=== PATIENT | female | born 1970 | race Caucasian/White ===

== ENCOUNTER → 2018-01-04 09:23 | Outpatient (CLI) | payer MEDICAID, SELFPAY ==
--- NOTE | 2018-01-04 09:38 | MM_ITS ---
MM Dig screening mamm BI w/CAD CAD Screening COMPARISON: Digital mammograms with CAD 01/02/2017 and 02/06/2014 INDICATION: There is no personal or family history of breast cancer. TECHNIQUE: Standard CC and MLO images were obtained. R2 CAD reviewed. FINDINGS: The breasts are closed primarily of fat with very minimal scattered fibroglandular densities in each breast. There are few benign-appearing calcifications in each breast. There is no suspicious lesion and there are no suspicious microcalcifications. IMPRESSION: Fatty type breast parenchyma with no suspicious lesion seen BI-RADS Category: 2 Benign Finding(s) RECOMMENDED FOLLOW-UP: 1YR - 1 YEAR FOLLOW-UP (A letter has been sent to the patient regarding results of the study.)
--- NOTE | 2018-01-04 09:38 | US_ITS ---
US transvaginal HISTORY: ITS.REASON: pelvic pain ORDERING PHYSICIAN: Nelson Gabriel MD PATIENT AGE: 47 years Comparison: None FINDINGS: Uterus is 8 x 4 x 5 cm with a combined endometrial thickness of 9 mm. There are small nabothian cyst present. No obvious uterine mass. The right ovary is 3 x 1.8 cm. The left ovary is 2 x 1.7 cm. No adnexal mass is evident. No cul-de-sac fluid IMPRESSION: Endometrial thickness upper limits of normal otherwise negative pelvic ultrasound
== END ==
PROVIDERS: Family Provider Family Medicine; PCP Family Medicine; Visit Provider Obstetrics & Gynecology
DX: Z12.31 Encounter for screening mammogram for malignant neoplasm of breast (principal); R10.2 Pelvic and perineal pain
CPT/HCPCS: 76830; 77067

== ENCOUNTER 2020-05-03 20:34 | Observation (INO) | payer MEDICAID, SELFPAY ==
[2020-05-03 20:50] VITALS: BP 153/80; RESP 18; TEMP 36.7; O2SAT 99; BMI 68.5
[2020-05-03 21:35] VITALS: BP 129/51; PULSE 88; RESP 18; O2SAT 95
[2020-05-03 21:58] VITALS: BP 127/73; PULSE 88; RESP 18; O2SAT 99
[2020-05-03 21:59] LABS: Basophils # 0.1 K/mm3 (0-0.2); Basophils % 0.5 % (0.1-2.0); Eosinophils # 0.2 K/mm3 (0.0-0.4); Eosinophils % 1.1 % (0.1-12.0); Hematocrit 35.9 % (37.0-47.0); Hemoglobin 11.2 g/dL (12.2-16.2); Lymphocytes # 3.7 K/mm3 (0.7-4.5); Lymphocytes % 26.4 % (10-50); Mean Corpuscular HGB Conc 31.2 g/dL (31.8-35.4); Mean Corpuscular Hemoglobin 26.8 pg (27.0-31.2); Monocytes # 0.4 K/mm3 (0.1-1.0); Neutrophils # 9.7 K/mm3 (1.8-7.8); Platelet Count 440 K/mm3 (142-424); Red Blood Count 4.18 M/mm3 (4.20-5.40); Red Cell Distribution Width 14.7 % (11.5-17.5); White Blood Count 14.1 K/mm3 (4.8-10.8)
[2020-05-03 22:03] LABS: Chloride 100 mmol/L (98-107); Potassium 3.7 mmoL/L (3.5-5.1); Sodium 138 mmol/L (136-145)
[2020-05-03 22:05] LABS: Blood Urea Nitrogen 12 mg/dl (7-17); Creatinine Clearance Estimated 65 mL/min (50-200); Estimated Glomerular Filt Rate 75 ml/min (>60); GFR (African American) 91 ML/MIN (>60)
[2020-05-03 22:06] LABS: Alanine Aminotransferase 16 U/L (12-78); Albumin Level 3.8 g/dl (3.5-5.0); Albumin/Globulin Ratio 1.2 (1.1-1.8); Alkaline Phosphatase 84 U/L (38-126); Anion Gap 10.7 mEq/L (5-15); Aspartate Amino Transferase 25 U/L (14-36); Bilirubin,Total 0.2 mg/dl (0.2-1.3); Calcium 9.3 mg/dl (8.4-10.2); Carbon Dioxide 31 mmol/L (22.0-30.0); Globulin 3.2 g/dL (1.3-3.2); Glucose 170 mg/dl (74-100)
[2020-05-03 22:12] LABS: C-Reactive Protein 42.1 mg/L (0-4)
[2020-05-03 22:14] VITALS: BP 125/73; PULSE 77; RESP 18; O2SAT 97
[2020-05-03 22:24] LABS: Erythrocyte Sedimentation Rate 60 mm/hr (0-30)
--- NOTE | 2020-05-03 22:24 | ECG_ITS ---
APPROVED REPORT Exam: Resting ECG HR:83 bpm ECG Measurements Heart Rate 83 AXES UT 178 P 57 QRSd 74 QRS -7 QT 368 T 4 QTc 432 Conclusion Normal sinus rhythm Late R-wave progression Abnormal ECG Electronically signed by : Desean Ordoñez, 05/04/2020 10:57:27
--- NOTE | 2020-05-03 22:24 | XR_ITS ---
PROCEDURE: XR CHEST 2V CLINICAL HISTORY: chest pain COMPARISON: No exams were available for comparison FINDINGS: The cardiomediastinal silhouette and pulmonary vascularity are within normal limits. No lobar consolidation or collapse evident. There is a small area of increased density overlying the left apex at the 1st rib region and clavicle and may be due to summation artifact. Follow-up may confirm. Cannot exclude a sclerotic bony lesion or developing nodule. No acute bony abnormalities. IMPRESSION: No definite acute finding. Summation artifact versus sclerotic lesion in the left 1st rib or clavicle versus developing nodule. Consider follow-up to confirm stability. Dictated by: Dieudonne Andrews MD 05/04/2020 05:57 Dieudonne Andrews MD in [place] 05/04/2020 05:57
--- NOTE | 2020-05-03 22:40 | HMH.EDCP ---
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 The time I documented below is in addition to time spent performing reported procedures but includes the following listed in this critical care notation. Medical Decision Making - Medical Records Medical records reviewed: Yes: I reviewed the patient's medical records. - Adrián Inquiry Pt receiving controlled substance: No Vital Signs: 05/03/20 20:50 05/03/20 21:35 05/03/20 21:58 Temperature 98.0 F Temperature Source Oral Pulse Rate [Left] 88 88 Respiratory Rate 18 18 18 Blood Pressure [Right Arm] 153/80 H 129/51 L 127/73 Blood Pressure Mean [Right Arm] 104 77 91 Blood Pressure Source [Right Arm] Automatic Cuff Blood Pressure Position [Right Arm] Sitting 02 Sat by Pulse Oximetry 99 95 99 Oxygen Delivery Method Room Air Room Air Room Air 05/03/20 22:14 05/03/20 22:45 05/03/20 23:35 Temperature Temperature Source Pulse Rate [Left] 77 80 87 Respiratory Rate 18 18 18 Blood Pressure [Right Arm] 125/73 121/62 137/71 Blood Pressure Mean [Right Arm] 90 81 93 Blood Pressure Source [Right Arm] Blood Pressure Position [Right Arm] 02 Sat by Pulse Oximetry 97 95 95 Oxygen Delivery Method Room Air Room Air Room Air - Lab Data Lab results reviewed: Yes: I reviewed the patient's lab results. Lab Results 05/03/20 21:50: WBC 14.1 H, RBC 4.18 L, Hgb 11.2 L, Hct 35.9 L, MCV 86.0, MCH 26.8 L, MCHC 31.2 L, RDW 14.7, Plt Count 440 H, MPV 8.0, Neut % (Auto) 69.0, Lymph % (Auto) 26.4, Alger % (Auto) 3.0, Eos % (Auto) 1.1, Baso % (Auto) 0.5, Neut # (Auto) 9.7 H, Lymph # (Auto) 3.7, Alger # (Auto) 0.4, Eos # (Auto) 0.2, Baso # (Auto) 0.1, ESR 60 H 05/03/20 21:50: Sodium 138, Potassium 3.7, Chloride 100, Carbon Dioxide 31 H, Anion Gap 10.7, BUN 12, Creatinine 0.80, Estimated Creat Clear 65, Estimated GFR 75, Est GFR ( Amer) 91, Glucose 170 H, Calcium 9.3, Total Bilirubin 0.2, AST 25, ALT 16, Alkaline Phosphatase 84, C-Reactive Protein 42.1 H, Total Protein 7.0, Albumin 3.8, Globulin 3.2, Albumin/Globulin Ratio 1.2 05/03/20 21:50: Troponin I < 0.01, NT-Pro-B Natriuret Pep 86.6 05/03/20 21:50: TSH 2.12, Thyroxine (T4) 8.8 05/03/20 21:50: SARS-CoV-2 IgG Ab (Rapid) Negative, SARS-CoV-2 IgM Ab (Rapid) Negative Result diagrams: 05/03/20 21:50 05/03/20 21:50 Orders (Tests/Meds): ED MEDICATIONS Generic Name Dose Route Start Last Admin Trade Name Freq PRN Reason Stop Dose Admin Sodium Chloride 1,000 mls @ 999 mls/hr 05/03/20 22:30 05/03/20 22:28 Sod Chlor 0.9% 1000ml Bag IV 05/03/20 23:30 999 mls/hr .Q1H1M JELANI Administration Discontinued Medications Generic Name Dose Route Start Last Admin Trade Name Freq PRN Reason Stop Dose Admin Aspirin 324 mg 05/03/20 22:24 05/03/20 22:27 Aspirin 81mg Chewable Tablet PO 05/03/20 22:25 324 mg ONCE O
[2020-05-03 22:45] VITALS: BP 121/62; PULSE 80; RESP 18; O2SAT 95
[2020-05-03 22:48] LABS: NT Pro Brain Natriuretic Pep. 86.6 pg/mL (0-125)
[2020-05-03 22:55] LABS: Troponin I < 0.01 ng/ml (0.00-0.034)
[2020-05-03 23:13] LABS: Coronavirus 19 IgG Antibody Negative (Negative); Coronavirus 19 IgM Antibody Negative (Negative)
[2020-05-03 23:15] LABS: T4 (Thyroxine) 8.8 ug/dl (5.53-11.0)
[2020-05-03 23:28] LABS: Thyroid Stimulating Hormone 2.12 uIU/mL (0.465-4.68)
[2020-05-03 23:35] VITALS: BP 137/71; PULSE 87; RESP 18; O2SAT 95
[2020-05-04] VITALS (17 sets, daily range): BP systolic 108–137; BP diastolic 42–77; PULSE 70–100; RESP 16–22; TEMP 36.6–36.9; O2SAT 90–96; BMI 61.2; BMI 61.7
--- NOTE | 2020-05-04 | IR_ITS ---
APPROVED REPORT Patient Location: [facility] Hand: YAMILEX Churchill RT (R) PROCEDURES Left heart catheterization Left ventriculogram Selective coronary angiogram INDICATION Unstable angina Informed consent was obtained prior to the procedure. COMPLICATIONS None Estimated Blood Loss: less than 10ml TECHNIQUE One percent lidocaine used to anesthetize the right anterior aspect of the wrist. The right radial artery was accessed via the Seldinger technique. A 6 Chinese sheath was placed in the right radial artery. 2.5 mg of verapamil, 800 mcg of nitroglycerin, 1mg Lidocaine and 5000 U Heparin were given through the arterial sheath. The trap catheter was also used to perform left heart catheterization, left ventriculogram and selective coronary angiogram. At the end of the procedure the sheath was removed good hemostasis was achieved using Traclet band, patient was transferred to the postop holding area in stable condition. ANGIOGRAPHIC RESULTS The left main artery Normal The left anterior descending artery Normal The circumflex artery Normal The right coronary artery Dominant normal The LUU ventriculogram reveals Normal 65% The left ventricular end-diastolic pressure Normal 10 mmHg IMPRESSION Normal coronary arteries Normal ejection fraction Normal left ventricular end-diastolic pressure PLAN 1. Evaluation of noncardiac symptoms Electronically signed by : Lakhwinder Monaco, 05/04/2020 13:09:01
--- NOTE | 2020-05-04 00:34 | PC.NURSE ---
patient up to floor via wheelchair.
--- NOTE | 2020-05-04 01:41 | PC.NURSE ---
She is A&Ox4. She denies SOA. Denies pain. Nitro paste removed from her left side of chest per her request. IV fluids refused. She is NPO and she verbalizes understanding. Oral care swabs available at bedside. She brought home meds but states her is taking them back home because they are in one of those medication containers. She reports feeling tired. 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 She refuses a bath. NSR on telemetry. Potty hat in bathroom and she was educated to use so that output could be measured. She verbalizes understanding. She reports that she has problems swallowing due to the hx of CVA. She also reports that she uses briefs at HS but states that she brought her own.
[2020-05-04 01:49] LABS: Troponin I < 0.01 ng/ml (0.00-0.034)
[2020-05-04 04:32] LABS: Basophils # 0.1 K/mm3 (0-0.2); Basophils % 0.6 % (0.1-2.0); Eosinophils # 0.2 K/mm3 (0.0-0.4); Eosinophils % 1.5 % (0.1-12.0); Hematocrit 33.6 % (37.0-47.0); Hemoglobin 10.4 g/dL (12.2-16.2); Lymphocytes # 3.8 K/mm3 (0.7-4.5); Lymphocytes % 33.5 % (10-50); Mean Corpuscular HGB Conc 31.1 g/dL (31.8-35.4); Mean Corpuscular Hemoglobin 26.9 pg (27.0-31.2); Mean Corpuscular Volume 86.3 fl (81-99); Mean Platelet Volume 8.4 fl (7.4-10.4); Monocytes # 0.4 K/mm3 (0.1-1.0); Monocytes % 3.3 % (1.7-9.3); Neutrophils % 61.1 % (37.0-80.0); Platelet Count 409 K/mm3 (142-424); Red Blood Count 3.89 M/mm3 (4.20-5.40); Red Cell Distribution Width 14.9 % (11.5-17.5); White Blood Count 11.5 K/mm3 (4.8-10.8)
[2020-05-04 04:38] LABS: Chloride 103 mmol/L (98-107); Potassium 3.9 mmoL/L (3.5-5.1); Sodium 139 mmol/L (136-145)
[2020-05-04 04:41] LABS: Anion Gap 9.9 mEq/L (5-15); Blood Urea Nitrogen 13 mg/dl (7-17); Carbon Dioxide 30 mmol/L (22.0-30.0); Chol/HDL Ratio 3.7 (1-3.5); Cholesterol 132 mg/dl (140-200); Creatinine Clearance Estimated 65 mL/min (50-200); Estimated Glomerular Filt Rate 75 ml/min (>60); GFR (African American) 91 ML/MIN (>60); Glucose 139 mg/dl (74-100); HDL Cholesterol 36 mg/dl (40-60); Triglycerides 127 mg/dl (30-150); VLDL Cholesterol 25 mg/dL (0-40)
[2020-05-04 05:13] LABS: POC Glucose,Bedside 134 (70-110)
[2020-05-04 05:17] LABS: Troponin I < 0.01 ng/ml (0.00-0.034)
--- NOTE | 2020-05-04 08:00 | CA_ITS ---
APPROVED REPORT EXAM: Comprehensive 2D, Doppler, and color-flow Echocardiogram Sexual Health Physician: Leti Lee RDCS Ht: 5 ft 2 in Wt: 375lbs BSA: 2.50 BP: 129/51 mmHg Indications: CP,DM,MORBID OBESITY 2D Dimensions LVDd 1.93 cm F: 3.9 - 5.3 M-Mode Dimensions RVDd 2.24 cm (0.9-2.6) LA Diam 2.78 cm (1.9-4.0) LVDd 5.45 cm (3.5-5.7) Ao Diam 2.47 cm (2.0-3.7) LVDs 3.67 cm (3.5-5.7) IVSd 0.72 cm (0.6-1.1) PWd 0.80 cm (0.6-1.1) EF (Teich) 60.50% FS 32.70% EDV (Teich) 144.40 mL ESV (Teich) 57.00 mL LV Diastology E Decel Time 170.00 (160-240 msec) E/A Ratio 1.2 MED E' 5.70 (< 7 cm/sec) E'/MED E' Ratio 20.30 (>14) LAT E' 10.80 (<10 cm/sec) E/LAT E' Ratio 10.71 (>14) Aortic Valve LVOT Max 125.00 (70-110 cm/s) LVOT VTI 30.66 cm AoV Peak Jeremias. 205.00 (50-130 cm/s) AO Peak GR. 16.80 mmHg AO Mean GR. 11.10 (<5 mmHg) AO VTI 49.43 (18-25 cm) Mitral Valve MV E Max Jeremias. 116.00 (40-130 cm/s) MV A Velocity 96.00 (40-130 cm/s) E/A Ratio 1.21 MV Decel. Time 170.00 (160-240 ms) MV PHT 50.00 ms Left Ventricle Left atrium is normal size, left ventricle is normal size, visually estimated ejection fraction 55% with no regional wall motion abnormality, there is no concentric left ventricular hypertrophy, diastolic parameters are within normal range. Right Ventricle Right atrium and right ventricle are normal size and contractility. Aortic Valve Aortic valve is minimally thickened and fibrosed, there is no aortic stenosis or aortic insufficiency. Mitral Valve Mitral valve is grossly normal. There is mild mitral regurgitation. Tricuspid Valve Tricuspid valve is grossly normal, there is mild tricuspid regurgitation, tricuspid regurgitation jet velocity is inadequate for calculation of the right ventricular systolic pressure. Pulmonic Valve Pulmonic valve is poorly visualized. Great Vessels Aortic root is normal size. Pericardium No significant pericardial effusion noted. Conclusion 1. Normal left ventricular size, preserved left ventricular systolic function visually estimated ejection fraction 55% with no regional wall motion abnormality, diastolic parameters are within normal range. 2. Mild mitral and tricuspid regurgitation. 3. No significant pericardial effusion noted. Electronically signed by : Saúl Madrigal, 05/04/2020 10:32:58
--- NOTE | 2020-05-04 08:00 | P.CONPHA_ITS ---
[facility] Pharmacy VTE Monitoring - Patient Demographics Admission date: 05/04/20 Report Date: 05/04/20 Time: 08:00 Allergies/Adverse Reactions: Patient Allergies amoxicillin [AMOXICILLIN] Allergy (Mild, Verified 05/04/20 00:43) cephalexin [From KEFLEX] Allergy (Mild, Verified 05/04/20 00:43) gabapentin [GABAPENTIN] Allergy (Mild, Verified 05/04/20 00:43) Penicillins [PENICILLINS] Allergy (Mild, Verified 05/04/20 00:43) apple Allergy (Verified 05/04/20 00:44) Height: 1.57 m Weight: 151.755 kg Patient Problems: Current Active Problems Chest pain (Acute) Obesity (Acute) Diabetes (Acute) Subdural hygroma (Acute) - VTE Risk Labs: VTE Related Lab Results Hgb 10.4 g/dL (12.2-16.2) L 05/04/20 04:20 Hct 33.6 % (37.0-47.0) L 05/04/20 04:20 Plt Count 409 K/mm3 (142-424) 05/04/20 04:20 BUN 13 mg/dl (7-17) 05/04/20 04:20 Creatinine 0.80 mg/dl (0.52-1.04) 05/04/20 04:20 Estimated Creat Clear 65 mL/min (50-200) 05/04/20 04:20 Was VTE Risk Assessment Performed: Yes VTE Score: 5 VTE Risk Level: Low Risk Clinical Trial Participant: No - Prophylaxis VTE Prophylaxis Ordered?: Yes Types of VTE Prophylaxis: TEDS Knee High Location of Applied Device: Bilateral Lower Extremeties
--- NOTE | 2020-05-04 09:26 | HMH.HP ---
*Admission Date: 05/03/20 <Brittaney Soto 05/04/20 09:34> *Chief complaint: Chest pain, Right-sided weakness <05/04/20 09:34> *History of present illness: Ms. Nova is a 50yo white female with history of DM, HTN, HLP, CVA, obesity, and subdural hygroma who sees Dr. Odonnell in [facility] for her primary care. She presented to the [facility] ED for further evaluation yesterday evening due to concern for episodes of chest pain and lower extremity edema which she has been experiencing for about one week. She was seen at the [facility] ED earlier this week for some right-sided weakness which was felt to be related to subdural hygroma, however, she declined transfer to [place] for neurology consult and left AMA. She was also having the chest pain and swelling at that time, and when they did not improve, she decided to come to [facility] ED for a second opinion. Upon arrival, EKG showed SR with poor R wave progression anteriorly. Initial troponin was normal. Her WBC was elevated as was Sed rate and CRP. Her CXR showed no acute changes. She was admitted for further evaluation and cardiology was consulted. This morning, she is resting quietly in bed. She reports continued intermittent chest discomfort without radiation, SOB, diaphoresis, lightheadedness, or nausea. She notes chronic back and leg pain which is tolerable. She has been up to the bathroom to void with standby assist. <Brittaney Soto 05/04/20 10:00> [facility] History Medical History: Reports:: Asthma, Depression, Diabetes Mellitus Type 2, Hyperlipidemia, Hypertension Denies:: Cancer, Diabetes Mellitus Type 1, MRSA <Darin Soto05/04/20 09:34> *Have you ever received a pneumonia vaccine?: Yes <Darin Soto05/04/20 09:34> *Have you received a flu vaccine this season?: No <Charles05/04/20 09:34> Other Medical History: Reports: Arthritis, Other <CharlesDarin05/04/20 09:34> Other Surgeries: Yes: Colonoscopy, Tubal Ligation, Other (Cyst removed.) <Darin Soto05/04/20 09:34> Amputation: No <Charles05/04/20 09:34> Fractures: No <05/04/20 09:34> - *Social History Last grade of school completed: High school graduate <Charles05/04/20 09:34> Smoking Status: Former smoker <Charles05/04/20 09:34> Tobacco Type: cigarettes <Charles05/04/20 09:34> Alcohol Intake: never <Charles,05/04/20 09:34> Substance Use Type: denies use <Charles05/04/20 09:34> *Occupational Status:: disabled <Charles05/04/20 09:34> Housing: other <05/04/20 09:34> Household Members: other <05/04/20 09:34> *Travel in the last 8 weeks: None <Charles,05/04/20 09:34> - Psychiatric History Pschychiatric History:: Reports:: Depression <Charles05/04/20 09:34> Family Hx:: Cancer, Hyperlipidemia, Hypertension, Thyroid Disorder <05/04/20 09:34> Review of Systems - Constitutional Reports headache(s), Reports weakness, Reports weight gain, Denies fever(s) <Charles05/04/20 09:34> - Eyes Denies blurry vision, Denies change in vision <Charles,05/04/20 09:34> - ENT Denies dizziness, Denies nasal congestion, Denies nasal discharge, Denies post nasal drip, Denies sinus pressure, Denies sore throat <Charles05/04/20 09:34> - *Cardiovascular Reports chest pain, Reports chest pain at rest, Reports shortness of breath, Reports shortness of breath with activity, Reports generalized swelling, Reports leg swelling, Reports lightheadedness <Darin Soto05/04/20 09:34> - *Respiratory Reports cough, Reports shortness of breath, Denies chest congestion <Charles05/04/20 09:34> - *Gastrointestinal Denies abdominal pain, Denies change in bowel habits, Denies change in stools, Denies loose stools, Denies nausea, Denies vomiting <Brittaney Soto - 05/04/20 09:34> - *Genitourinary Denies difficulty urinating, Denies blood in urine <Brittaney Soto 05/04/20 09:34> - *Musculoskeletal Reports back pa
--- NOTE | 2020-05-04 09:36 | HMH.CNCARD ---
History of Present Illness Consult date: 05/04/20 Requesting physician: Evangelist Bhakta Consult reason: chest pain Chief complaint: Chest pain Additional Medical History:: 1. 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 Chronic anticoagulation therapy 2. Diabetes mellitus, treated since 2016 3. Hyperlipidemia, treated since 2016 4. Reported history of atrial fibrillation per patient, on chronic anticoagulation 5. History of tobacco use of greater then [id number] history (4 packs/day for 25 years) discontinued, 2015 6. Subdural hygromas 7. Morbid obesity History of present illness: 50-year-old white female with history as noted above presented to the [facility] emergency department for a second opinion regarding chest pain and lower extremity edema. Patient relates recurrent episodes of substernal discomfort described as both a sharp stabbing pain and a fullness or pressure sensation without radiation to arms or back since Thursday. Symptoms would last only minutes in duration with no associated significant shortness of breath or nausea. She denies any recent fever, chills, cough, vomiting or diarrhea. She has noted some swelling in her upper and lower extremities over the last few days as well but does admit to some dietary indiscretion regarding salt. EKG in the ER showed sinus rhythm with poor R wave progression anteriorly. Patient was kept overnight for observation with troponins returning normal x3. Patient does relate a history of stroke in 2015 and has had some difficulty with remembering tests since then. She does feel like she had a cardiac work-up around that time for atrial fibrillation but is not 100% sure. She does know that she is on anticoagulation because of her stroke and an irregular heartbeat. Cardiology consulted for evaluation and recommendations. Preliminary echocardiogram today shows preserved ejection fraction with no significant valvular heart disease. [facility] History Medical History: Reports:: Asthma, Depression, Diabetes Mellitus Type 2, Hyperlipidemia, Hypertension Denies:: Cancer, Diabetes Mellitus Type 1, MRSA *Have you ever received a pneumonia vaccine?: Yes *Have you received a flu vaccine this season?: No Other Medical History: Reports: Arthritis, Other Other Surgeries: Yes: Colonoscopy, Tubal Ligation, Other (Cyst removed.) Amputation: No Fractures: No - *Social History Last grade of school completed: High school graduate Smoking Status: Former smoker Tobacco Type: cigarettes Alcohol Intake: never Substance Use Type: denies use *Occupational Status:: disabled Housing: other Household Members: other *Travel in the last 8 weeks: None - Psychiatric History Pschychiatric History:: Reports:: Depression Family Hx:: Cancer, Hyperlipidemia, Hypertension, Thyroid Disorder Meds Home Medications Medication Instructions Recorded Confirmed Type albuterol sulfate 90 mcg/actuation 1 puff INHALATION Q4-6H PRN 12/29/17 05/04/20 History aerosol inhaler allopurinol 100 mg tablet 100 mg PO DAILY tab 12/29/17 05/04/20 History apixaban 5 mg tablet 5 mg PO BID 12/29/17 05/04/20 History aspirin 81 mg tablet,delayed 81 mg PO DAILY tab 12/29/17 05/04/20 History release duloxetine 60 mg capsule,delayed 60 mg PO BID cap 12/29/17 05/04/20 History release lisinopril 10 mg tablet 10 mg PO DAILY tab 12/29/17 05/04/20 History loratadine 10 mg capsule 10 mg PO DAILY cap 12/29/17 05/04/20 History metoprolol succinate 50 mg 50 mg PO DAILY tab 12/29/17 05/04/20 History tablet,extended release 24 hr olopatadine 0.1 % eye drops 1 drp OPHTHALMIC BID 12/29/17 05/04/20 History pravastatin 40 mg tablet 20 mg PO HS tab 12/29/17 05/04/20 History selenium sulfide 2.5 % shampoo 1 dose TOPICAL WEEKLY 12/29/17 05/04/20 History torsemide 20 mg tablet 20 mg PO DAILYP PRN 12/29/17 05/04/20 History sitagliptin 100 mg tablet 100 mg PO DAILY 04/26/19 05/04/20 History Famotidine 40 mg PO BID 10
[2020-05-04 11:11] LABS: Basophils % 0.4 % (0.1-2.0); Eosinophils # 0.2 K/mm3 (0.0-0.4); Eosinophils % 1.5 % (0.1-12.0); Hematocrit 34.7 % (37.0-47.0); Hemoglobin 10.8 g/dL (12.2-16.2); Lymphocytes # 3.2 K/mm3 (0.7-4.5); Lymphocytes % 31.6 % (10-50); Mean Corpuscular Hemoglobin 27.4 pg (27.0-31.2); Mean Corpuscular Volume 88.5 fl (81-99); Mean Platelet Volume 8.2 fl (7.4-10.4); Monocytes # 0.5 K/mm3 (0.1-1.0); Monocytes % 4.5 % (1.7-9.3); Neutrophils # 6.3 K/mm3 (1.8-7.8); Platelet Count 368 K/mm3 (142-424); Red Blood Count 3.93 M/mm3 (4.20-5.40); Red Cell Distribution Width 14.9 % (11.5-17.5); White Blood Count 10.1 K/mm3 (4.8-10.8)
[2020-05-04 11:22] LABS: POC Glucose,Bedside 126 (70-110)
--- NOTE | 2020-05-04 13:40 | PC.NURSE ---
verified with catheterization laboratory technician it was okay to order a diabetic and cardiac diet on patient
--- NOTE | 2020-05-04 15:16 | PC.NURSE ---
patient has been drowsy since return from [facility]. has been awake and drinking and eating. no complaints. tracelet being turned down per protocol. rings out as needed. systems within normal limits. no signs of bleeding. vitals stable remains on room air. will continue to monitor.
--- NOTE | 2020-05-04 17:27 | PC.NURSE ---
telfa and tegaderm applied to cath site with no signs of bleeding or hematoma. education given on post cath care
--- NOTE | 2020-05-05 22:14 | HMH.DCSUM ---
General - General Admission date:: 05/04/20 <Evangelist Bhakta - 05/16/20 11:07> 05/04/20 <Kelsey Simmons - 05/05/20 22:40> Discharge date: 05/04/20 <IrisAlejandraKelsey - 05/05/20 22:40> HPI HPI: Ms. Nova is a 50yo white female with history of DM, HTN, HLP, CVA, obesity, and subdural hygroma who sees Dr. Odonnell in [facility] for her primary care. She presented to the [facility] ED for further evaluation due to concern for episodes of chest pain and lower extremity edema which she had been experiencing for about one week. She was seen at the [facility] ED earlier this week for some right-sided weakness which was felt to be related to subdural hygroma. However, she declined to transfer to [place] for neurology consult and left AMA. She was also having the chest pain and swelling at that time. When they did not improve, she decided to come to [facility] ED for a second opinion. Upon arrival, EKG showed SR with poor R wave progression anteriorly. Initial troponin was normal. Her WBC was elevated as was Sed rate and CRP. Her CXR showed no acute changes. She was admitted for further evaluation and cardiology was consulted. The following morning, she was resting quietly in bed. She reported continued intermittent chest discomfort without radiation, SOB, diaphoresis, lightheadedness, or nausea. She noted chronic back and leg pain which was tolerable. She had been up to the bathroom to void with standby assist. <IrisAlejandraKelsey - 05/05/20 22:40> Hospital Course Hospital Course: Patient was admitted with atypical chest pain but with resolution after transdermal nitroglycerin application. EKG was abnormal with poor R wave progression anteriorly. Patient had normal troponins x3. She had multiple cardiac risk factors to include diabetes hypertension, hyperlipidemia and morbid obesity. Therefore she did undergo a cardiac catheterization: [facility] results: ANGIOGRAPHIC RESULTS The left main artery Normal The left anterior descending artery Normal The circumflex artery Normal The right coronary artery Dominant normal The LUU ventriculogram reveals Normal 65% The left ventricular end-diastolic pressure Normal 10 mmHg IMPRESSION Normal coronary arteries Normal ejection fraction Normal left ventricular end-diastolic pressure PLAN 1. Evaluation of noncardiac symptoms After completion of cardiac cath and recovery patient had no further chest pain and was stable for discharge. Discharged to home in stable and satisfactory condition. See Data for other test results. Meds as per reconciliation sheet. To followup with cardiology in 1 week and with PCP, Dr. Odonnell, in 2 weeks. <Kelsey Simmons - 05/05/20 22:40> Objective Vital signs: Temp Pulse Resp BP Pulse Ox 98.3 F 87 18 121/50 L 95 05/04/20 17:22 05/04/20 17:25 05/04/20 17:25 05/04/20 17:25 05/04/20 17:25 <YonyEvangelist Dawson - 05/16/20 11:07> Temp Pulse Resp BP Pulse Ox 98.3 F 87 18 121/50 L 95 05/04/20 17:22 05/04/20 17:25 05/04/20 17:25 05/04/20 17:25 05/04/20 17:25 <Kelsey Simmons - 05/05/20 22:40> Narrative: Exam Vital signs and Labs for Last 24 Hours: Temp Pulse Resp BP Pulse Ox 98.3 F 87 18 121/50 L 95 05/04/20 17:22 05/04/20 17:25 05/04/20 17:25 05/04/20 17:25 05/04/20 17:25 Laboratory Results - last 24 hr <BC 14.1 H, RBC 4.18 L, Hgb 11.2 L, Hct 35.9 L, MCV 86.0, MCH 26.8 L, MCHC 31.2 L, RDW 14.7, Plt Count 440 H, MPV 8.0, Neut % (Auto) 69.0, Lymph % (Auto) 26.4, Beltrami % (Auto) 3.0, Eos % (Auto) 1.1, Baso % (Auto) 0.5, Neut # (Auto) 9.7 H, Lymph # (Auto) 3.7, Beltrami # (Auto) 0.4, Eos # (Auto) 0.2, Baso # (Auto) 0.1, ESR 60 H 05/03/20 21:50: Sodium 138, Potassium 3.7, Chloride 100, Carbon Dioxide 31 H, Anion Gap 10.7, BUN 12, Creatinine 0.80, Estimated Creat Clear 65, Estimated GFR 75, Est GFR ( Amer) 91, Glucose 170 H, Calcium 9.3, Total Bilirubin 0.2, AST 25, ALT 16, Alkaline Phosphatase 84, C-Reactive
[2020-05-06 00:14] LABS: POC Glucose,Bedside 185 (70-110)
== END 2020-05-04 18:37 | disposition home or self-care (01) ==
LOC: ER 20:42 → 2ND 05-04 00:15
PROVIDERS: Internal Medicine; Admitting Provider Family Medicine; Emergency Provider Emergency Medicine; PCP Family Medicine; Visit Provider Family Medicine
DX: I25.118 Atherosclerotic heart disease of native coronary artery with other forms of angina pectoris (principal); I10 Essential (primary) hypertension; E11.9 Type 2 diabetes mellitus without 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s; Z87.891 Personal history of nicotine dependence; E66.01 Morbid (severe) obesity due to excess calories; Z68.44 Body mass index [BMI] 60.0-69.9, adult; I48.20 Chronic atrial fibrillation, unspecified; Z79.4 Long term (current) use of insulin; Z79.82 Long term (current) use of aspirin; Z79.01 Long term (current) use of anticoagulants; Z88.0 Allergy status to penicillin; Z88.1 Allergy status to other antibiotic agents; I69.311 Memory deficit following cerebral infarction; Z79.899 Other long term (current) drug therapy
CPT/HCPCS: 36415; 71046; 80048; 80053; 80061; 82962; 83735; 83880; 84436; 84443; 84484; 85025; 85651; 86140; 86328; 93005; 93306; 93458; 96365; 99152; 99284; C1725; C1769; G0378; J1644; Q9967

== ENCOUNTER → 2020-07-02 17:26 | Outpatient (CLI) | payer MEDICAID, SELFPAY ==
[2020-07-02 19:09] LABS: Coronavirus 19 IgG Antibody Negative (Negative); Coronavirus 19 IgM Antibody Negative (Negative)
== END ==
PROVIDERS: PCP Family Medicine; Visit Provider Specialist
DX: G47.30 Sleep apnea, unspecified (principal); I10 Essential (primary) hypertension; E66.9 Obesity, unspecified; Z86.79 Personal history of other diseases of the circulatory system; Z68.44 Body mass index [BMI] 60.0-69.9, adult
CPT/HCPCS: 36415; 86328; 95811

== ENCOUNTER → 2020-07-03 11:14 | Outpatient (CLI) | payer MEDICAID, SELFPAY ==
--- NOTE | 2020-07-03 11:14 | MR_ITS ---
PROCEDURE: MR HEAD/BRAIN WO/W CON CLINICAL INDICATION: abnormal CT Head Dizziness, weakness, altered gait COMPARISON: No exams were available for comparison TECHNIQUE: Routine multiplanar multi echo sequences are performed without and with gadolinium enhancement. FINDINGS: No midline shift, mass effect, intracranial hemorrhage, or hydrocephalus is evident. The cerebellopontine angles, cerebellum, and brainstem have an unremarkable appearance. No enhancing lesions are apparent. Encephalomalacia changes are present in the left parieto-occipital region. This area does not demonstrate contrast enhancement. Small T2 white matter hyperintensity is present in the left frontal parietal junction nonspecific. There is prominence of the subdural space in the frontal and parietal regions bilaterally left greater than right suggesting bilateral subdural hygromas. No dural enhancement or no acute subdural hemorrhage is evident. The pituitary, optic chiasm, corpus callosum, and craniocervical junction have an unremarkable appearance. The hippocampal gyri are symmetric as are the temporal horns of the lateral ventricles. No mastoid effusion or sinus air-fluid level. IMPRESSION: Encephalomalacia changes in the left parietal occipital region with a nonspecific T2 hyperintensity in the left frontal parietal junction and right frontal lobe. Bilateral frontal parietal subdural hygromas left larger than right. Dictated by: Dieudonne Andrews MD 07/11/2020 09:01 Dieudonne Andrews MD in [place] 07/11/2020 09:01
[2020-07-03 11:45] LABS: Blood Urea Nitrogen 13 mg/dl (7-17); Estimated Glomerular Filt Rate 66 ml/min (>60); GFR (African American) 80 ML/MIN (>60)
== END ==
PROVIDERS: PCP Family Medicine; Visit Provider Specialist
DX: R42 Dizziness and giddiness (principal); G96.08 Other cranial cerebrospinal fluid leak; R93.0 Abnormal findings on diagnostic imaging of skull and head, not elsewhere classified
CPT/HCPCS: 36415; 70553; 82565; 84520; A9576

== ENCOUNTER → 2020-11-12 12:13 | Outpatient (CLI) | payer MEDICAID, SELFPAY ==
--- NOTE | 2020-11-12 12:22 | XR_ITS ---
PROCEDURE: XR FOOT WT BEARING LT 3V CLINICAL INDICATION: foot pain COMPARISON: No exams were available for comparison FINDINGS: No fracture or dislocation. No lytic or blastic change. There is normal mineralization. The joint spaces are well-preserved. No significant degenerative/arthritic changes. No erosive changes evident. Other findings:Calcaneal spur is noted IMPRESSION: No acute findings. Dictated by: Kyleigh Conteh 11/12/2020 14:34 Kyleigh Conteh in [place] 11/12/2020 14:34
--- NOTE | 2020-11-12 12:22 | XR_ITS ---
PROCEDURE: XR FOOT WT BEARING RT 3V CLINICAL INDICATION: foot pain COMPARISON: No exams were available for comparison FINDINGS: No fracture or dislocation. The tarsals, metatarsals and phalanges are unremarkable. Calcaneal spur is noted. No significant soft tissue abnormality. IMPRESSION: No acute findings. Dictated by: Kyleigh Conteh 11/12/2020 14:16 Kyleigh Conteh in [place] 11/12/2020 14:16
== END ==
PROVIDERS: PCP Family Medicine; Visit Provider Nurse Practitioner
DX: M79.672 Pain in left foot (principal); M79.671 Pain in right foot
CPT/HCPCS: 73630

== ENCOUNTER → 2021-06-27 16:32 | Outpatient (CLI) | payer MEDICAID, SELFPAY ==
--- NOTE | 2021-06-27 16:33 | MM_ITS ---
PROCEDURE INFORMATION: Exam: MG Bilateral Screening 3D Mammography Exam date and time: 06/27/2021 4:33 PM Age: 51 years old Clinical indication: Encounter for screening mammogram for malignant neoplasm of breast TECHNIQUE: Imaging protocol: Bilateral screening tomosynthesis and 2D mammography including computer-aided detection (CAD) when performed. COMPARISON: 1. MG SCBI MM Dig screening mamm BI w/CAD 01/04/2018 9:49 AM 2. MG DMSB DIG MAMM-SCREEN LILY W/CAD 01/02/2017 9:12 AM FINDINGS: MAMMOGRAPHY: Breast composition: The breasts are almost entirely fatty. Mass: None. Architectural distortion: None. Calcifications: No suspicious calcifications. Asymmetric density: None. Skin thickening: None. Axillary adenopathy: None. IMPRESSION: No mammographic evidence of malignancy. Annual screening is recommended unless otherwise clinically indicated. ASSESSMENT: BI-RADS Category 1: Negative
== END ==
PROVIDERS: PCP Family Medicine; Visit Provider Nurse Practitioner Obstetrics & Gynecology
DX: Z12.31 Encounter for screening mammogram for malignant neoplasm of breast (principal)
CPT/HCPCS: 77063; 77067

== ENCOUNTER → 2021-07-08 13:12 | Outpatient (CLI) | payer MEDICAID, SELFPAY ==
--- NOTE | 2021-07-08 13:12 | US_ITS ---
FINAL REPORT CLINICAL HISTORY: postmenopausal bleeding FINDINGS: Transvaginal sonographic images of the pelvis were obtained. The uterus measures 9.4 x 4.4 cm and is at the upper limits of normal in size. The endometrium measures 1.1 cm. No uterine mass is identified. The right ovary measures 3 cm in length and left ovary is not seen. Normal blood flow seen to the ovaries. There is no evidence of free fluid. IMPRESSION: The endometrium measures 1.1 cm. If postmenopausal this finding is abnormal and gynecological exam is recommended. Reviewed, Interpreted and Dictated by Maurilio Lynn MD Transcribed by Miladys Lopez Authenticated by Maurilio Lynn MD on 07/08/2021 04:57:58 PM [facility]
== END ==
PROVIDERS: PCP Family Medicine; Visit Provider Nurse Practitioner Obstetrics & Gynecology
DX: N95.0 Postmenopausal bleeding (principal)
CPT/HCPCS: 76830

== ENCOUNTER → 2023-06-08 12:59 | Outpatient (CLI) | payer MEDICAID, SELFPAY ==
--- NOTE | 2023-06-08 13:00 | CA_ITS ---
APPROVED REPORT EXAM: Comprehensive 2D, Doppler, and color-flow Echocardiogram Lead Generator: Lissett Greene CRT Ht: 5 ft 2 in Wt: 282lbs BSA: 2.21 BP: 147/48 mmHg Indications: Shortness of Breath, Diabetes, Obesity, Hyperlipidemia, Hypertension/HDD, Pre-Op 2D Dimensions Left Atrium 3.83 cm LVEF (Cameron's) 50.60 % LVOT 2.08 cm (M/F) 1.5-2.5 LV Volume 104.00 mL LA Volume 25.30 mL LA Volume Index 11.40 mL/m2 (M/F) 16-34 EF AP4 44.80 % EF AP2 54.1 % EF BP 50.6 % GL Strain -16.3 % M-Mode Dimensions RVDd 2.51 cm (0.9-2.6) LVDd 3.96 cm (3.5-5.7) Ao Diam 3.92 cm (2.0-3.7) LVDs 2.64 cm (3.5-5.7) IVSd 1.66 cm (0.6-1.1) PWd 0.85 cm (0.6-1.1) EF (Teich) 62.50% FS 33.30% EDV (Teich) 68.30 mL TAPSE 3.00 (<1.7) ESV (Teich) 25.60 mL LV Diastology E Decel Time 181 (160-240 msec) E/A Ratio 1.39 LAT E' 9.9 (>= 10 cm/sec) LAT A' 8.90 cm/s E/LAT E' Ratio 8.85 (<= 14) Aortic Valve LVOT Max 109.0 (70-110 cm/s) ELGIN Index 1.02 cm2/m2 LVOT VTI 27.27 cm AoV Peak Jeremias. 182.0 (50-130 cm/s) AO Peak GR. 12.60 mmHg AO Mean GR. 7.10 (<5 mmHg) AO VTI 41.0 (18-25 cm) ELGIN (VTI) 2.26 (2.5-4.5 cm2) Mitral Valve MV E Max Jeremias. 88.0 (40-130 cm/s) MV A Velocity 63.0 (40-130 cm/s) E/A Ratio 1.39 MV Decel. Time 181 (160-240 ms) Tricuspid Valve TR P. Velocity 165.00 cm/s RAP Estimate 10.00 mmHg RVSP 20.90 mmHg Left Ventricle The left ventricle is normal size. The left ventricular systolic function is normal. The left ventricular ejection fraction is within the normal range. There is normal left ventricular wall thickness. There is normal LV segmental wall motion. The left ventricular diastolic function is normal. LVEF is 60%. Right Ventricle The right ventricle is normal size. The right ventricular systolic function is normal. Atria The left atrium size is normal. The right atrium size is normal. There is no Doppler evidence of interatrial shunt. Aortic Valve The aortic valve opens well. There is no aortic valvular stenosis. No aortic regurgitation is present. Mitral Valve The mitral valve is normal in structure. There is no mitral valve regurgitation noted. Tricuspid Valve The tricuspid valve leaflets are thin and pliable. Trace tricuspid regurgitation. There is insufficient TR jet to estimate RVSP. Pulmonic Valve The pulmonary valve is normal in structure. Trace pulmonic regurgitation. Great Vessels The aortic root is normal in size. The ascending aorta is normal in size. IVC is normal in size and collapses >50% with inspiration. Pericardium There is no pericardial effusion. Other Information Study Quality: Fair Conclusion Normal biventricular systolic function. No significant valvular stenosis or regurgitation. Electronically signed by : Sintia Waite MD 06/10/2023 11:52:16
--- NOTE | 2023-06-08 13:09 | US_ITS ---
FINAL REPORT CLINICAL HISTORY: decreased pedal pulses, obesity, DM, HLD, TIA COMPARISON: None FINDINGS: ANKLE-BRACHIAL PRESSURE INDICES Pressure indices are as follows: RIGHT LOWER EXTREMITY: Ankle-brachial pressure index: 1.2 Comments: Normal LEFT LOWER EXTREMITY: Ankle-brachial pressure index: 1.1 Comments: Normal IMPRESSION: No evidence of significant obstructive peripheral vascular disease of the lower extremities Reviewed, Interpreted and Dictated by Pako Yang III, MD Transcribed by Gladis Rolon Authenticated and [facility]
== END ==
LOC: RT 13:00
PROVIDERS: PCP Family Medicine; Visit Provider Nurse Practitioner Family
DX: R06.00 Dyspnea, unspecified (principal); R09.89 Other specified symptoms and signs involving the circulatory and respiratory systems; I25.10 Atherosclerotic heart disease of native coronary artery without angina pectoris; I48.91 Unspecified atrial fibrillation
CPT/HCPCS: 93306; 93923

== ENCOUNTER → 2023-06-25 10:05 | Outpatient (CLI) | payer MEDICAID, SELFPAY ==
[2023-06-25 10:40] LABS: Basophils # 0.1 K/mm3 (0-0.2); Basophils % 0.7 % (0.1-2.0); Eosinophils # 0.2 K/mm3 (0.0-0.4); Eosinophils % 1.6 % (0.1-12.0); Hematocrit 35.8 % (37.0-47.0); Hemoglobin 11.5 g/dL (12.2-16.2); Lymphocytes # 4.1 K/mm3 (0.7-4.5); Lymphocytes % 39.9 % (10-50); Mean Corpuscular HGB Conc 32.2 g/dL (31.8-35.4); Mean Corpuscular Hemoglobin 27.7 pg (27.0-31.2); Mean Platelet Volume 8.2 fl (7.4-10.4); Monocytes # 0.4 K/mm3 (0.1-1.0); Monocytes % 3.5 % (1.7-9.3); Neutrophils # 5.6 K/mm3 (1.8-7.8); Neutrophils % 54.3 % (37.0-80.0); Platelet Count 329 K/mm3 (142-424); Red Blood Count 4.16 M/mm3 (4.20-5.40); Red Cell Distribution Width 15.7 % (11.5-17.5); White Blood Count 10.3 K/mm3 (4.8-10.8)
[2023-06-25 11:00] LABS: Chloride 101 mmol/L (98-107); Sodium 135 mmol/L (136-145)
[2023-06-25 11:01] LABS: Potassium 4.7 mmoL/L (3.5-5.1)
[2023-06-25 11:03] LABS: Alanine Aminotransferase 24 U/L (12-78); Albumin/Globulin Ratio 1.3 (1.1-1.8); Alkaline Phosphatase 102 U/L (38-126); Anion Gap 12.7 mEq/L (5-15); Aspartate Amino Transferase 27 U/L (14-36); Bilirubin,Total 0.3 mg/dl (0.2-1.3); Blood Urea Nitrogen 13 mg/dl (7-17); Carbon Dioxide 26 mmol/L (22.0-30.0); Estimated Glomerular Filt Rate 65 ml/min (>60); GFR (African American) 79 ML/MIN (>60)
[2023-06-25 11:04] LABS: Calcium 8.8 mg/dl (8.4-10.2); Glucose 210 mg/dl (74-100)
[2023-06-25 13:07] LABS: Thyroid Stimulating Hormone 3.02 uIU/mL (0.465-4.68)
== END ==
PROVIDERS: PCP Family Medicine; Visit Provider Specialist
DX: R20.2 Paresthesia of skin (principal); G62.9 Polyneuropathy, unspecified; E66.9 Obesity, unspecified; E11.9 Type 2 diabetes mellitus without 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s; Z79.84 Long term (current) use of oral hypoglycemic drugs
CPT/HCPCS: 36415; 80053; 82746; 83036; 84443; 85025

== ENCOUNTER 2023-09-03 14:17 | Outpatient (CLI) | payer MEDICAID, SELFPAY ==
[2023-09-03 14:45] LABS: Basophils # 0.1 K/mm3 (0-0.2); Basophils % 0.9 % (0.1-2.0); Eosinophils # 0.2 K/mm3 (0.0-0.4); Hematocrit 40.5 % (37.0-47.0); Hemoglobin 12.4 g/dL (12.2-16.2); Lymphocytes # 3.9 K/mm3 (0.7-4.5); Lymphocytes % 35.5 % (10-50); Mean Corpuscular HGB Conc 30.6 g/dL (31.8-35.4); Mean Corpuscular Volume 91.4 fl (81-99); Mean Platelet Volume 8.3 fl (7.4-10.4); Monocytes # 0.4 K/mm3 (0.1-1.0); Neutrophils # 6.3 K/mm3 (1.8-7.8); Neutrophils % 57.6 % (37.0-80.0); Platelet Count 341 K/mm3 (142-424); Red Blood Count 4.43 M/mm3 (4.20-5.40); Red Cell Distribution Width 15.5 % (11.5-17.5)
[2023-09-03 15:13] LABS: Alanine Aminotransferase 22 U/L (12-78); Albumin Level 3.8 g/dl (3.5-5.0); Albumin/Globulin Ratio 1.3 (1.1-1.8); Alkaline Phosphatase 86 U/L (38-126); Anion Gap 10.1 mEq/L (5-15); Aspartate Amino Transferase 30 U/L (14-36); Bilirubin,Total 0.3 mg/dl (0.2-1.3); Blood Urea Nitrogen 13 mg/dl (7-17); Calcium 8.9 mg/dl (8.4-10.2); Carbon Dioxide 30 mmol/L (22.0-30.0); Chloride 102 mmol/L (98-107); Estimated Glomerular Filt Rate 74 ml/min (>60); GFR (African American) 90 ML/MIN (>60); Glucose 150 mg/dl (74-100); Potassium 5.1 mmoL/L (3.5-5.1); Sodium 137 mmol/L (136-145); Total Protein,Serum 6.8 g/dl (6.3-8.2)
[2023-09-03 15:37] LABS: HCG,Quantitative < 2 mIU/ml (0-5.42)
== END 2023-09-03 23:59 ==
PROVIDERS: PCP Family Medicine; Visit Provider Nurse Practitioner Obstetrics & Gynecology
DX: N95.0 Postmenopausal bleeding (principal)
CPT/HCPCS: 36415; 80053; 84702; 85025

== ENCOUNTER 2023-09-07 08:42 | Day surgery (SDC) | payer MEDICAID, SELFPAY ==
[2023-09-04 11:57] VITALS: BMI 50.3
[2023-09-07] VITALS (8 sets, daily range): BP systolic 126–154; BP diastolic 56–88; PULSE 71–83; RESP 16–18; TEMP 35.9–36.2; O2SAT 93–97
[2023-09-07 09:05] LABS: POC Glucose,Bedside 273 (70-110)
[2023-09-07] MEDS: LACTATED RINGERS 1000ML 1,000 ML 25 ML IV (09:15)
--- NOTE | 2023-09-07 09:22 | EXP.ANES.CKL ---
[facility] Disclaimer: The information contained in this section may have been updated after the patient was seen, as this information can be updated by other users. Medical History Afib Diabetes History of atrial fibrillation History of CVA (cerebrovascular accident) Hyperlipidemia Hypertension Normal coronary arteries ADAMS on CPAP Postmenopausal bleeding Sleep apnea Surgical History History of D&C History of left salpingo-oophorectomy History of oral surgery Family History Other Alcoholism Anemia Asthma Cancer Diabetes Hyperlipidemia Hypertension Stroke Thyroid disorder Social History Smoking Status: Former smoker tobacco type: cigarettes alcohol intake: never substance use type: denies use current occupational status: disabled Travel in the last 8 weeks: None household members: other housing: other caffeine: Yes [facility] Anesthesia Checklist Patient Identification Patient Identification: Arm Band and Verbal (Name & ) Structural Data Admitted From: Home Planned Operative Procedure/s: Hyst/D & C Consent for Planned Operative Procedure(s) Verified: Yes NPO Status Verified Time NPO: 00:00 Chart Verification Results Verified: CBC and BMP Additional verifications Anesthesia Reactions: No Hx Blood Transfusions: Yes Blood Transfusion Reaction: No Airway Assessment Mallampati Score:: Class I C-Spine Mobility Assessed: Yes TMJ Mobility Assessed: Yes Dentition: Edentulous Neurological Assessment Level of Consciousness: Awake Hx Seizures: No Numbness or tingling in extremities: No Anesthesia Plan Anesthesia Risk discussed: Yes Anesthesia Plan: Verified ASA Class: III Anesthesia Type: General
[2023-09-07] MEDS: SODIUM CHLORIDE IRRIG SOLUTION 3,000 ML 200 ML IR (10:24)
[2023-09-07] MEDS: CLINDAMYCIN PHOSPHATE/D5W 900 MG/50 ML PIGGYBACK 106 MG IV (10:26)
[2023-09-07] MEDS: ROPIVACAINE 0.5% 30ML VIAL 150 MG (10:45)
--- NOTE | 2023-09-07 11:01 | P.OP_ITS ---
Date of procedure: 09/07/23 Pre-op Diagnosis:: Postmenopausal bleeding Post-op Diagnosis:: Postmenopausal bleeding, endometrial polyps Procedure performed:: Hysteroscopy with MyoSure resection. Surgeon:: George Cruz MD ASSOCIATE FINANCIAL ANALYST:: Other (Sara Vidales) Anesthesia: LMA Estimated blood loss (mL): 10 Clinical Note:: She is a 53-year-old lady who complains of bleeding postmenopausally. Ultrasound showed that the endometrium was thickened at 11 mm. As result of that she was offered hysteroscopy with MyoSure resection. Operative findings:: She had at least 3 polyps within the endometrial cavity. There was a long thin polyp as well as a larger anterior polyp approximately 5 mm in size. There was a third small polyp at the uterine cornua on the right side. The endometrium appeared somewhat lush as well. Operative note:: She was taken the operating room where LMA anesthesia was found to be adequate. She was prepped draped normal sterile fashion lithotomy position. A weighted speculum is placed in the vagina although it did not hold very well and as result of that we used right angle retractors. The anterior lip of the cervix was grasped and dilators used to dilate the cervix to approximately 7 mm. I then inserted the hysteroscope into the uterine cavity. The MyoSure device was then attached and the polyps were resected along with the endometrium. The samples were sent to pathology. We then injected approximately 20 cc of 0.25% ropivacaine at the 5:00 and 7:00 positions of the cervix. She tolerated the procedure well and was taken recovery room in excellent condition. All sponge, instrument counts were correct. The estimated blood loss was approximately 10 cc. Condition: stable Disposition: PACU Specimens:: Polyps, endometrial curettings Complications:: None
--- NOTE | 2023-09-07 11:07 | EXP.ANES.I ---
[facility] Anesthesia Record Part I Anesthesia Record I Intake, IV Amount: 600 Hydration: Adequate Estimated blood loss (mL): 10 Urine output (mL): 50 Blood Products used (#): none Blood Pressure: 141/85 SaO2: 93 Pulse Rate: 80 Airway Patency: Patent Respiratory Rate: 16 Temperature: 96.7 F Patient is:: Awake and Stable Stable to PACU at:: 11:03
[2023-09-07 11:13] LABS: POC Glucose,Bedside 238 (70-110)
--- NOTE | 2023-09-14 16:56 | P.PNANES_ITS ---
[facility] Anesthesia Record Part II Anesthesia Record Part II Discharge Time: 11:28 Destination: Surgical Day Care (OP Surgery) PACU nurse assessment reviewed?: Yes Patient Condition:: Good Anesthesia Complications:: None Swallowing reflex intact?: Yes Airway Patency: Patent Cyanosis?: No Blood Pressure: 134/82 SaO2: 96 Respiratory Rate: 16 Pulse Rate: 73 Temperature: 97.2 F Mental Status: Alert & Oriented Pain level:: 0 Nausea and/or vomitting:: None Intake, IV Amount: 0 Hydration: Adequate
[2023-09-14 16:57] VITALS: BP 134/82; PULSE 73; RESP 16; TEMP 36.2; O2SAT 96
== END 2023-09-07 11:58 | disposition home or self-care (01) ==
PROVIDERS: Visit Provider Nurse Practitioner Obstetrics & Gynecology
PROC: (CPT 58558; principal; 2023-09-07 10:00)
DX: N95.0 Postmenopausal bleeding (principal); N85.00 Endometrial hyperplasia, unspecified; E11.9 Type 2 diabetes mellitus without 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s
CPT/HCPCS: 58558; 82962; 96374

== ENCOUNTER 2025-01-20 14:01 | Outpatient (CLI) | payer MEDICAID, SELFPAY ==
--- OUTSIDE RECORDS SUMMARY | 2024-11-22 14:45 | XMS_ITS | Encounter Summary ---
Author Organization [place] [address] Care Team Providers Care Technical Service Rep Name Role Phone Domo Odonnell MD Primary Care Provider [phone] Lali Hyde APRN Unavailable [phone] Reason for Visit * Reason Comments Medication Management DM CCA initial * Consultation (Routine) - Pending Review Specialty Diagnoses / Procedures Referred By Contact Referred To Contact Pharmacist - Pharmacotherapy Diagnoses Type 2 diabetes mellitus with stage 2 chronic kidney disease, without long-term current use of insulin (HCC) Domo Odonnell MD [address] [place] [address] Phone: tel: fax: Referral ID Status Reason Start Date Expiration Date V isits Requested Visits Authorized [id number] Pending Review 10/27/2024 10/27/2025 99 [phone] Encounter Details Date Type Department Care Team (Latest Contact Info) Description 11/22/2024 2:45 PM EDT Telemedicine [facility] [address] [place] [address] Valentina Arellano [facility] Type 2 diabetes mellitus with stage 2 chronic kidney disease, without long-term current use of insulin (HCC) (Primary Dx) Social History Tobacco Use Types Packs/Day Years Used Date Smoking Tobacco: Former Cigarettes 4 33.2 0 07/06/1982 - 09/09/2015 Smokeless Tobacco: Never Alcohol Use Standard Drinks/Week Comments No 0 (1 standard drink = 0.6 oz pur e alcohol) [facility] Utilities Answer Date Recorded In the past 12 months has th e electric, gas, oil, or water company threatened to shut off services in your home? Yes 11/26/2023 Overall Financial Resource Strain (CARDIA) Answe r Date Recorded How hard is it for you to pa y for the very basics like food, housing, medical care, and heating? Not hard at all 11/26/2023 PHQ-2 Answer Date Recorded PHQ-2 Total Score 5 03/30/2024 [facility] [place] of Occupat ional Health - Occupational Stress Questionnaire Answer Date Recorded Do you feel stress - tense, restless, nervous, or anxious, or unable to sleep at night because your mind is troubled all the time - these days? Very much 11/26/2023 Exercise Vital Sign Answer Date Recorde d On average, how many days pe r week do you engage in moderate to strenuous exercise (like a brisk walk)? 0 days 11/26/2023 On average, how many minutes do you engage in exercise at this level? 0 min 11/26/2023 Hunger Vital Sign Answer Date Recorded Within the past 12 months, y ou worried that your food would run out before you got the money to buy more. Never true 11/26/19 24 Within the past 12 months, t he food you bought just didn't last and you didn't have money to get more. Never true 11/26/2023 PRAPARE - Transportation Answer Date Re corded In the past 12 months, has l ack of transportation kept you from medical appointments or from getting medications? Yes 11/04 In the past 12 months, has l ack of transportation kept you from meetings, work, or from getting things needed for daily living? Yes 11/26/2023 Housing Stability Vital Sign Answer Samuel e Recorded In the last 12 months, was t here a time when you were not able to pay the mortgage or rent on time? No 11/26/2023 In the past 12 months, how m any times have you moved where you were living? 1 11/26/2023 At any time in the past [address] [facility], were you homeless or living in a senior care (including now)? No 11/26/2023 Sexually Active Control Partners Comments Not Currently Comments No Sex and Gender Information Value Date Recorded Sex Assigned at Not on file Legal Sex Female 11:07 PM EDT Gender Identity Not on file Sexual Orientation Not on file documented as of this encounter Functional Status * Is the person deaf or does he/she have serious difficulty hearing? Answer Date of Assessment Author No 01/16/2022 2:30 PM EDT Ron Singh MA * Is the person blind or does he/she have serious difficulty seeing even when wearing glasses? Answer Date of Assessment Author No 01/16/2022 2:30 PM EDT Ron Singh MA * Does this person have serious difficulty walking or climbing stairs? Answer Date of Assessment Author No 01/16/2022 2:30 PM EDT Ron Singh MA * Does this person have difficulty dressing or bathing? Answer Date of Assessment Author No 01/16/2022 2:30 PM EDT Ron Singh MA * Because of a physical, mental or emotional condition, does this person have difficulty doing errands alone such as visiting a doctor's office or shopping? Answer Date of Assessment Author No 01/16/2022 2:30 PM EDT Ron Singh MA documented as of this encounter Mental Status * Because of a physical, mental or emotional condition, does this person have serious difficulty concentrating, remembering or making decisions? Answer Entry Date Author No 01/16/2022 2:30 PM EDT Ron Singh MA documented in this encounter Progress Notes * Valentina Arellano RPH - 11/22/2024 2:45 PM EDT Pharmacy Consult 11/22/2024 with Valentina Arellano RPH: Judi Nova was referred for pharmacist management of type 2 diabetes per collaborative care agreement. Patient started taking Trulicity with first dose 11/13/24 and has not taken second dose yet. Plan was to resume Mounjaro but insurance did not cover without failure or contraindication to Trulicity. Patient reports had some dizziness and stomach pain in the last week since taking first dose of Trulicity but patient reports had some of these symptoms prior to starting Trulicity as well. Patient reports had follow up with neurology this week and reported concerns about dizziness due toother comorbidities. Current diabetes regimen Dapagliflozin (Farxiga) 10 mg once daily Metformin 1000 mg twice daily Trulicity 0.75 mg once weekly - first dose 11/13, no dose sent Prior medications tried/failed Ozempic - side effects, dizzy, make sick Mounjaro 2.5 mg weekly - planned to restart 10/27/24 but not covered at [facility] d/t needing to try Trulicity first, previously tolerated well Insulin glargine - changed to non-insulin therapy Januvia - changed to GLP1 for higher efficacy (Bydureon ordered 2018 but never filled due to [place] denial) Medication Adherence Patient reports using pill box that she sets up weekly herself and missing doses less often than once monthly. Patient reports sometimes taking AM doses late due to sleeping in. Diet Briefly discussed and will plan to discuss further at future visits. Patient reports small amounts/grazing throughout the day, including lots of snacking. She reports she tries to eat a diverse diet with fruits, vegetables, grains. Patient does not choose or eat much meat per patient report today. Activity Patient reports trying to Get around more to help with her blood sugars, but not sure that it is helping. Will discuss more at future visits. Labs: Lab Results Component Value Date HGBA1C 10.0 (A) 10/27/2024 HGBA1C 8.1 (H) 03/30/2024 HGBA1C 8.0 (A) 03/30/2024 Lab Results Component Value Date MICROALBUR 10 04/22/2024 URINEMICROAL 46.9 10/27/2024 CREATININEUR 50 04/22/2024 LABMICR 30 - 300 (A) 04/22/2024 Lab Results Component Value Date CREATININE 0.97 10/27/2024 BUN 8 10/27/2024 NA 136 10/27/2024 K 4.6 10/27/2024 CL 101 10/27/2024 CO2 20 (L) 10/27/2024 GFRCKDEPI 68 10/27/2024 Lab Results Component Value Date WBC 14.7 (H) 10/27/2024 HGB 13.4 10/27/2024 HCT 43.4 10/27/2024 MCV 92.7 10/27/2024 PLT 385 (H) 10/27/2024 Health Maintenance Summary Upcoming Diabetic Eye Exam (Every 2 Years) Next due on 04/22/2026 04/22/2024 Registry Metric: DM Last Gradable [facility] Eye Exam Result Only the first 1 history entries have been loaded, but more history exists. Reported self-monitoring of blood glucose (SMBG) Patient has glucometer and Dexcom at home but is not checking her sugars at this time due to fear of needles and wanting to avoid due to this. Assessment/Plan: Medication Management - Patient willing to give 2nd dose of Trulicity since unsure if side effects or other ongoing symptoms unrelated to medication. - Patient will either put on Dexcom OR start checking fasting blood sugar 2-3 x/week. Offered to help with Dexcom in office if patient willing to come in - patient will think about it. - Patient will give second dose of Trulicity today. Counseling Provided - Goal A1c and blood sugars - Use of Dexcom and importance of monitoring blood sugars - Risk of uncontrolled diabetes - Medication mechanism and role of different medications working together Follow Up: 1 week with pharmacist to follow up on second dose of Trulicity and blood sugars. Thank you for consult. Pharmacist will continue to follow as needed Valentina Arellano RPH [facility] Delicatessen Manager Pharmacist documented in this encounter Plan of Treatment Upcoming Encounters Date Type Department Care Team (Late st Contact Info) Description 04/12/2025 12:40 PM EDT Office Visit [facility] [place] [address] [place] [address] Betsy Garcia, JANET [address] [address] Scheduled Referrals Name Type Priority Associated Diagnoses Order Schedule AMB REFERRAL TO PHARMACY/MEDICATION MANAGEMENT Outpatient Referral Routine Type 2 diabetes mellitus with stage 2 chronic kidney disease, without long-term current use of insulin (HCC) Ordered: 10/27/2024 documented as of this encounter Goals Goal Patient Goal Type Associated Problems Recent Progress Patient-Stated? Author Blood Pressure < 140/90 Blood Pressure 124/68(2024 1:56 PM EDT) No Belinda Yeboah MA BMI (Calculated) < 30 General 48.4(10/28/19 1:56 PM EDT) No Belinda Yeboah MA Maintain a healthy diet, exercise regularly and maintain an ideal body weight General No Lea Martinez RMA Stay Tobacco Free Lifestyle No Lea Martinez RMA HEMOGLOBIN A1C < 7.0 Result Component 10(10/27/2024 2:03 PM EDT) No Belinda Yeboah MA documented as of this encounter Visit Diagnoses Diagnosis Type 2 diabetes mellitus with stage 2 chronic kidney disease, without long-term current use of insulin (HCC)- Primary documented in this encounter Additional Health Concerns Assessment Noted Time PHQ-9 Depression Total Score: 17 024 1:00 PM EDT PHQ-2 Depression Total Score: 5 03/30/20 24 1:00 PM EDT documented as of this encounter Care Teams Technical Service Rep Relationship Specialty Start Date End Date Domo Odonnell MD [address] [place] [address] PCP - General Family Medicine 12/06/12 Lali Hyde APRN [address] [place] [address] Nurse Practitioner 05/16/16 documented as of this encounter
--- NOTE | 2025-01-20 14:00 | MM_ITS ---
PROCEDURE INFORMATION: Exam: MG Bilateral Screening 3D Mammography Exam date and time: 01/20/2025 2:08 PM Age: 54 years old Clinical indication: Screening examination TECHNIQUE: Imaging protocol: Bilateral Screening tomosynthesis and 2D mammography including computer-aided detection (CAD) when performed. COMPARISON: 1. MG MM DIG SCREENING MAMM BI W/CAD 06/27/2021 4:33 PM 2. MG SCBI MM Dig screening mamm BI w/CAD 01/04/2018 9:49 AM FINDINGS: MAMMOGRAPHY: Breast composition: The breasts are almost entirely fatty. Mass: No suspicious masses. Architectural distortion: None. Calcifications: No suspicious calcifications. Asymmetric density: None. Skin thickening: None. Axillary adenopathy: None. IMPRESSION: No mammographic evidence of malignancy. Annual screening is recommended unless otherwise clinically indicated. ASSESSMENT: BI-RADS Category 1: Negative.
--- OUTSIDE RECORDS SUMMARY | 2025-01-20 14:05 | XMS_ITS | Encounter Summary ---
Author Organization [place] [address] Care Team Providers Care Keno Writer/Runner Name Role Phone Domo Odonnell MD Primary Care Provider [phone] Lali Hyde LOG WASHER Unavailable [phone] Reason for Visit * Reason Onset Date Comments Results 10/28/2024 Labs 10/27/24 Encounter Details Date Type Department Care Team (Latest Contact Info) Description 10/28/2024 Results Follow-Up [facility] [address] [facility] [place] [address] Domo Odonnell MD [address] [place] [address] MICROALBUMIN/CREATINI NE RATIO URINE, CBC WITH DIFF, COMPREHENSIVE METABOLIC PANEL, Additional followed-up results: 3 Social History Tobacco Use Types Packs/Day Years Used Date Smoking Tobacco: Former Cigarettes 4 33.2 0 07/06/1982 - 09/09/2015 Smokeless Tobacco: Never Alcohol Use Standard Drinks/Week Comments No 0 (1 standard drink = 0.6 oz pur e alcohol) [facility] Utilities Answer Date Recorded In the past 12 months has e electric, gas, oil, or water company threatened to shut off services in your home? Yes 11/26/2023 Overall Financial Resource Strain (CARDIA) Francise r Date Recorded How hard is it for you to pa y for the very basics like food, housing, medical care, and heating? Not hard at all 11/26/2023 PHQ-2 Answer Date Recorded PHQ-2 Total Score 5 03/30/2024 [facility] - Occupational Stress Questionnaire Answer Date Recorded [...] any time in the past 12 m [facility], were you homeless or living in a nursing home (including now)? No 11/26/2023 Sexually Active Control [...] Ron Singh MA documented in this encounter Miscellaneous Notes * Telephone Encounter - Rosalind White RMA - 10/28/2024 9:16 AM EDT Images from the original note were not included. Select the most appropriate reason for this telephone message: Patient Calling for Results Patient called for results on Which Provider ordered the test? Dr Odonnell Date of test: 10/27/24 Advised patient of: abnormal result. Patient Instructions/ Questions: na Medications Ordered/Pended (if yes, list medication): N/A Medications/Orders Needed: N/A Pharmacy Location Verified: No Other: Please put in the patient results note that Pt is aware of the following results Domo Odonnell MD 10/28/2024 6:31 AM EDT +microalbumin Working on sugar control, already on [place] inhibitor and farxiga Remainder of labs are ok documented in this encounter Plan of Treatment Upcoming Encounters Date Type Department Care Team (Late st Contact Info) Description 04/12/2025 12:40 PM EDT Office Visit [facility] [place] [address] [place] [address] Betsy Garcia APRN [address] [facility] [address] [place] [address] documented as of this encounter Goals Goal [...] documented as of this encounter Visit Diagnoses Not on filedocumented in this encounter Additional Health Concerns Assessment Noted Time PHQ-9 Depression Total Score: 17 024 1:00 PM EDT PHQ-2 Depression Total Score: 5 03/30/20 24 1:00 PM EDT documented as of this encounter Care Teams Keno Writer/Runner Relationship Specialty Start Date End Date Domo Odonnell MD [address] [place] [address] PCP - General Family Medicine 12/06/12 Lali Hyde APRN [address] [place] [address] Nurse Practitioner 05/16/16 documented as of this encounter
--- OUTSIDE RECORDS SUMMARY | 2025-01-20 14:05 | XMS_ITS | Encounter Summary ---
Author Organization [place] [address] Care Team Providers Care Manufacturing Laborer Name Role Phone Domo Odonnell MD Primary Care Provider [phone] Lali Hyde DISPLAY DECORATOR Unavailable [phone] Reason for Visit * Reason Comments Medication Refill Encounter Details Date Type Department Care Team (Late st Contact Info) Description 11/21/2024 Refill [facility] [address] [facility] [place] [address] Domo Odonnell MD [address] [place] [address] Medication Refill Social History Tobacco Use Types Packs/Day Years Used Date Smoking Tobacco: Former Cigarettes 4 33.2 0 07/06/1982 - 09/09/2015 Smokeless Tobacco: Never Alcohol Use Standard Drinks/Week Comments No 0 (1 standard drink = 0.6 oz pur e alcohol) [facility] Utilities Answer Date Recorded In the past 12 months has [employer] electric, gas, oil, or water company threatened to shut off services in your home? Yes 11/26/2023 Overall Financial Resource Strain (CARDIA) Francise r Date Recorded How hard is it for you to pa y for the very basics like food, housing, medical care, and heating? Not hard at all 11/26/2023 PHQ-2 Answer Date Recorded PHQ-2 Total Score 5 03/30/2024 [facility] [place] of Occupat ional Health - Occupational Stress [...] any time in the past 12 m [facility], were you homeless or living in a detention (including now)? No 11/26/2023 Sexually Active Control [...] Ron Singh MA documented in this encounter Ordered Prescriptions Prescription Sig Dispense Quantity Refills Last Filled Start Date End Date metFORMIN (GLUCOPHAGE) 1,000 mg Oral TabletIndications:T ype 2 diabetes mellitus with stage 2 chronic kidney disease, with long-term current use of insulin (HCC) TAKE 1 TABLET BY MOUTH 2 TIMES DAILY (WITH MEALS). 200 Tablet 1 11/22/2024 documented in this encounter Miscellaneous Notes * Telephone Encounter - Kathya Nunez CPhT - 11/22/2024 11:46 AM EDT metFORMIN (GLUCOPHAGE) 1,000 mg Oral Tablet Future Visit: n/a Last Assessed Visit: 10/27/24 Follow-Up Date: 04/28/25 All protocols passed. Refills approved and sent to requesting pharmacy. Routed to [facility] if applicable. documented in this encounter Plan of Treatment Upcoming Encounters Date Type Department Care Team (Late st Contact Info) Description 04/12/2025 12:40 PM EDT Office Visit [facility] [address] [address] Betsy Garcia APRN [address] [facility] [address] [place] [address] documented as of this encounter [...] mellitus with stage 2 chronic kidney disease, with long-term current use of insulin (HCC) documented in this encounter Discontinued Medications Medication Sig Discontinue Reason Start Date End Da te metFORMIN (GLUCOPHAGE) 1,000 mg Oral TabletIndications:Type 2 diabetes mellitus with stage 2 chronic kidney disease, with long-term current use of insulin (HCC) TAKE 1 TABLET BY MOUTH 2 TIMES DAILY (WITH MEALS). 10/13/2024 11/22/2024 documented as of this encounter Additional Health Concerns Assessment Noted Time PHQ-9 Depression Total Score: 17 024 1:00 PM EDT PHQ-2 Depression Total Score: 5 03/30/20 24 1:00 PM EDT documented as of this encounter Care Teams Manufacturing Laborer Relationship Specialty Start Date End Date Domo Odonnell MD [address] [place] [address] PCP - General Family Medicine 12/06/12 Lali Hyde APRN [address] [place] [address] Nurse Practitioner 05/16/16 documented as of this encounter
--- OUTSIDE RECORDS SUMMARY | 2025-01-20 14:05 | XMS_ITS | Encounter Summary ---
Author Organization Healthcare Address [address] [place] [address] Care Team Providers Care Bung Remover Name Role Phone Domo Odonnell MD Primary Care Provider Festus Alan MD Unavailable [phone] Festus Alan MD Unavailable Encounter Details Date Type Department Care Team (Late st Contact Info) Description 11/27/2020 Abstract [facility] [address] [place] [address] Festus Alan MD [address] [place] [address] Social History Tobacco Use Types Packs/Day Years Used Date Smoking Tobacco: Former Comments Unknown Sex and Gender Information Value Date Recorded Sex Assigned at Not on file Legal Sex Female 6:14 PM EDT Gender Identity Not on file Sexual Orientation Not on file documented as of this encounter Last Filed Vital Signs Vital Sign Reading Time Taken Comments Blood Pressure 130/68 11/27/2020 4:48 PM EDT Pulse 87 11/27/2020 4:48 PM EDT Temperature - - Respiratory Rate - - Oxygen Saturation 95% 11/27/2020 4:48 PM EDT Inhaled Oxygen Concentration - - Weight 156 kg (343 lb 11.2 oz) 11/27/2020 4:48 P M EDT Height 157.5 cm (5' 2 ) 11/27/2020 4:48 PM EDT Body Mass Index 62.86 11/27/2020 4:48 PM EDT documented in this encounter Plan of Treatment Not on file documented as of this encounter Visit Diagnoses Not on filedocumented in this encounter Care Teams Bung Remover Relationship Specialty Start Date End Date Domo Odonnell MD [address] [place] [address] PCP - General 11/16/20 Festus Alan MD [address] [place] [address] Surgeon Neurosurgery 01/25/21 Festus Alan MD [address] [place] [address] Surgeon Neurosurgery 03/15/21 documented as of this encounter
--- OUTSIDE RECORDS SUMMARY | 2025-01-20 14:05 | XMS_ITS | Clinical Summary ---
Author Organization [facility] Address [address] [place] [address] Care Team Providers Care Data Center Manager Name Role Phone Domo Odonnell MD Primary Care Provider [phone] Festus Alan MD Unavailable [phone] Festus Alan MD Unavailable [phone] Allergies Active Allergy Reactions Criticality Noted Date Comments Ampicillin Other - please docum ent in the comment field Low 01/25/2021 Apple Juice Other - please docum ent in the comment field Low 09/06/2019 Patient reports she can not eat them she is allergic, did not specify states never been able to eat since a kid Azithromycin Itching Medium 06/24/2014 itching Cephalexin Unknown - Patient st ates they do not know rxn details Low 08/03/2020 Gabapentin Unknown - Patient st ates they do not know rxn details,Other - please document in the comment field Low 11/17/2012 Floating feeling; off balance; dizzy Naproxen Other - please docum ent in the comment field Low 01/25/2021 To sleepy Pantoprazole Other - please docum ent in the comment field Low 04/10/2016 Constant Vomiting Penicillins Unknown - Patient st ates they do not know rxn details Low 08/03/2020 Pregabalin Other - please docum ent in the comment field Low 07/26/2020 Weight gain, fluid retention Warfarin Nausea And Vomiting Low 10/08/2015 Medications famotidine (Pepcid) 40 MG tablet TAKE 1 TABLET TWICE DAILY. 08/03/19 21 Active lisinopril 10 MG tablet TAKE 1 TABLET DAILY FOR BLOOD PRESSURE. 08/03/19 21 Active metFORMIN (Glucophage) 1000 MG tablet TAKE 1 TABLET EVERY 12 HOURS DAILY. 08/03/19 21 Active olopatadine (Patanol) 0.1 % ophthalmic solution INSTILL 1 DROP INTO AFFECTED EYE(S) TWICE DAILY DIRECTED. 08/03/19 21 Active acetaminophen (Tylenol) 500 MG tablet Take 1,000 mg by mouth 4 (four) times a day if needed. 07/26/19 21 Active Blood Glucose Monitoring Suppl (Rx NetworksStyle glucose monitoring) kit Use as directed to check blood sugar 07/24/19 18 Active fluorouracil (Efudex) 5 % cream Apply topically twice a day. 03/11/20 19 Active glucose blood (Gamer Guidesuch Ultra) test strip USE TO TEST BLOOD SUGAR ONCE DAILY 11/09/19 21 Active Lantus SoloStar 100 UNIT/ML injection Inject 74 Units under the skin every night. 01/09/20 21 Active Insulin Pen Needle (BD Pen Needle Esha U/F) 32G X 4 MM misc Use to inject insulin daily 11/09/19 21 Active ketoconazole (NIZOral) 2 % shampoo APPLY TO SCALP, LATHER AND LEAVE ON FOR 5 MINUTES THEN RINSE. USE 3 TIMES A WEEK 02/17/20 20 Active selenium sulfide (Selsun) 2.5 % shampoo APPLY TOPICALLY DAILY FOR 2 WEEKS THEN APPLY THURSDAY AND THURSDAY FOR MAINTENANCE 01/09/20 21 Active albuterol 108 (90 Base) MCG/ACT inhaler INHALE 1 TO 2 PUFFS EVERY 4 TO 6 HOURS NEEDED. 08/03/19 21 Active allopurinol (Zyloprim) 100 MG tablet Take 100 mg by mouth twice a day. 11/09/19 21 Active pravastatin (Pravachol) 40 MG tablet Take 40 mg by mouth every night. 11/08/19 21 Active torsemide (Demadex) 20 MG tablet Take 20 mg by mouth 1 (one) time each day. 11/09/19 21 Active metoprolol succinate XL (Toprol-XL) 50 MG 24 hr tablet Take 50 mg by mouth 1 (one) time each day. Do not crush or chew. Active amitriptyline (Elavil) 25 MG tablet Take by mouth every night. Active SITagliptin (Januvia) 100 MG tablet Take 100 mg by mouth 1 (one) time each day. Active loratadine (Claritin) 10 MG tablet Take 10 mg by mouth 1 (one) time each day. Active lansoprazole (Prevacid) [address] capsule Take 30 mg by mouth 1 (one) time each day before breakfast. Do not crush or chew. Active apixaban (Eliquis) 5 MG tablet Take 1 tablet (5 mg total) by mouth 2 (two) times a day. 60 tablet 03/04/20 Active aspirin 81 MG EC tablet Take 1 tablet (81 mg total) by mouth 1 (one) time each day. 1 tablet 03/04/20 Active Lancets (OneTouch Delica Plus [id number]) misc SUBCUTANEOUS (INJECT UNDER THE SKIN) 1 EACH DAILY. 02/14/20 Active Asmanex, 30 Metered Doses, 220 MCG/INH inhaler 04/11/20 Active tiZANidine (Zanaflex) 4 MG tablet Take 4 mg by mouth. 03/14/20 Active diphenhydrAMIN E (BENADryl) 25 MG capsule Take by mouth at night if needed for itching. Active DULoxetine (Cymbalta) [address] capsule Take 60 mg by mouth twice a day. 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 01/25/2021 Overview (02/28/2021): Sliding Scale Insulin for glycemic control while in ICU Hold home regimen while in ICU FS per ICU policy Idiopathic chronic gout of multiple sites jason middleton 04/09/2018 Overview (02/28/2021): Continue home meds as appropriate Primary osteoarthritis involving multiple joints 04/09/2018 Chronic allergic rhinitis 12/17/2017 Hyperlipidemia associated with type 2 diabetes m matthew 12/13/2015 Overview (02/28/2021): Continue home meds as appropriate Morbid obesity due to excess calories 09/11/2015 Overview (02/27/2021): BMI: 60.7 Complicates all aspects of care Tobacco use 09/11/2015 Overview (02/27/2021): Complicates all aspects of care. Smoking cessation education Nicotine patch as indicated Asthma 09/15/2014 Overview (02/27/2021): Resume home medications as appropriate IS as needed CXR and neb treatment as indicated Assessment & Plan (02/27/2021 5:28 PM EDT): Fibromyalgia 07/13/2013 Overview (02/28/2021): Continue home meds as apppropriate DDD (degenerative disc disease), cervical 2010 Hyperlipidemia 09/04/2010 Overview (02/27/2021): Will resume home regimen once taking PO Resolved Problems Problem Noted Date Diagnosed Date Resolved Date Irritant hand dermatitis 08/26/2019 Seborrheic dermatitis 08/26/20192020 Carpal tunnel syndrome of right wrist 04/09/2018 02/28/2021 Dysphagia as late effect of cerebrovascular accident (CVA) 09/16/2017 02/28/2021 Family history of colon cancer 08/26/2017 02/28/2021 Glaucoma 12/18/2016 02/28/2021 Dysarthria as late effect of cerebrovascular accident (CVA) 09/14/2015 02/28/2021 Overview (01/25/2021): Last Assessment & Plan: Doing muc better. Atrial flutter 09/12/2015 02/28/2021 Overview (01/25/2021): Last Assessment & Plan: Doing well Seeing card No bleeding or problems on Eliquis. LVH (left ventricular hypertrophy) 08/08/2011 02/28/2021 GERD (gastroesophageal reflux disease) 03/24/2011 02/28/2021 Overview (01/25/2021): Last Assessment & Plan: Doing well. But needing PPI and H2 susy Family History Medical History Relation Name Comments Hyperlipidemia Other 1 Hypertension Other 2 Other cancer Other 3 Thyroid disease Other 4 Relation Name Status Comments Other 1 Other 2 Other 3 Other 4 Social History Tobacco Use Types Packs/Day Years Used Date Smoking Tobacco: Former Cigarettes Q uit: 2016 Smokeless Tobacco: Never Comments:quit 5 years ago Alcohol Use Standard Drinks/Week Comments Not Currently 0 (1 standard drink = 0.6 oz pur e alcohol) Comments Unknown Sex and Gender Information Value Date Recorded Sex Assigned at Not on file Legal Sex Female 6:14 PM EDT Gender Identity Not on file Sexual Orientation Not on file Last Filed Vital Signs Vital Sign Reading Time Taken Comments Blood Pressure 120/60 05/17/2021 1:50 PM EST Pulse 106 05/17/2021 1:50 PM EST Temperature 36.8 C (98.2 F) 02/28/2021 8:00 AM EDT Respiratory Rate 16 05/17/2021 1:50 PM EST Oxygen Saturation 98% 05/17/2021 1:50 PM EST Inhaled Oxygen Concentration - - Weight 155 kg (341 lb 7.9 oz) 05/17/2021 1:50 PM EST Height 157.5 cm (5' 2 ) 05/17/2021 1:50 PM EST Body Mass Index 62.46 05/17/2021 1:50 PM EST Plan of Treatment Health Maintenance Due Date Last Done Comments [facility]-Depression Screening 1968 [facility]-/Child/Adol SDOH Screenings 1968 [facility]- SDOH Screenings 1986 [facility]-Adult SDOH Screenings 1986 [facility]-DTaP,Tdap,and Td Vaccine s (1 - Tdap) 1987 [facility]-Pap Smear 1989 [facility]-Cervical Cancer Screening 1998 [facility]-HPV/Cotest 1998 CT Colonography 2013 Colonoscopy 2013 FIT-DNA 2013 FIT 2013 FOBT 2013 Sigmoidoscopy 2013 [facility]-Colorectal Cancer Screening 2013 [facility]-Zoster Vaccines (1 of 2) 2018 [facility]-Pneumococcal Vaccine: 50 + Years (2 of 2 - PCV) 12/19/2018 12/19/2017 [id number] Vaccine (1 - season) 2024 [facility]-Influenza Vaccine (#1) 2025 05/15/2021 [facility]-Hepatitis B Vaccines Completed 021, 08/26/2019 HPV Vaccines Aged Out No longer eligi ble based on patient's age to complete this topic [facility]-HIB Vaccines Aged Out No longer e ligible based on patient's age to complete this topic [facility]-Hepatitis A Vaccines Aged Out No longer eligible based on patient's age to complete this topic [facility]-IPV Vaccines Aged Out No longer e ligible based on patient's age to complete this topic [facility]-Rotavirus Vaccines Aged Out No lo nger eligible based on patient's age to complete this topic Medical Devices Implanted Type [employer] Device Identifier Shelf Expiration Date Model / Serial / Lot Closure Device Vip Angioseal 8 Fr - [id number] Implanted:Qty: 1 on 02/27/2021 by Festus Alan MD at [facility] [id number] 09/02/2021 [id number] / / [id number] Insurance [facility] [place] [address] Care Teams Data Center Manager Relationship Specialty Start Date End Date Domo Odonnell MD [address] [place] [address] PCP - General 11/16/20 Festus Alan MD [address] [place] [address] Surgeon Neurosurgery 01/25/21 Festus Alan MD [address] [place] [address] Surgeon Neurosurgery 03/15/21
--- OUTSIDE RECORDS SUMMARY | 2025-01-20 14:05 | XMS_ITS | Encounter Summary ---
Author Organization [place] [address] Care Team Providers Care Police Service Technician Name Role Phone Domo Odonnell MD Primary Care Provider [phone] Lali Hyde PYROTECHNICS PRESS TENDER Unavailable [phone] Reason for Visit * Reason Onset Date Comments Central Order Completion Outreach 12/12/2024 Mammogram/LDCT Encounter Details Date Type Department Care Team (Late st Contact Info) Description 12/12/2024 [facility] [address] [place] [address] Domo Odonnell MD [address] [place] [address] Central Order Completion Outreach (Mammogram/LDCT) Social History Tobacco Use Types Packs/Day Years Used Date Smoking Tobacco: Former Cigarettes 4 33.2 0 07/06/1982 - 09/09/2015 Smokeless Tobacco: Never Alcohol Use Standard Drinks/Week Comments No 0 (1 standard drink = 0.6 oz pur e alcohol) [facility] Utilities Answer Date Recorded In the past [...] Date Recorded PHQ-2 Total Score 5 03/30/2024 [facility] Questionnaire Answer Date [...] any time in the past 12 m [facility], were you homeless or living in a mcfp (including now)? No 11/26/2023 Sexually Active Control [...] documented in this encounter Progress Notes * Annetta Andrade RN - 12/12/2024 2:54 PM EDT SEP Order Completion Outcome Tracking Contact Attempt:: Final Mammogram Outcome:: Patient Declined LDCT Outcome:: Patient Declined Patient declined reason:: Patient Availability (Pt's is in the hospital following a SC. Pt will call back.) documented in this encounter Plan of Treatment Upcoming Encounters Date Type Department Care Team (Late st Contact Info) Description 04/12/2025 12:40 PM EDT Office Visit [facility] [address] [place] [address] Betsy Garcia APRN [address] [address] documented as of this encounter Goals [...] documented as of this encounter Care Teams Police Service Technician Relationship Specialty Start Date End Date Domo Odonnell MD [address] [place] [address] PCP - General Family Medicine 12/06/12 Lali Hyde APRN [address] [place] [address] Nurse Practitioner 05/16/16 documented as of this encounter
--- OUTSIDE RECORDS SUMMARY | 2025-01-20 14:05 | XMS_ITS | Encounter Summary ---
Author Organization [place] [address] Care Team Providers Care Customer Support Advisor Name Role Phone Domo Odonnell MD Primary Care Provider [phone] Lali Hyde MACHINE CLOTH TRIMMER Unavailable [phone] Reason for Visit * Reason Comments Medication Refill Encounter Details Date Type Department Care Team (Late st Contact Info) Description 12/15/2024 Refill [facility] [address] [facility] [place] [address] Domo Odonnell MD [address] [place] [address] Medication Refill Social History Tobacco Use Types Packs/Day Years Used Date Smoking Tobacco: Former Cigarettes 4 33.2 0 07/06/1982 - 09/09/2015 Smokeless Tobacco: Never Alcohol Use Standard Drinks/Week Comments No 0 (1 standard drink = 0.6 oz pur e alcohol) [facility] Utilities Answer Date Recorded In the past 12 months has [employer] electric, gas, oil, or water company threatened to shut off services in your home? Yes 11/26/2023 Overall Financial Resource Strain (CARDIA) Francise r Date Recorded How hard is it for you to pa y for the very basics like food, housing, medical care, and heating? Not hard at all 11/26/2023 PHQ-2 Answer Date Recorded PHQ-2 Total Score 5 03/30/2024 [facility]at ional [facility] - Occupational Stress [...] any time in the past 12 m [facility], were you homeless or living in a fdc (including now)? No 11/26/2023 Sexually Active Control [...] Refills Last Filled Start Date End Date ergocalciferol (DRISDOL) 1,250 mcg (50,000 unit) Oral CapsuleIndications :Vitamin D deficiency TAKE 1 CAPSULE BY MOUTH ONCE A WEEK. 4 Capsule 12/16/2024 VENTOLIN HFA 90 mcg/actuation Inhl HFA Aerosol InhalerIndications :Mild intermittent asthma without 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 INHALE 1 PUFF INTO THE LUNGS EVERY 6 HOURS NEEDED FOR WHEEZING 18 g 2 12/16/2024 DEXCOM G7 SENSOR [facility] DeviceIndications: Type 2 diabetes mellitus with stage 2 chronic kidney disease, with long-term current use of insulin (HCC) 1 EACH BY [facility].(NON-DRUG ; COMBO ROUTE) ROUTE EVERY 10 DAYS. 3 Each 12/16/2024 5 documented in this encounter Miscellaneous Notes * Telephone Encounter - Leticia Harrell, [facility] - 12/16/2024 9:08 AM EDT Dexcom Sensor There is no CRS protocol for this medication. Ergocalciferol 1250 There is no CRS protocol for this medication. Ventolin Future Visit: None Last Assessed Visit: 10/27/24 Follow-Up Date: 04/28/25 All protocols passed. Refills approved and sent to requesting pharmacy. Routed to [facility] if applicable. documented in this encounter Plan of Treatment Upcoming Encounters Date Type Department Care Team (Late st Contact Info) Description 04/12/2025 12:40 PM EDT Office Visit [facility] [place] [address] [place] [address] Betsy Garcia, JANET [address] [address] documented as of this encounter Goals Goal Patient Goal Type Associated Problems Recent Progress Patient-Stated? Author Blood Pressure < 140/90 Blood Pressure 124/68(2024 1:56 PM EDT) No Belinda Yeboah MA BMI (Calculated) < 30 General 48.4(10/28/19 1:56 PM EDT) No Belinda Yeboah MA Maintain a healthy diet, exercise regularly and maintain an ideal body weight General No Lae Martinez RMA Stay Tobacco Free Lifestyle No Lea Martinez RMA HEMOGLOBIN A1C < 7.0 Result Component 10(10/27/2024 2:03 PM EDT) No Belinda Yeboah MA documented as of this encounter Visit Diagnoses Diagnosis Mild intermittent asthma without 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 Unspecified asthma Type 2 diabetes mellitus with stage 2 chronic kidney disease, with long-term current use of insulin (HCC) Vitamin D deficiency Unspecified vitamin D deficiency documented in this encounter Discontinued Medications Medication Sig Discontinue Reason Start Date End Da te VENTOLIN HFA 90 mcg/actuation Inhl HFA Aerosol InhalerIndications:Mild intermittent asthma without 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 Inhale 1 Puff into the lungs every 6 hours as needed. for wheezing 10/27/2024 12/16/2024 DEXCOM G7 SENSOR [facility] DeviceIndications:Type 2 diabetes mellitus with stage 2 chronic kidney disease, with long-term current use of insulin (HCC) 1 EACH BY [facility].(NON-DRUG; COMBO ROUTE) ROUTE EVERY 10 DAYS. 10/13/2024 12/16/2024 ergocalciferol (DRISDOL) 1,250 mcg (50,000 unit) Oral CapsuleIndications:Vitam in D deficiency Take 1 Capsule by mouth once a week. 10/27/2024 12/16/2024 documented as of this encounter Additional Health Concerns Assessment Noted Time PHQ-9 Depression Total Score: 17 024 1:00 PM EDT PHQ-2 Depression Total Score: 5 03/30/20 24 1:00 PM EDT documented as of this encounter Care Teams Customer Support Advisor Relationship Specialty Start Date End Date Domo Odonnell MD [address] [place] [address] PCP - General Family Medicine 12/06/12 Lali Hyde APRN [address] [place] [address] Nurse Practitioner 05/16/16 documented as of this encounter
--- OUTSIDE RECORDS SUMMARY | 2025-01-20 14:05 | XMS_ITS | Clinical Summary ---
Author Organization [facility] Address [address] [place] [address] Phone Care Team Providers Care Accounts Receivable Coordinator Name Role Phone Domo Odonnell MD Primary Care Provider [phone] Lali Hyde APRN Unavailable [phone] Allergies Active Allergy Reactions Criticality Noted Date Comments Naproxen Sodium Other (See Comments) To sleepy Ampicillin Apple Other (See Comments) 09/06/2019 Patient reports she can not eat them she is allergic, did not specify states never been able to eat since a kid Warfarin Nausea And Vomiting Low 10/08/2015 Gabapentin Other (See Comments) 11/17/2012 Floating feeling; off balance; dizzy Cephalexin 08/31/2011 Pregabalin Other (See Comments) 07/26/2020 Weight gain, fluid retention Semaglutide Other (See Comments) 10/27/2024 [place] poorly on this. Did much better on mounjaro Pantoprazole 04/10/2016 Constant Vomiting Penicillins 08/31/2011 Azithromycin Itching Medium 06/24/2014 itching Medications aspirin 81 mg Oral Tablet, Chewable Take 1 Tab by mouth daily. 016 Active Miscellaneous Medical Supply Misc Misc Transfer bench for shower 1 Each 018 Active acetaminophen (TYLENOL) 500 mg Oral TabletIndications :Fibromyalgia,Sadie darcy osteoarthritis involving multiple joints Take 2 Tabs by mouth 4 times daily as needed. Max dose is 8 tabs daily (4000 mg). 200 Tab 12 021 Active fluticasone propionate (FLOVENT HFA) 110 mcg/actuation Inhl HFA Aerosol InhalerIndication s:Mild intermittent asthma without 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 Inhale 2 Puffs into the lungs 2 times daily. 12 g 2 021 Active FEROSUL 325 mg (65 mg iron) Oral TabletIndications :Iron deficiency anemia, unspecified iron deficiency anemia type TAKE 1 TABLET BY MOUTH DAILY (WITH BREAKFAST). 30 Tablet 1 024 Active lisinopriL (PRINIVIL;ZESTRIL ) 10 mg Oral TabletIndications :Cerebrovascular accident, old,LVH (left ventricular hypertrophy) TAKE 1 TABLET BY MOUTH DAILY. 100 Tablet 2 025 Active lancets (ONETOUCH DELICA PLUS LANCET) 30 gauge [facility] MiscIndications:T ype 2 diabetes mellitus with stage 2 chronic kidney disease, unspecified whether prison insulin use (HCC) 1 [place] [facility] [place] COMBO ROUTE) ROUTE DAILY. 100 Each 025 Active ONETOUCH ULTRA TEST [facility] StripIndications: Type 2 diabetes mellitus with stage 2 chronic kidney disease, unspecified whether prison insulin use (HCC) USE TO TEST BLOOD SUGAR ONCE DAILY 100 Strip 025 Active Blood-Glucose Meter (ONETOUCH ULTRA2 METER) [facility] USE DIRECTED TO CHECK BLOOD SUGAR 100 Each 025 Active famotidine (PEPCID) 40 mg Oral TabletIndications :Gastroesophageal reflux disease with esophagitis without hemorrhage TAKE 1 TABLET BY MOUTH 2 TIMES DAILY. 200 Tablet 1 025 Active allopurinoL (ZYLOPRIM) 300 mg Oral TabletIndications :Idiopathic chronic gout of multiple sites without tophus TAKE 1 TABLET BY MOUTH DAILY. 100 Tablet 1 025 Active metoprolol succinate (TOPROL-XL) 50 mg Oral Tablet Sustained Release 24 hrIndications:Cer ebrovascular accident, old,LVH (left ventricular hypertrophy),Typi warner atrial flutter (HCC) TAKE 1 TABLET BY MOUTH DAILY. 100 Tablet 1 025 Active torsemide (DEMADEX) 20 mg Oral TabletIndications :LVH (left ventricular hypertrophy) Take 1 Tablet by mouth daily. 90 Tablet 1 025 Active pravastatin (PRAVACHOL) 40 mg Oral TabletIndications :Hyperlipidemia associated with type 2 diabetes mellitus (HCC),Cerebrovasc ular accident, old TAKE 1 TABLET BY MOUTH ONCE DAILY 90 Tablet 1 025 Active loratadine (CLARITIN) 10 mg Oral TabletIndications :Mild intermittent asthma without 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 Take 1 Tablet by mouth daily as needed. 90 Tablet 1 025 Active lansoprazole (PREVACID) 30 mg Oral Capsule, Delayed Release(E.C.)Arpita cations:Gastroeso phageal reflux disease with esophagitis without hemorrhage Take 1 Capsule by mouth daily. 90 Capsule 1 025 Active DULoxetine (CYMBALTA) 60 mg Oral Capsule, Delayed Release(E.C.)Arpita cations:Major depressive disorder, recurrent episode, mild,Fibromyalgia TAKE 1 CAPSULE BY MOUTH 2 TIMES DAILY 180 Capsule 1 025 Active dapagliflozin propanediol (FARXIGA) 10 mg Oral TabletIndications :Type 2 diabetes mellitus with stage 2 chronic kidney disease, without long-term current use of insulin ([facility]) Take 1 Tablet by mouth daily. 90 Tablet 1 025 Active apixaban (ELIQUIS) 5 mg Oral TabletIndications :Typical atrial flutter (HCC),Cerebrovasc ular accident, old Take 1 Tablet by mouth 2 times daily. 180 Tablet 1 025 Active tirzepatide (MOUNJARO) 5 mg/0.5 mL SubQ Pen InjectorIndicatio ns:Type 2 diabetes mellitus with stage 2 chronic kidney disease, without long-term current use of insulin ([facility]) Subcutaneous (Inject under the skin) 5 mg once a week. 2 mL 5 025 Active dulaglutide (TRULICITY) 0.75 mg/0.5 mL SubQ Pen Injector Subcutaneous (Inject under the skin) 0.5 mL once a week. 2 mL 2 025 Active metFORMIN (GLUCOPHAGE) 1,000 mg Oral TabletIndications :Type 2 diabetes mellitus with stage 2 chronic kidney disease, with long-term current use of insulin ([facility]) TAKE 1 TABLET BY MOUTH 2 TIMES DAILY (WITH MEALS). 200 Tablet 1 025 Active VENTOLIN HFA 90 mcg/actuation Inhl HFA Aerosol InhalerIndication s:Mild intermittent asthma without 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 INHALE 1 PUFF INTO THE LUNGS EVERY 6 HOURS NEEDED FOR WHEEZING 18 g 2 025 Active ergocalciferol (DRISDOL) 1,250 mcg (50,000 unit) Oral CapsuleIndication s:Vitamin D deficiency TAKE 1 CAPSULE BY MOUTH ONCE A WEEK. 4 Capsule 025 Active DEXCOM G7 SENSOR Misc DeviceIndications :Type 2 diabetes mellitus with stage 2 chronic kidney disease, with long-term current use of insulin (HCC) 1 [place] [facility] [place] COMBO ROUTE) ROUTE EVERY 10 DAYS. 3 Each 025 Active amitriptyline (ELAVIL) 50 mg Oral TabletIndications :Fibromyalgia TAKE 1 TABLET BY MOUTH NIGHTLY. 30 Tablet 2 025 Active amitriptyline (ELAVIL) 50 mg Oral TabletIndications :Fibromyalgia TAKE 1 TABLET BY MOUTH NIGHTLY. 30 Tablet 2 025 2024 Discontinued DEXCOM G7 SENSOR Misc DeviceIndications :Type 2 diabetes mellitus with stage 2 chronic kidney disease, with long-term current use of insulin ([facility]) 1 EACH BY [facility] [place]; COMBO ROUTE) ROUTE EVERY 10 DAYS. 3 Each 025 2024 Discontinued Active Problems Patient Care Coordination No te Formatting of this note migh t be different from the original. [facility] audit completed by Purnima Caballero RN on 03/19/2023. Problem Noted Date Diagnosed Date Ventral hernia without obstruction or gangrene 1 Assessment & Plan (04/22/2024 2:16 PM EDT): D/w pt No need to treat Unlikely to cause an acute problem If becoming more symptomatic can consider repair Should not impact her upcoming [facility] Vitamin D deficiency 04/13/2023 Assessment & Plan (10/27/2024 2:34 PM EDT): On replacement stable Orders: ergocalciferol (DRISDOL) 1,250 mcg (50,000 unit) Oral Capsule; Take 1 Capsule by mouth once a week. CKD (chronic kidney disease) stage 2, GFR 60-89 ml/min 09/12/2022 Assessment & Plan (10/27/2024 2:34 PM EDT): On ISRAEL + farxiga stable Assessment & Plan (09/12/2022 6:59 AM EST): On farxiga, ISRA[place] Has been stable Recheck labs Avoiding NSAIDs Iron deficiency anemia 09/12/2022 Assessment & Plan (09/12/2022 11:26 AM EST): If her H/H is normal today can stop iron, takes irregularly Subdural hygroma 05/15/2021 Overview (05/15/2021): Sp repair by Neurosurgery at 02/27/21 -- Dr Festus Alan Psoriasis 05/15/2021 Assessment & Plan (09/12/2022 7:02 AM EST): On topicals stable Seborrhea 08/26/2019 Assessment & Plan (01/16/2022 3:15 PM EDT): Has some erythema at hair-line Irritant hand dermatitis 08/26/2019 Assessment & Plan (01/16/2022 3:14 PM EDT): Stable and doing well. Primary osteoarthritis involving multiple joints 04/09/2018 Assessment & Plan (09/12/2022 7:01 AM EST): Tylenol, no nsaids due to CKD and chronic AC Anxiety 04/09/2018 Assessment & Plan (09/12/2022 7:02 AM EST): Stable currently Carpal tunnel syndrome of right wrist 04/09/2018 Idiopathic chronic gout of multiple sites withou t tophus 04/09/2018 Assessment & Plan (09/12/2022 7:02 AM EST): No flares On allopurinol Check uric acid Assessment & Plan (07/26/2020 4:44 PM EST): Ok to cont allopurinol BID Chronic allergic rhinitis 12/17/2017 Assessment & Plan (10/27/2024 2:34 PM EDT): Stable No flares Assessment & Plan (09/12/2022 7:01 AM EST): stable 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 Assessment & Plan (12/28/2019 11:29 AM EDT): Doing well. Cerebrovascular accident, old 01/26/2017 Overview (01/26/2017): Dx by MRI 2016, multiple small embolic type insults Assessment & Plan (10/27/2024 2:34 PM EDT): On eliquis, statin, ISRAEL stable Orders: pravastatin (PRAVACHOL) 40 mg Oral Tablet; TAKE 1 TABLET BY MOUTH ONCE DAILY apixaban (ELIQUIS) 5 mg Oral Tablet; Take 1 Tablet by mouth 2 times daily. Assessment & Plan (09/12/2022 7:01 AM EST): On eliquis, statin, ISRAEL Assessment & Plan (01/16/2022 3:11 PM EDT): Stable, doing well On Eliquis Assessment & Plan (11/08/2020 2:19 PM EDT): No new problems. Assessment & Plan (12/28/2019 11:30 AM EDT): No new problems Glaucoma 12/18/2016 Hyperlipidemia associated with type 2 diabetes amber castro 12/13/2015 Assessment & Plan (10/27/2024 2:34 PM EDT): Tolerating statin well Tells me intolerant in past to higher intensity regimens Orders: pravastatin (PRAVACHOL) 40 mg Oral Tablet; TAKE 1 TABLET BY MOUTH ONCE DAILY Assessment & Plan (09/12/2022 7:00 AM EST): Tolerating statin well Assessment & Plan (11/08/2020 2:18 PM EDT): [place] been doing well on meds. Assessment & Plan (12/28/2019 11:29 AM EDT): Controlled on recent BW Doing well on med. Assessment & Plan (03/17/2019 1:21 PM EDT): Now on basaglar 16 units and will be titrating up to 19 today A1C: 10.3 today On diet by hx. FSBS still 200s-300s Continue to titrate insulin and follow diet Recheck in about 2weeks. Glucose Path. Bydureon BCise 2 mg weekly. Patient instructed by pharmacist in administration, effects, cautions. Dysarthria as late effect of cerebrovascular acc ident (CVA) 09/14/2015 Assessment & Plan (03/03/2019 2:01 PM EDT): Doing muc better. Atrial flutter (HCC) - dx 09/12/2015; paroxysmal 0 09/12/2015 Assessment & Plan (10/27/2024 2:34 PM EDT): Stable on BB, eliquis Orders: apixaban (ELIQUIS) 5 mg Oral Tablet; Take 1 Tablet by mouth 2 times daily. Assessment & Plan (09/12/2022 7:00 AM EST): Stable on BB, eliquis Assessment & Plan (01/16/2022 3:10 PM EDT): Doing well Seeing cardiology Remains on Eliquis with no bleeding or problems Assessment & Plan (11/08/2020 2:18 PM EDT): Doing well Seeing card No bleeding or problems on Eliquis. Assessment & Plan (12/28/2019 11:29 AM EDT): Doing well No problems or bleeding on Eliquis. Assessment & Plan (03/03/2019 2:01 PM EDT): Doing well by hx Morbid obesity due to excess calories 09/11/2015 Assessment & Plan (10/27/2024 2:34 PM EDT): Will be resuming mounjaro Cont good low carb diet, stay active as able Assessment & Plan (09/12/2022 7:00 AM EST): Adding mounjaro for DM Work on low calorie, low carb More exercise! Cigarette nicotine dependence without complicati on 09/11/2015 Assessment & Plan (03/30/2024 12:29 PM EDT): Advised to quit Rec low dose lung CT Asthma 09/15/2014 Assessment & Plan (10/27/2024 2:34 PM EDT): Stable No flares Orders: VENTOLIN HFA 90 mcg/actuation Inhl HFA Aerosol Inhaler; Inhale 1 Puff into the lungs every 6 hours as needed. for wheezing loratadine (CLARITIN) 10 mg Oral Tablet; Take 1 Tablet by mouth daily as needed. Assessment & Plan (09/12/2022 6:57 AM EST): Stable on flovent + alb prn Assessment & Plan (11/08/2020 2:21 PM EDT): Doing well on Flovent, but forgotten at times Has albuterol and uses prn only rarely Assessment & Plan (12/28/2019 11:31 AM EDT): Doing well by hx. Using albuterol rarely Fibromyalgia 07/13/2013 Overview (01/16/2022): Intolerant to Gabapentin and Lyrica Assessment & Plan (10/27/2024 2:34 PM EDT): Stable Orders: DULoxetine (CYMBALTA) 60 mg Oral Capsule, Delayed Release(E.C.); TAKE 1 CAPSULE BY MOUTH 2 TIMES DAILY Assessment & Plan (04/22/2024 2:16 PM EDT): Flared Ok for depomedrol 120 x 1 Cannot take nsaids due to concurrent AC Assessment & Plan (09/12/2022 6:57 AM EST): Stable on cymbalta + elavil Assessment & Plan (01/16/2022 3:12 PM EDT): On Cymbalta 60 BID Increased amitriptyline to 50 hs. Assessment & Plan (11/08/2020 2:24 PM EDT): On tyenol and Cymbalta Intolerant to Gabapentin and Lyrica. Will try low dose elavil Assessment & Plan (07/26/2020 4:44 PM EST): I suspect she is having wt gain from lyrica, certainly having fluid retention Will stop Ok to use tylenol 1000 mg up to QID as max dose for pain relief Already on cymbalta 60 BID Assessment & Plan (12/28/2019 11:30 AM EDT): Stable on Lyrica Still having some pain. LVH (left ventricular hypertrophy) 08/08/2011 Assessment & Plan (10/27/2024 2:34 PM EDT): Orders: torsemide (DEMADEX) 20 mg Oral Tablet; Take 1 Tablet by mouth daily. Assessment & Plan (01/16/2022 3:15 PM EDT): BP well controlled Seeing card as well. GERD (gastroesophageal reflux disease) 1 Assessment & Plan (10/27/2024 2:34 PM EDT): Stable currently Symptoms controlled Orders: lansoprazole (PREVACID) 30 mg Oral Capsule, Delayed Release(E.C.); Take 1 Capsule by mouth daily. Assessment & Plan (09/12/2022 6:57 AM EST): Stable currently Symptoms controlled Assessment & Plan (01/16/2022 3:13 PM EDT): Doing well, but needs PPI and H2 Assessment & Plan (11/08/2020 2:19 PM EDT): Doing well. But needing PPI and H2 susy Assessment & Plan (12/28/2019 11:29 AM EDT): Doing well. DDD (degenerative disc disease), cervical 2010 Type 2 diabetes mellitus wit h stage 2 chronic kidney disease, without long-term current use of insulin Assessment & Plan (10/27/2024 2:34 PM EDT): A1C 10.0 Intolerant to ozmepic Back on mounjaro, did better on this, 2.5 mg samples, 5 mg rx sent to pharmacy for month #2 Cont low carb diet, handout given Will have [facility] and pharmacist sign on for assist Discussed good foot care Eye exam UTD Orders: dapagliflozin propanediol (FARXIGA) 10 mg Oral Tablet; Take 1 Tablet by mouth daily. MICROALBUMIN/CREATININE RATIO URINE; Future POCT GLYCATED HEMOGLOBIN, TOTAL tirzepatide (MOUNJARO) 5 mg/0.5 mL SubQ Pen Injector; Subcutaneous (Inject under the skin) 5 mg once a week. Assessment & Plan (04/22/2024 2:16 PM EDT): Check micro IRIS today Orders: POCT URINE MICROALBUMIN Assessment & Plan (07/10/2023 3:31 PM EST): A1C up to 8.0 Will try for dexcom or Freestyle samson (CGM) Assessment & Plan (04/10/2023 1:29 PM EDT): A1C 8.0, up from 7.3 Has been working on diet Wt down 55 # overall, 31 # from last visit On 5 mg mounjaro, will try 7.5 mg Stopped her insulin completely, this may have been a miscommunication but ok to remain off for now Assessment & Plan (09/12/2022 11:23 AM EST): Given concurrent obesity and marginal control Stop januvia Start moujaro 2.5 mg weekly x 4 wks then 5 mg weekly as target dose Has also been off insulin, ok to hold for now Should take farxiga, hasnt started yet Eye exam utd Discussed good foot care Assessment & Plan (01/16/2022 3:23 PM EDT): Goal A1C: < 7.0 - Last A1c - 7.3 - 01/16/2022 - not at goal Compliance: - compliant with diet and medications Retinopathy Screening: Retinopathy Not Present - Last Eye Exam - 04/15/2019 - IRIS completed today Nephropathy Assessment: - currently on ISRAEL or ARB Foot Assessment: Last Foot Exam Date - 01/16/2022 - no ulcers or pre-ulcers Diet Advice: - discussed improving diet by reducing carbohydrates at today's visit ASA Therapy: - aspirin is contraindicated due to intolerance, patients risk of GI bleeding, 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 Assessment & Plan (12/28/2019 11:28 AM EDT): Well controlled A1C: 6.4 Resolved Problems Problem Noted Date Diagnosed Date Resolved Date Gastroesophageal reflux dise ase with esophagitis 11/08/2020 11/08/2020 Insulin use (long-term) in type 2 diabetes 08/26/2019 08/26/2019 Long-term insulin use 08/26/20192024 Assessment & Plan (12/28/2019 11:29 AM EDT): DM controlled. Trochanteric bursitis of both hips 04/09/2018 08/09/2019 Esophageal dysphagia 08/26/2017 020 Idiopathic chronic gout of f oot without tophus 01/23/2017 09/10/2022 Assessment & Plan (01/16/2022 3:14 PM EDT): Still having some joint pain Increased allopurinol to 300 daily Gastroesophageal reflux disease 05/16/2016 12/17/2017 Dysarthria 09/09/2015 09/12/2015 CVA (cerebral vascular accid ent) ([facility]); 09/2015; MRI + of multiple small infarcts 09/09/2015 01/26/2017 DM (diabetes mellitus), type 2, uncontrolled, periph vascular complic 07/19/2013 12/13/2015 Overview (09/10/2015): hgba1c = 6.8 04/2015 LVH (left ventricular hypertrophy) 08/08/2011 08/29/2011 Hyperlipidemia 09/04/2010 09/10/2022 Depression, major 09/04/2010 12/17/2017 Osteoarthritis, knee 09/04/2010 019 Leg swelling 09/04/2010 12/16/2012 Acid reflux 10/24/2009 03/24/2011 Cardiac arrhythmia 6 Facial droop 02/07/2016 Glucose intolerance (impaire d glucose tolerance) 05/13/2017 Encounters Date Type Department Care Team Description 01/12/2025 Refill [facility] [address] [place] [address] Domo Odonnell MD Medication Refill 12/15/2024 Refill [facility] [address] [place] [address] Domo Odonnell MD Medication Refill 12/12/2024 Patient Outreach [place] [address] [place] [address] Domo Odonnell MD Central Order Completion Outreach (Mammogram/LDCT) 11/22/2024 2:45 PM EDT Telemedicine [facility] [place] [address] [address] Valentina Arellano [facility] Type 2 diabetes mellitus with stage 2 chronic kidney disease, without long-term current use of insulin (HCC) (Primary Dx) 11/21/2024 Refill [place] [address] [place] [address] Domo Odonnell MD Medication Refill 11/15/2024 Telephone [place] [address] [place] [address] Domo Odonnell MD Other (med question) 11/02/2024 Patient Outreach [address] [place] [address] Rachael Swann, [facility] Medication Management (Clinical Manager Loss Prevention: 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 [phone]/) 10/28/2024 Results Follow-Up [place] [address] [place] [address] Domo Odonnell MD MICROALBUMIN/CREATIN INE RATIO URINE, CBC WITH DIFF, COMPREHENSIVE METABOLIC PANEL, Additional followed-up results: 3 10/27/2024 2:00 PM EDT Office Visit [facility] [address] [place] [address] Domo Odonnell MD Type 2 diabetes mellitus with stage 2 chronic kidney disease, without long-term current use of insulin (HCC) (Primary Dx); CKD (chronic kidney disease) stage 2, GFR 60-89 ml/min; Hyperlipidemia associated with type 2 diabetes mellitus (HCC); Morbid obesity due to excess calories (HCC); LVH (left ventricular hypertrophy); Typical atrial flutter (HCC); Cerebrovascular accident, old; Mild intermittent asthma without 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; Gastroesophageal reflux disease with esophagitis without hemorrhage; Vitamin D deficiency; Major depressive disorder, recurrent episode, mild; Fibromyalgia; Chronic allergic rhinitis 10/27/2024 Telephone [facility] [address] [place] [address] Domo Odonnell MD Prior Authorization (PA for Mounjaro 5mg pen Denied) from Last 3 Months Immunizations Immunization Administration Dates Next Due Hepatitis B (Recombinant), Adjuvanted 05/15/2021 ,08/26/2019 Influenza Vaccine Quadrivalent PF 04/10/2023 Influenza Virus Vaccine Quadrivalant, Flublok ,04/15/2019 Pneumococcal Polysaccharide 23 Valent 12/19/2017 Tdap 04/10/2023 Surgical History Surgery Date Site/Laterality Comments SALPINGO-OOPHORECTOMY UPPER GASTROINTESTINAL ENDOSCOPY 08/26/2017 N/A ESOPHAGOGASTRODUODENOSCOPY with araujo dilation COLONOSCOPY ; Surgeon: Ronny Bryan MD; Location: [facility]; Service: Endoscopy COLONOSCOPY 08/26/2017 N/A Surgeon: Ronny Bryan MD; Location: [facility]; Service: Endoscopy BRAIN SURGERY Medical History Medical History Date Comments Asthma 09/15/2014 Fibromyalgia Carpal tunnel syndrome Sleep apnea History of coronary angiogram CVA (cerebral infarction) Glaucoma 12/18/2016 Idiopathic chronic gout of foot without tophus Stroke (HCC) 2016 CKD (chronic kidney disease) stage 2, GFR 60-89 ml/min 09/12/2022 Family History Medical History Relation Name Comments Cancer Father Diabetes Father High Blood Pressure Father High Cholesterol Father Diabetes Mother High Blood Pressure Mother Relation Name Status Comments Father Mother Social History Tobacco Use Types Packs/Day Years Used Date Smoking Tobacco: Former Cigarettes 4 33.2 0 07/06/1982 - 09/09/2015 Smokeless Tobacco: Never Tobacco Cessation:Counseling Given: Not Answered Alcohol Use Standard Drinks/Week Comments No 0 (1 standard drink = 0.6 oz pur e alcohol) [facility] Utilities Answer Date Recorded In the [...] Date Recorded PHQ-2 Total Score 5 03/30/2024 [facility] - Occupational Stress [...] any time in the past 12 m [facility], were you homeless or living in a retirement (including now)? No 11/26/2023 Sexually Active Control Partners Comments Not Currently Comments No Sex and Gender Information Value Date Recorded Sex Assigned at Not on file Legal Sex Female 11:07 PM EDT Gender Identity Not on file Sexual Orientation Not on file Obstetrics History Last Filed Vital Signs Vital Sign Reading Time Taken Comments Blood Pressure 124/68 10/27/2024 1:56 PM EDT Pulse 74 10/27/2024 1:56 PM EDT Temperature 36.2 C (97.2 F) 10/27/2024 1:56 PM EDT Respiratory Rate 20 05/02/2020 5:45 PM EDT Oxygen Saturation 98% 10/27/2024 1:56 PM EDT Inhaled Oxygen Concentration - - Weight 119.7 kg (264 lb) 10/27/2024 1:56 PM EDT Height 157.5 cm (5' 2 ) 10/27/2024 1:56 PM EDT Body Mass Index 48.29 10/27/2024 1:56 PM EDT Plan of Treatment Upcoming Encounters Date Type Department Care Team (Late st Contact Info) Description 04/12/2025 12:40 PM EDT Office Visit [facility] [address] [place] [address] Betsy Garcia APRN [address] [address] Health Maintenance Due Date Last Done Comments HPV/Pap Cotest 1998 Cologuard 2013 FIT 2013 Sigmoidoscopy 2013 Virtual Colonography 2013 Low Dose Lung Cancer Screening 2018 Zoster (1 of 2) 2018 Pneumococcal Vaccine 50+ (2 of 2 - PCV) 12/19/2018 12/19/2017 Breast Cancer Screening 01/04/2019 01/05/20 18, 01/04/2018, 01/02/2017, Additional history exists COVID-19 Vaccine ( - season) 2024 Influenza Vaccine (#1) 2025 3, 05/15/2021, 04/15/2019, Additional history exists Annual Wellness Exam 03/30/2025 03/30/2024, 08/26/19 Hemoglobin A1c 04/28/2025 10/27/2024, 03/07, 03/30/2024, Additional history exists Kidney Health: eGFR 10/27/2025 10/27/2024, 03/30/2024, 04/10/2023, Additional history exists Kidney Health: uACR 10/27/2025 10/27/2024, Lipids 10/27/2025 10/27/2024, 10/05, 04/10/2023, Additional history exists Cervical Cancer Screening 04/08/2026 Pap Smear 04/08/2026 04/08/2023 Diabetic Eye Exam 04/22/2026 04/22/2024 Colon Cancer Screening 08/26/2027 Colonoscopy 08/26/2027 08/26/2017 DTaP/TDaP/Td (2 - Td or Tdap) 04/10/2033 04/10/2023 Hepatitis B Vaccine Completed 05/15/2021, 0 Meningococcal B Vaccine Aged Out No l onger eligible based on patient's age to complete this topic Goals Goal Patient Goal Type Associated Problems [...] 2:03 PM EDT) No Belinda Yeboah MA Procedures Procedure Name Priority Date/Time Associated Diagnosis Comments VITAMIN D 25 HYDROXY Routine 10/27/2024 2:35 PM EDT Vitamin D deficiency TSH REFLEX TO FT4 Routine 10/27/2024 2:3 5 PM EDT Hyperlipidemia associated with type 2 diabetes mellitus (HCC) LIPID PANEL REFLEX Routine 10/27/2024 2: 35 PM EDT Hyperlipidemia associated with type 2 diabetes mellitus (HCC) COMPREHENSIVE METABOLIC PANEL Routine 10/27/2024 2:35 PM EDT Hyperlipidemia associated with type 2 diabetes mellitus (HCC) CBC WITH DIFF Routine 10/27/2024 2:35 PM EDT Hyperlipidemia associated with type 2 diabetes mellitus (HCC) MICROALBUMIN/CREATININ E RATIO URINE Routine 10/27/2024 2:35 PM EDT Type 2 diabetes mellitus with stage 2 chronic kidney disease, without long-term current use of insulin (HCC) POCT GLYCATED HEMOGLOBIN, TOTAL Routine 10/27/2024 2:03 PM EDT Type 2 diabetes mellitus with stage 2 chronic kidney disease, without long-term current use of insulin (HCC) HM MAMMOGRAPHY Routine 01/04/2018 GMED EGD-COLONOSCOPY Routine 08/26/2017 8:30 AM EST from Last 3 Months or Most Recently Relevant to Health Maintenance Results * (ABNORMAL) LIPID PANEL REFLEX (10/27/2024 2:35 PM EDT) Cholesterol 155 <200 mg/dL 10/27/2024 8:40 PM EDT [facility] Comment: < 200 Desirable 200 - 239 Borderline High >= 240 High Triglyceride 186(H) <150 mg/dL 10/27/2024 8:40 PM EDT [facility] Comment: < 150 Normal 150 - 199 Borderline High 200 - 499 High >= 500 Very High HDL 35(L) >=40 mg/dL 10/27/2024 8:40 PM EDT [facility] Comment: > 60 Optimal 40 - 60 Acceptable < 40 Low LDL Calculated 88 <100 mg/dL 10/27/2024 8:40 PM EDT [facility] Comment: < 100 Optimal 100 - 129 Near or above optimal 130 - 159 Borderline High 160 - 189 High >= 190 Very High The National Institutes of Health (NIH) equation is used for all lipid panels that report calculated LDL (LDL-C). Non-HDL-C Calculated 120 <=129 mg/dL 10/27/2024 8:40 PM EDT [facility] [employer] [facility] Comment: <130 Desirable 130-159 Above Desirable 160-189 Borderline High 190-219 High >= 220 Very High Fasting Specimen? Yes None 025 8:40 PM EDT [facility] [employer] [facility] Blood VENOUS BLOOD / Unknown Venipuncture / Unknown 10/27/2024 2:35 PM EDT 10/27/2024 2:35 PM EDT Domo Odonnell MD CHEMISTRY ORDERABLES Final Re sult Performing Organization Address [facility] de Phone Number [facility] , [place] [address] * TSH REFLEX TO FT4 (10/27/2024 2:35 PM EDT) Pathologist [facility] TSH Reflex 2.500 0.270 - 4.200 mcIU/mL 10/27/2024 8:40 PM EDT [facility] [employer] [facility] Blood VENOUS BLOOD / Unknown Venipuncture / Unknown 10/27/2024 2:35 PM EDT 10/27/2024 2:35 PM EDT Narrative [facility] [employer] [facility] - 10/27/2024 8:40 PM EDT Ingestion of kareen doses of biotin (>5 mg/day) taken within 8 hours of drawing blood sample can interfere with this immunoassay test. Domo Odonnell MD CHEMISTRY ORDERABLES Final Re sult Performing Organization Address [facility] de Phone Number [facility] [address] [address] * VITAMIN D 25 HYDROXY (10/27/2024 2:35 PM EDT) Vit D 25 OH 59.2 30.0 - 150.0 ng/mL 10/27/2024 8:51 PM EDT [facility] [employer] [facility] Comment: Preferred: >= 30 ng/mL Insufficient: 21-29 ng/mL Deficient <= 20 ng/mL Possible Toxicity: >150 ng/mL Samples should not be taken from patients receiving therapy with high biotin doses (i.e. > 5 mg/day) until at least 8 hours following the last biotin administration. Blood VENOUS BLOOD / Unknown Venipuncture / Unknown 10/27/2024 2:35 PM EDT 10/27/2024 2:35 PM EDT Domo Odonnell MD CHEMISTRY ORDERABLES Final Re sult Performing Organization Address [facility] de Phone Number [facility] [address] [facility] [address] , [place] [address] * (ABNORMAL) MICROALBUMIN/CREATININE RATIO URINE (10/27/2024 2:35 PM EDT) Urine Microalb 46.9 mg/L 10/27/2024 9:50 PM EDT [facility] Urine Creatinine 113.0 mg/dL 10/27/2024 9:50 PM EDT [facility] Ur Microalb/Creat 42(H) 0 - 30 mg/g 10/27/2024 9:50 PM EDT [facility] Urine STRUCTURE OF URINARY TRACT PROPER / Unknown 10/27/2024 2:35 PM EDT 10/27/2024 2:35 PM EDT Domo Odonnell MD URINE ORDERABLES Final Result Performing Organization Address [facility] Co de Phone Number [facility] [address] [facility] , [place] [address] * (ABNORMAL) CBC WITH DIFF (10/27/2024 2:35 PM EDT) WBC 14.7(H) 3.7 - 10.3 x10(3)/mcL 10/27/2024 8:36 PM EDT [facility] RBC 4.68 3.90 - 5.20 x10(6)/mcL 10/27/2024 8:36 PM EDT [facility] Hgb 13.4 11.2 - 15.7 g/dL 10/27/2024 8:36 PM EDT [facility] Hct 43.4 34.0 - 45.0 % 10/27/2024 8:36 PM EDT [facility] MCV 92.7 80.0 - 100.0 fL 10/27/2024 8:36 PM EDT [facility] MCH 28.6 26.0 - 34.0 pg 10/27/2024 8:36 PM EDT [facility] MCHC 30.9 30.7 - 35.5 g/dL 10/27/2024 8:36 PM EDT [facility] RDW 14.1 <=14.9 % 10/27/2024 8:36 PM EDT [facility] Platelet 385(H) 155 - 369 x10(3)/mcL 10/27/2024 8:36 PM EDT [facility] MPV 10.6 8.8 - 12.5 fL 10/27/2024 8:36 PM EDT [facility] Neut Percent 65.0 % 10/27/2024 8:36 PM EDT [facility] Comment:Neutrophils equals s egs plus bands Imm Gran% 0.4 % 10/27/2024 8:36 PM EDT [facility] Comment:Automated count of m etamyelocytes, myelocytes and promyelocytes. Lymph Percent 29.0 % 10/27/2024 8:36 PM EDT [facility] [place] Percent 4.0 % 10/27/2024 8:36 PM EDT [facility] Eos Percent 0.9 % 10/27/2024 8:36 PM EDT [facility] Baso Percent 0.7 % 10/27/2024 8:36 PM EDT [facility] Neut # 9.6(H) 1.6 - 6.1 x10(3)/mcL 10/27/2024 8:36 PM EDT [facility] Comment:Neutrophils equals s egs plus bands IMMGRAN# 0.1 0.0 - 0.1 x10(3)/mcL 10/27/2024 8:36 PM EDT [facility] Comment:Automated count of m etamyelocytes, myelocytes and promyelocytes. An absolute IG <0.1 is reported as 0.0. Lymph # 4.3(H) 1.2 - 3.9 x10(3)/mcL 10/27/2024 8:36 PM EDT [facility] [place] # 0.6 0.3 - 0.9 x10(3)/mcL 10/27/2024 8:36 PM EDT [facility] Eos# 0.1 0.0 - 0.5 x10(3)/mcL 10/27/2024 8:36 PM EDT [facility] Baso # 0.1 0.0 - 0.1 x10(3)/mcL 10/27/2024 8:36 PM EDT [facility] Blood VENOUS BLOOD / Unknown Venipuncture / Unknown 10/27/2024 2:35 PM EDT 10/27/2024 2:35 PM EDT us Domo Odonnell MD HEMATOLOGY ORDERABLES Final R esult [facility] [address] [facility] , [place] [address] * (ABNORMAL) COMPREHENSIVE METABOLIC PANEL (10/27/2024 2:35 PM EDT) Sodium 136 136 - 145 mmol/L 10/27/2024 8:40 PM EDT [facility] Potassium 4.6 3.5 - 5.0 mmol/L 10/27/2024 8:40 PM EDT [facility] Chloride 101 98 - 107 mmol/L 10/27/2024 8:40 PM EDT [facility] Total CO2 20(L) 22 - 29 mmol/L 10/27/2024 8:40 PM EDT [facility] Anion Gap 15 7 - 16 mmol/L 10/27/2024 8:40 PM EDT [facility] Calcium 9.8 8.6 - 10.4 mg/dL 10/27/2024 8:40 PM EDT [facility] Glucose Lvl 199(H) 70 - 99 mg/dL 10/27/2024 8:40 PM EDT [facility] BUN 8 6 - 20 mg/dL 10/27/2024 8:40 PM EDT [facility] Creatinine 0.97 0.51 - 1.30 mg/dL 10/27/2024 8:40 PM EDT [facility], [facility] Albumin 4.1 3.5 - 5.2 gm/dL 10/27/2024 8:40 PM EDT [facility], [facility] Total Protein 7.4 6.4 - 8.3 gm/dL 10/27/2024 8:40 PM EDT [facility] Bili Total 0.4 0.2 - 1.3 mg/dL 10/27/2024 8:40 PM EDT [facility] ALT 9 <=41 U/L 10/27/2024 8:40 PM EDT [facility] AST 22 <=40 U/L 10/27/2024 8:40 PM EDT [facility] Alk Phos 70 36 - 123 U/L 10/27/2024 8:40 PM EDT [facility] eGFR (CKD-EPIcr 2020) 68 >=60 mL/min/1.7 3 m2 10/27/2024 8:40 PM EDT [facility] Comment:Estimated GFR was ca lculated using the CKD-EPIcr (2020) equation refit without race. The equation is recommended by the National Kidney Foundation - [place] [employer] of Nephrology Task Force. Blood VENOUS BLOOD / Unknown Venipuncture / Unknown 10/27/2024 2:35 PM EDT 10/27/2024 2:35 PM EDT us Domo Odonnell MD CHEMISTRY ORDERABLES Final Re sult [facility] [address] [facility] , [place] [address] * (ABNORMAL) POCT GLYCATED HEMOGLOBIN, TOTAL (10/27/2024 2:03 PM EDT) Hemoglobin A1C 10.0(A) 4 - 6 % SEP OFFICE Lot Number [id number] SEP OFFICE Expiration Date [id number] SEP OFFICE SeriAl # SEP OFFICE 10/27/2024 2:03 PM EDT Domo Odonnell MD POINT OF CARE TEST ORDERABLES Final Result SEP OFFICE * HM MAMMOGRAPHY (01/04/2018) us Historical Provider HEALTH MAINTENANCE Final Res ult SEP OFFICE * [facility]ED EGD-COLONOSCOPY (08/26/2017 8:30 AM EST) 08/26/2017 8:30 AM EST Impressions [facility] - 08/26/2017 9:03 AM EST Plan: Colonoscopy in 5 years This section is an excerpt of the full report. Ronny Bryan MD GI PROCEDURE ORDERABLES Fin al Result Performing Organization Address City/[facility]/ZIP Co de Phone Number [facility] [address] [place] [address] from Last 3 Months or Most Recently Relevant to Health Maintenance Insurance [facility] [id number] [facility] PROGRESSIVE AUTO INS AA [facility] [id number] MDR PROGRESSIVE [employer] INS AA [employer] AA Advance Directives For more information, please contact: [phone] Documents on File Type Date Recorded Patient Bioinformatics Technician Expl anation Advance Directives/DNR 02/13/2010 6:59 AM * Full Code (Latest Code Status on File) Date Activated Date Inactivated Comments 09/10/2015 10:04 AM 09/13/2015 8:00 PM Care Teams Accounts Receivable Coordinator Relationship Specialty Start Date End Date Domo Odonnell MD [address] [place] [address] PCP - General Family Medicine 12/06/12 Lali Hyde APRN [address] [place] [address] Nurse Practitioner 05/16/16
--- OUTSIDE RECORDS SUMMARY | 2025-01-20 14:05 | XMS_ITS | Encounter Summary ---
Author Organization [place] [address] Care Team Providers Care Career Education Teacher Name Role Phone Domo Odonnell MD Primary Care Provider [phone] Lali Hyde SCREEN PRINTING PASTER Unavailable [phone] Reason for Visit * Reason Comments Medication Refill Encounter Details Date Type Department Care Team (Late st Contact Info) Description 01/12/2025 Refill SEP [facility] [address] [facility] [place] [address] Domo Odonnell MD [address] [place] [address] Medication Refill Social History Tobacco Use Types Packs/Day Years Used Date Smoking Tobacco: Former Cigarettes 4 33.2 0 07/06/1982 - 09/09/2015 Smokeless Tobacco: Never Alcohol Use Standard Drinks/Week Comments No 0 (1 standard drink = 0.6 oz pur e alcohol) [facility] Utilities Answer Date Recorded In the past 12 months has [employer] electric, gas, oil, or water company threatened to shut off services in your home? Yes 11/26/2023 Overall Financial Resource Strain (CARDIA) Francise r Date Recorded How hard is it for you to pa y for the very basics like food, housing, medical care, and heating? Not hard at all 11/26/2023 PHQ-2 Answer Date Recorded PHQ-2 Total Score 5 03/30/2024 [facility] [place] [facility] Occupat ional Health - Occupational Stress [...] any time in the past 12 m [facility], were you homeless or living in a senior living (including now)? No 11/26/2023 Sexually Active Control [...] Author No 01/16/2022 2:30 PM EDT Ron Snigh MA * Is the person blind or [...] Refills Last Filled Start Date End Date amitriptyline (ELAVIL) 50 mg Oral TabletIndications:F ibromyalgia TAKE 1 TABLET BY MOUTH NIGHTLY. 30 Tablet 2 01/13/2025 DEXCOM G7 SENSOR [facility] DeviceIndications:T ype 2 diabetes mellitus with stage 2 chronic kidney disease, with long-term current use of insulin (HCC) 1 EACH BY [facility]NON-DR UG; COMBO ROUTE) ROUTE EVERY 10 DAYS. 3 Each 01/13/2025 documented in this encounter Miscellaneous Notes * Telephone Encounter - Sarah Abdul CPhT - 01/13/2025 2:28 PM EDT DEXCOM G7 SENSOR There is no CRS protocol for this medication. amitriptyline Future Visit: None Last Assessed Visit: 10/28/2024 for Fibromyalgia Follow-Up: 04/29/2025 All protocols passed. Refills approved and sent to requesting pharmacy. Routed to [facility] if applicable. documented in this encounter Plan of Treatment Upcoming Encounters Date Type Department Care Team (Late st Contact Info) Description 04/12/2025 12:40 PM EDT Office Visit SEP [facility] [place] [address] [place] [address] Radha BetsyJANET [address] [address] documented as of this encounter [...] with long-term current use of insulin (HCC) Fibromyalgia Mylagia and myositis, unspecified documented in this encounter Discontinued Medications Medication Sig Discontinue Reason Start Date End Da te amitriptyline (ELAVIL) 50 mg Oral TabletIndications:Fibrom yalgia TAKE 1 TABLET BY MOUTH NIGHTLY. 08/31/2024 01/13/2025 DEXCOM G7 SENSOR Mis DeviceIndications:Type 2 diabetes mellitus with stage 2 chronic kidney disease, with long-term current use of insulin (HCC) 1 EACH BY [facility].(NON-DRUG; COMBO ROUTE) ROUTE EVERY 10 DAYS. 12/16/2024 01/13/2025 documented as of this encounter Additional Health Concerns Assessment Noted Time PHQ-9 Depression Total Score: 17 03/30/ 024 1:00 PM EDT PHQ-2 Depression Total Score: 5 03/30/20 24 1:00 PM EDT documented as of this encounter Care Teams Career Education Teacher Relationship Specialty Start Date End Date Domo Odonnell MD [address] [place] [address] PCP - General Family Medicine 12/06/12 Lali Hyde APRN [address] [place] [address] Nurse Practitioner 05/16/16 documented as of this encounter
--- NOTE | 2025-01-20 14:30 | US_ITS ---
PROCEDURE: US TRANSVAGINAL CLINICAL INDICATION: pelvic pain COMPARISON: US US TRANSVAGINAL from 07/08/2021 FINDINGS: Transvaginal sonographic images of the pelvis were obtained. UTERUS: 7.4cm x 4.3cmx 4.0cm anteverted with a combined endometrial thickness of 5.8mm. There appears to be a fibroid anteriorly measuring 1.9 cm x 1.5 cm. There are small nabothian cysts in the cervix. LEFT OVARY: Surgically absent RIGHT OVARY: 3.8 cmx 2.2cmx1.8 cm with a volume of 7.9ml. Right ovary is seen and appears normal. Doppler flow is not seen to the right ovary. There is no fluid in the cul-de-sac. IMPRESSION: 1. Anteverted uterus normal in shape and size. The endometrium is slightly thickened at the fundus measuring 5.8 mm. 2. There appears to be an anterior fibroid measuring 1.9 cm x 1.5 cm. 3. The left ovary is surgically absent. The right ovary is normal in size. We did not see any flow to the right ovary. The patient did not describe any pain throughout the examination. 4. No fluid in the cul-de-sac. Dictated by: George Cruz MD 01/21/2025 07:09 George Cruz MD in OV 01/21/2025 07:09
== END 2025-01-20 23:59 | disposition home or self-care (01) ==
LOC: RAD 14:02
PROVIDERS: PCP Family Medicine; Visit Provider Obstetrics & Gynecology
DX: Z12.31 Encounter for screening mammogram for malignant neoplasm of breast (principal); D25.9 Leiomyoma of uterus, unspecified; R92.313 Mammographic fatty tissue density, bilateral breasts; R93.89 Abnormal findings on diagnostic imaging of other specified body structures; R10.2 Pelvic and perineal pain; Z90.721 Acquired absence of ovaries, unilateral
CPT/HCPCS: 76830; 77063; 77067

== ENCOUNTER 2025-02-08 10:39 | Outpatient (CLI) | payer MEDICAID, SELFPAY ==
--- OUTSIDE RECORDS SUMMARY | 2025-02-08 10:44 | XMS_ITS | Encounter Summary ---
Author Organization [place] [address] Care Team Providers Care Looper Operator Name Role Phone Domo Odonnell MD Primary Care Provider [phone] Lali Hyde COMPOSITION WEATHERBOARD APPLIER Unavailable [phone] Reason for Visit * Reason Onset Date Comments Results 10/28/2024 Labs 10/27/24 Encounter Details Date Type Department Care Team (Latest Contact Info) Description 10/28/2024 Results Follow-Up [facility] [address] [facility] [place] [address] Domo Odonnell MD [address] [place] [address] MICROALBUMIN/CREATINI NE RATIO URINE, CBC WITH DIFF, COMPREHENSIVE METABOLIC PANEL, Additional followed-up results: 3 Social History Tobacco Use Types Packs/Day Years Used Date Smoking Tobacco: Former Cigarettes 4 33.2 0 07/06/1982 - 09/09/2015 Smokeless Tobacco: Never Alcohol Use Standard Drinks/Week Comments No 0 (1 standard drink = 0.6 oz pur e alcohol) [facility] Utilities Answer Date Recorded In the [...] Date Recorded PHQ-2 Total Score 5 03/30/2024 [facility] - Occupational Stress Questionnaire Answer Date [...] any time in the past [address] [facility], were you homeless or living in a usp (including now)? No 11/26/2023 Sexually Active Control [...] 12:40 PM EDT Office Visit [facility] [place] [address] [place] [address] Betsy Garcia APRN [address] [facility] [address] [place] [address] documented as of this encounter [...] documented as of this encounter Care Teams Looper Operator Relationship Specialty Start Date End Date Domo Odonnell MD [address] [place] [address] PCP - General Family Medicine 12/06/12 Lali Hyde APRN [address] [place] [address] Nurse Practitioner 05/16/16 documented as of this encounter
--- OUTSIDE RECORDS SUMMARY | 2025-02-08 10:44 | XMS_ITS | Encounter Summary ---
Author Organization Healthcare Address [address] [place] [address] Care Team Providers Care Certified Dietary Manager Name Role Phone Domo Odonnell MD Primary Care Provider [phone] Festus Alan MD Unavailable [phone] Festus Alan MD Unavailable [phone] Encounter Details Date Type Department Care Team (Late st Contact Info) Description 11/27/2020 [facility] [address] [place] [address] Festus Alan MD [address] [place] [address] Social History Tobacco Use Types [...] on filedocumented in this encounter Care Teams Certified Dietary Manager Relationship Specialty Start Date End Date Domo Odonnell MD [address] [place] [address] PCP - General 11/16/20 Festus Alan MD [address] [place] [address] Surgeon Neurosurgery 01/25/21 Festus Alan MD [address] [place] [address] Surgeon Neurosurgery 03/15/21 documented as of this encounter
--- OUTSIDE RECORDS SUMMARY | 2025-02-08 10:44 | XMS_ITS | Encounter Summary ---
Author Organization [place] [address] Care Team Providers Care Checkout Operator Name Role Phone Domo Odonnell MD Primary Care Provider [phone] Lali Hyde DYE RANGE OPERATOR Unavailable [phone] Reason for Visit * Reason Onset Date Comments Central Order Completion Outreach 12/12/2024 Mammogram/LDCT Encounter Details Date Type Department Care Team (Late st Contact Info) Description 12/12/2024 Patient Outreach SEP [facility] [address] [place] [address] Domo Odonnell MD [address] [place] [address] Central Order Completion Outreach (Mammogram/LDCT) Social History Tobacco Use Types Packs/Day Years Used Date Smoking Tobacco: Former Cigarettes 4 33.2 0 07/06/1982 - 09/09/2015 Smokeless Tobacco: Never Alcohol Use Standard Drinks/Week Comments No 0 (1 standard drink = 0.6 oz pur e alcohol) [facility] Utilities Answer Date Recorded In the [...] Date Recorded PHQ-2 Total Score 5 03/30/2024 [facility] - Occupational Stress Questionnaire Answer Date [...] any time in the past 12 m [facility], were you homeless or living in [...] 01/16/2022 2:30 PM EDT Ron Snigh MA documented in this encounter Progress Notes * Annetta Andrade RN - 12/12/2024 2:54 PM EDT SEP Order Completion Outcome Tracking Contact Attempt:: Final Mammogram Outcome:: Patient Declined LDCT Outcome:: Patient Declined Patient declined reason:: Patient Availability (Pt's is in the hospital following a MD. Pt will call back.) documented in this encounter Plan of Treatment Upcoming Encounters Date Type Department Care Team (Late st Contact Info) Description 04/12/2025 12:40 PM EDT Office Visit SEP [facility] [place] [address] [place] [address] Betsy Garcia APRN [address] [address] documented as of this encounter [...] documented as of this encounter Care Teams Checkout Operator Relationship Specialty Start Date End Date Domo Odonnell MD [address] [place] [address] PCP - General Family Medicine 12/06/12 Lali Hyde APRN [address] [place] [address] Nurse Practitioner 05/16/16 documented as of this encounter
--- OUTSIDE RECORDS SUMMARY | 2025-02-08 10:45 | XMS_ITS | Clinical Summary ---
Author Organization [facility] Address [address] [place] [address] Care Team Providers Care Research Mechanic Name Role Phone Domo Odonnell MD Primary Care Provider [phone] Festus Alan MD Unavailable [phone] Festus Alan MD Unavailable [phone] Allergies Active Allergy Reactions Criticality Noted [...] 07/26/19 21 Active Blood Glucose Monitoring Suppl (AnergisStyle glucose monitoring) kit Use as directed to check blood sugar 07/24/19 18 Active fluorouracil (Efudex) 5 % cream Apply topically twice a day. 03/11/20 19 Active glucose blood (AOBiomeuch Ultra) test strip USE TO TEST BLOOD [...] tablet 03/04/20 Active Lancets (OneTouch Delica Plus [id number]) misc SUBCUTANEOUS (INJECT UNDER THE SKIN) 1 [...] (2 of 2 - PCV) 12/19/2018 12/19/2017 [id number] Vaccine (1 - season) 2024 UKY-Influenza Vaccine [...] this topic Medical Devices Implanted Type Area Educational Programming Director Device Identifier Shelf Expiration Date Model / Serial / Lot Closure Device Vip Angioseal 8 Fr - [id number] Implanted:Qty: 1 on 02/27/2021 by Festus Alan MD at [facility] [employer]-[id number] 09/02/2021 [id number] / / [id number] Insurance [facility] [place] [address] Care Teams Research Mechanic Relationship Specialty Start Date End Date Domo Odonnell MD [address] [place] [address] PCP - General 11/16/20 Festus Alan MD [address] [place] [address] Surgeon Neurosurgery 01/25/21 Festus Alan MD [address] [place] [address] Surgeon Neurosurgery 03/15/21
--- OUTSIDE RECORDS SUMMARY | 2025-02-08 10:45 | XMS_ITS | Encounter Summary ---
Author Organization [place] [address] Care Team Providers Care Getterer Name Role Phone Domo Odonnell MD Primary Care Provider [phone] Lali Hyde CLOTH DYEING RANGE TENDER Unavailable [phone] Encounter Details Date Type Department Care Team (Late st Contact Info) Description 01/26/2025 Abstract SEP [facility] [address] [facility] [place] [address] Domo Odonnell MD [address] [place] [address] Social History Tobacco Use Types Packs/Day Years Used Date Smoking Tobacco: Former Cigarettes 4 33.2 0 07/06/1982 - 09/09/2015 Smokeless Tobacco: Never Alcohol Use Standard Drinks/Week Comments No 0 (1 standard drink = 0.6 oz pur e alcohol) [facility] Utilities Answer Date Recorded In the past 12 months has [employer] electric, gas, oil, or water company threatened to shut off services in your home? Yes 11/26/2023 Overall Financial Resource Strain (CARDIA) Shaina babb Date Recorded How hard is it for you to pa y for the very basics like food, housing, medical care, and heating? Not hard at all 11/26/2023 PHQ-2 Answer Date Recorded PHQ-2 Total Score 5 03/30/2024 [facility] [place] of Occupat ional Health - Occupational Stress [...] any time in the past 12 m [facility], were you homeless or living in a care home (including now)? No 11/26/2023 Sexually Active [...] Assessment Author No 01/16/2022 2:30 PM EDT Mychal Singh MA * Is the person blind or does he/she have serious difficulty seeing even when wearing glasses? Answer Date of Assessment Author No 01/16/2022 2:30 PM EDT Mychal Singh MA * Does this person have serious difficulty walking or climbing stairs? Answer Date of Assessment Author No 01/16/2022 2:30 PM EDT Mychal Singh MA * Does this person have difficulty dressing or bathing? Answer Date of Assessment Author No 01/16/2022 2:30 PM EDT Mychal Singh MA * Because of a physical, mental or emotional condition, does this person have difficulty doing errands alone such as visiting a doctor's office or shopping? Answer Date of Assessment Author No 01/16/2022 2:30 PM EDT Mychal Singh MA documented as of this encounter Mental Status * Because of a physical, mental or emotional condition, does this person have serious difficulty concentrating, remembering or making decisions? Answer Entry Date Author No 01/16/2022 2:30 PM EDT Mychal Singh MA documented in this encounter Plan of Treatment Upcoming Encounters Date Type Department Care Team (Late st Contact Info) Description 04/12/2025 12:40 PM EDT Office Visit [facility]P [facility] [address] [address] Betsy Garcia APRN [address] [address] documented as of this encounter [...] Yeboah MA documented as of this encounter Procedures Procedure Name Priority Date/Time Associated Diagnosis Comments MAMMOGRAPHY Routine 01/20/2025 documented in this encounter Results * MAMMOGRAPHY (01/20/2025) 01/20/2025 us Historical Provider HEALTH MAINTENANCE Final Res ult SEP OFFICE documented in this encounter Visit Diagnoses Not on filedocumented in this encounter Additional Health Concerns Assessment Noted Time PHQ-9 Depression Total Score: 17 024 1:00 PM EDT PHQ-2 Depression Total Score: 5 03/30/20 24 1:00 PM EDT documented as of this encounter Care Teams Getterer Relationship Specialty Start Date End Date Domo Odonnell MD [address] [place] [address] PCP - General Family Medicine 12/06/12 Lali Hyde APRN [address] [place] [address] Nurse Practitioner 05/16/16 documented as of this encounter
--- OUTSIDE RECORDS SUMMARY | 2025-02-08 10:45 | XMS_ITS | Encounter Summary ---
Author Organization [place] [address] Care Team Providers Care Binder Stripper Machine Name Role Phone Domo Odonnell MD Primary Care Provider [phone] Lali Hyde QUALITY ANALYST/TECHNICAL WRITER Unavailable [phone] Reason for Visit * Reason Comments Medication Refill Encounter Details Date Type Department Care Team (Late st Contact Info) Description 12/15/2024 Refill SEP [facility] [address] [facility] [place] [address] Domo Odonnell MD [address] [place] [address] Medication Refill Social History Tobacco Use Types Packs/Day Years Used Date Smoking Tobacco: Former Cigarettes 4 33.2 0 07/06/1982 - 09/09/2015 Smokeless Tobacco: Never Alcohol Use Standard Drinks/Week Comments No 0 (1 standard drink = 0.6 oz pur e alcohol) [facility] Utilities Answer Date Recorded In the past 12 months has [employer] electric, gas, oil, or water company threatened to shut off services in your home? Yes 11/26/2023 Overall Financial Resource Strain (CARDIA) Francise r Date Recorded How hard is it for you to pa y for the very basics like food, housing, medical care, and heating? Not hard at all 11/26/2023 PHQ-2 Answer Date Recorded PHQ-2 Total Score 5 03/30/2024 [facility] [place] of Occupat ional Health - Occupational Stress [...] any time in the past 12 m [facility], were you homeless or living in a [...] 18 g 2 12/16/2024 DEXCOM G7 SENSOR [facility] DeviceIndications: Type 2 diabetes mellitus with stage 2 chronic kidney disease, with long-term current use of insulin (HCC) 1 EACH BY [facility]NON-DRUG ; COMBO ROUTE) ROUTE EVERY 10 DAYS. 3 Each 12/16/2024 5 documented in this encounter Miscellaneous Notes * Telephone Encounter - Leticia Harrell, [facility] - 12/16/2024 9:08 AM EDT Dexcom Sensor There is no CRS protocol for this medication. Ergocalciferol 1250 There is no CRS protocol for this medication. Ventolin Future Visit: None Last Assessed Visit: 10/27/24 Follow-Up Date: 04/28/25 All protocols passed. Refills approved and sent to requesting pharmacy. Routed to [facility] if applicable. documented in this encounter Plan of Treatment Upcoming Encounters Date Type Department Care Team (Late st Contact Info) Description 04/12/2025 12:40 PM EDT Office Visit [facility]P [facility] [place] [address] [place] [address] Betsy Garcia, JANET [address] [address] documented as of this encounter [...] for wheezing 10/27/2024 12/16/2024 DEXCOM G7 SENSOR [facility] DeviceIndications:Type 2 diabetes mellitus with stage 2 chronic kidney disease, with long-term current use of insulin (HCC) 1 EACH BY [facility].(NON-DRUG; COMBO ROUTE) ROUTE EVERY [...] documented as of this encounter Care Teams Binder Stripper Machine Relationship Specialty Start Date End Date Domo Odonnell MD [address] [place] [address] PCP - General Family Medicine 12/06/12 Lali Hyde APRN [address] [place] [address] Nurse Practitioner 05/16/16 documented as of this encounter
--- OUTSIDE RECORDS SUMMARY | 2025-02-08 10:45 | XMS_ITS | Clinical Summary ---
Author Organization [facility] Address [address] [place] [address] Phone Care Team Providers Care Science Manager Name Role Phone Domo Odonnell MD Primary Care Provider [phone] Lali Hyde APRN Unavailable [phone] Allergies Active Allergy Reactions Criticality Noted [...] fluid retention Semaglutide Other (See Comments) 10/27/2024 [place] poorly on this. Did much better on [...] lancets (ONETOUCH DELICA PLUS LANCET) 30 gauge [facility] MiscIndications:T ype 2 diabetes mellitus with stage 2 chronic kidney disease, unspecified whether custodial insulin use (HCC) 1 EACH BY [facility]NON-DRUG; COMBO ROUTE) ROUTE DAILY. 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 90 Tablet 1 025 Active apixaban (ELIQUIS) 5 mg Oral TabletIndications :Typical atrial flutter (HCC),Cerebrovasc ular accident, old Take 1 Tablet by mouth 2 times daily. 180 Tablet 1 025 Active tirzepatide (MOUNJARO) 5 mg/0.5 mL SubQ Pen InjectorIndicatio ns:Type 2 diabetes mellitus with stage 2 chronic kidney disease, without long-term current use of insulin ([facility]) Subcutaneous (Inject under the skin) 5 mg once a week. 2 mL 5 025 Active dulaglutide (TRULICITY) 0.75 mg/0.5 mL SubQ Pen Injector Subcutaneous (Inject under the skin) 0.5 mL once a week. 2 mL 2 025 Active metFORMIN (GLUCOPHAGE) 1,000 mg Oral TabletIndications :Type 2 diabetes mellitus with stage 2 chronic kidney disease, with long-term current use of insulin ([facility]) TAKE 1 TABLET BY MOUTH 2 TIMES [...] use of insulin (HCC) 1 EACH BY [facility].(NON-DRUG; COMBO ROUTE) ROUTE EVERY 10 DAYS. 3 [...] disease, with long-term current use of insulin ([facility]) 1 EACH BY [facility].(NON-DRUG; COMBO ROUTE) ROUTE EVERY 10 DAYS. 3 Each 025 2024 Discontinued Active Problems Patient Care Coordination No te Formatting of this note migh t be different from the original. [facility] audit completed by Purnima Caballero RN on [...] patients risk of GI bleeding, risk of PSYCHOLOGY DEPARTMENT CHAIR bleeding or other medication / medical condition [...] 09/09/2015 09/12/2015 CVA (cerebral vascular accid ent) ([facility]); 09/2015; MRI + of multiple small infarcts [...] Encounters Date Type Department Care Team Description 01/26/2025 Abstract [facility]P [facility] [address] [place] [address] Domo Odonnell MD 01/12/2025 Refill SEP [facility] [address] [place] [address] Domo Odonnell MD Medication Refill 12/15/2024 Refill SEP [facility] [address] [place] [address] Domo Odonnell MD Medication Refill 12/12/2024 Patient Outreach SEP [facility] [address] [place] [address] Domo Odonnell MD Central Order Completion Outreach (Mammogram/LDCT) 11/22/2024 2:45 PM EDT Telemedicine [facility] [address] [place] [address] Valentina Arellano, [facility] Type 2 diabetes mellitus with stage 2 chronic kidney disease, without long-term current use of insulin (HCC) (Primary Dx) 11/21/2024 Refill SEP [facility] [address] [place] [address] Domo Odonnell MD Medication Refill 11/15/2024 Telephone SEP [facility] [address] [place] [address] Domo Odonnell MD Other (med question) from Last 3 Months Immunizations Immunization Administration [...] drink = 0.6 oz pur e alcohol) [facility] Utilities Answer Date Recorded In the past 12 months has [facility] [employer], gas, oil, or water [employer] threatened to shut off services in your home? Yes 11/26/2023 Overall Financial Resource Strain (CARDIA) Answe r Date Recorded How hard is it for you to pa y for the very basics like food, housing, medical care, and heating? Not hard at all 11/26/2023 PHQ-2 Answer Date Recorded PHQ-2 Total Score 5 03/30/2024 [facility] [place] of Occupat ional Health - Occupational Stress [...] any time in the past 12 m [facility], were you homeless or living in a assisted (including now)? No 11/26/2023 Sexually Active Control [...] 12:40 PM EDT Office Visit [facility]P [facility] [address] [place] [address] Betsy Garcia, JANET [address] [address] Health Maintenance Due Date Last Done Comments HPV/Pap Cotest 1998 Cologuard 2013 FIT 2013 Sigmoidoscopy 2013 Virtual Colonography 2013 Low Dose Lung Cancer Screening 2018 Zoster (1 of 2) 2018 Pneumococcal Vaccine 50+ (2 of 2 - PCV) 12/19/2018 12/19/2017 COVID-19 Vaccine (1 - season) 2024 Influenza Vaccine (#1) 2025 , 05/15/2021, 04/15/2019, Additional history exists Annual Wellness Exam 03/30/2025 03/30/2024, 08/26/19 20 Hemoglobin A1c 04/28/2025 10/27/2024, 03/07, 03/30/2024, Additional history exists Kidney Health: eGFR 10/27/2025 10/27/2024, 03/30/2024, 04/10/2023, Additional history exists Kidney Health: uACR 10/27/2025 10/27/2024, Lipids 10/27/2025 10/27/2024, 10/05, 04/10/2023, Additional history exists Breast Cancer Screening 01/20/2026 01/21/20, 01/04/2018, 01/04/2018, Additional history exists Cervical Cancer Screening 04/08/2026 [...] Date/Time Associated Diagnosis Comments MAMMOGRAPHY Routine 01/20/2025 MICROALBUMIN/CREATININ E RATIO URINE Routine 10/27/2024 2:35 PM EDT Type 2 diabetes mellitus with stage 2 chronic kidney disease, without long-term current use of insulin (HCC) COMPREHENSIVE METABOLIC PANEL Routine 10/27/2024 2:35 PM EDT Hyperlipidemia associated with type 2 diabetes mellitus (HCC) LIPID PANEL REFLEX Routine 10/27/2024 2: 35 PM EDT Hyperlipidemia associated with type 2 diabetes mellitus (HCC) POCT GLYCATED HEMOGLOBIN, TOTAL Routine 10/27/2024 2:03 PM EDT Type 2 diabetes mellitus with stage 2 chronic kidney disease, without long-term current use of insulin (HCC) [facility] EGD-COLONOSCOPY Routine 08/26/2017 8:30 AM EST from Last 3 Months or Most Recently Relevant to Health Maintenance Results * MAMMOGRAPHY (01/20/2025) 01/20/2025 us Historical Provider HEALTH MAINTENANCE Final Res ult [facility] * (ABNORMAL) LIPID PANEL REFLEX (10/27/2024 2:35 PM EDT) Cholesterol 155 <200 mg/dL 10/27/2024 8:40 PM EDT [facility] Comment: < 200 Desirable 200 - 239 Borderline High >= 240 High Triglyceride 186(H) <150 mg/dL 10/27/2024 8:40 PM EDT [facility] Comment: < 150 Normal 150 - 199 Borderline High 200 - 499 High >= 500 Very High HDL 35(L) >=40 mg/dL 10/27/2024 8:40 PM EDT [facility] Comment: > 60 Optimal 40 - 60 Acceptable < 40 Low LDL Calculated 88 <100 mg/dL 10/27/2024 8:40 PM EDT [facility] Comment: < 100 Optimal 100 - 129 Near or above optimal 130 - 159 Borderline High 160 - 189 High >= 190 Very High The National Institutes of Health (NIH) equation is used for all lipid panels that report calculated LDL (LDL-C). Non-HDL-C Calculated 120 <=129 mg/dL 10/27/2024 8:40 PM EDT [facility] Comment: <130 Desirable 130-159 Above Desirable 160-189 Borderline High 190-219 High >= 220 Very High Fasting Specimen? Yes None 025 8:40 PM EDT [facility] Blood VENOUS BLOOD / Unknown Venipuncture / Unknown 10/27/2024 2:35 PM EDT 10/27/2024 2:35 PM EDT us Domo Odonnell MD CHEMISTRY ORDERABLES Final Re sult [facility] [address] [facility] , [place] [address] * (ABNORMAL) MICROALBUMIN/CREATININE RATIO URINE (10/27/2024 2:35 PM EDT) Urine Microalb 46.9 mg/L 10/27/2024 9:50 PM EDT [facility] Urine Creatinine 113.0 mg/dL 10/27/2024 9:50 PM EDT [facility] Ur Microalb/Creat 42(H) 0 - 30 mg/g 10/27/2024 9:50 PM EDT [facility] Urine STRUCTURE OF URINARY TRACT PROPER / Unknown 10/27/2024 2:35 PM EDT 10/27/2024 2:35 PM EDT us Domo Odonnell MD URINE ORDERABLES Final Result [facility] [address] [facility] , [place] [address] * (ABNORMAL) COMPREHENSIVE METABOLIC PANEL (10/27/2024 2:35 PM EDT) Sodium 136 136 - 145 mmol/L 10/27/2024 8:40 PM EDT [facility] Potassium 4.6 3.5 - 5.0 mmol/L 10/27/2024 8:40 PM EDT [facility] Chloride 101 98 - 107 mmol/L 10/27/2024 8:40 PM EDT [facility] Total CO2 20(L) 22 - 29 mmol/L 10/27/2024 8:40 PM EDT [facility] Anion Gap 15 7 - 16 mmol/L 10/27/2024 8:40 PM EDT [facility] Calcium 9.8 8.6 - 10.4 mg/dL 10/27/2024 8:40 PM EDT [facility] Glucose Lvl 199(H) 70 - 99 mg/dL 10/27/2024 8:40 PM EDT [facility] BUN 8 6 - 20 mg/dL 10/27/2024 8:40 PM EDT [facility] Creatinine 0.97 0.51 - 1.30 mg/dL 10/27/2024 8:40 PM EDT [facility] Albumin 4.1 3.5 - 5.2 gm/dL 10/27/2024 8:40 PM EDT [facility] Total Protein 7.4 6.4 - 8.3 gm/dL 10/27/2024 8:40 PM EDT [facility] Bili Total 0.4 0.2 - 1.3 mg/dL 10/27/2024 8:40 PM EDT [facility] ALT 9 <=41 U/L 10/27/2024 8:40 PM EDT [facility] AST 22 <=40 U/L 10/27/2024 8:40 PM EDT [facility] Alk Phos 70 36 - 123 U/L 10/27/2024 8:40 PM EDT [facility] eGFR (CKD-EPIcr 2020) 68 >=60 mL/min/1.7 3 m2 10/27/2024 8:40 PM EDT [facility] Comment:Estimated GFR was ca lculated using the CKD-EPIcr (2020) equation refit without race. The equation is recommended by the National Kidney Foundation - [place] [employer] of Nephrology Task Force. Blood VENOUS BLOOD / Unknown Venipuncture / Unknown 10/27/2024 2:35 PM EDT 10/27/2024 2:[address] [facility] Domo Odonnell MD CHEMISTRY ORDERABLES Final Re sult Performing Organization Address City/[facility]/ZIP Co de Phone Number [facility] [address] [facility], [place] [address] * (ABNORMAL) POCT GLYCATED HEMOGLOBIN, TOTAL (10/27/2024 2:03 PM EDT) Hemoglobin A1C 10.0(A) 4 - 6 % SEP OFFICE Lot Number [id number] SEP OFFICE Expiration Date SEP OFFICE SeriAl # SEP OFFICE 10/27/2024 2:[address] [facility] Domo Odonnell MD POINT OF CARE TEST ORDERABLES Final Result Performing Organization Address City/[facility]/ZIP Co de Phone Number SEP OFFICE * [facility] EGD-COLONOSCOPY (08/26/2017 8:30 AM EST) 08/26/2017 8:30 AM EST Impressions [facility] - 08/26/2017 9:03 AM EST Plan: Colonoscopy in 5 years This section is an excerpt of the full report. 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
--- OUTSIDE RECORDS SUMMARY | 2025-02-08 10:45 | XMS_ITS | Encounter Summary ---
Author Organization [place] [address] Care Team Providers Care Unix Architect Name Role Phone Domo Odonnell MD Primary Care Provider [phone] Lali Hyde APRN Unavailable [phone] Reason for Visit * Reason Comments Medication Refill Encounter Details Date Type Department Care Team (Late st Contact Info) Description 01/12/2025 Refill SEP [facility] [address] [facility] [place] [address] Domo Odonnell MD [address] [place] [address] Medication Refill Social History Tobacco Use Types Packs/Day Years Used Date Smoking Tobacco: Former Cigarettes 4 33.2 0 07/06/1982 - 09/09/2015 Smokeless Tobacco: Never Alcohol Use Standard Drinks/Week Comments No 0 (1 standard drink = 0.6 oz pur e alcohol) [facility] Utilities Answer Date Recorded In the past 12 months has [employer] electric, gas, oil, or water company threatened to shut off services in your home? Yes 11/26/2023 Overall Financial Resource Strain (CARDIA) Francise r Date Recorded How hard is it for you to pa y for the very basics like food, housing, medical care, and heating? Not hard at all 11/26/2023 PHQ-2 Answer Date Recorded PHQ-2 Total Score 5 03/30/2024 [facility] [place] of Occupat ional Health - Occupational Stress [...] any time in the past 12 m [facility], were you homeless or living in a fci (including now)? No 11/26/2023 Sexually Active Control [...] 30 Tablet 2 01/13/2025 DEXCOM G7 SENSOR [facility] DeviceIndications:T ype 2 diabetes mellitus with stage 2 chronic kidney disease, with long-term current use of insulin (HCC) 1 EACH BY [facility].(NON-DR UG; COMBO ROUTE) ROUTE EVERY 10 DAYS. 3 Each 01/13/2025 documented in this encounter Miscellaneous Notes * Telephone Encounter - Sarah Abdul CPhT - 01/13/2025 2:28 PM EDT DEXCOM G7 SENSOR There is no CRS protocol for this medication. amitriptyline Future Visit: None Last Assessed Visit: 10/28/2024 for Fibromyalgia Follow-Up: 04/29/2025 All protocols passed. Refills approved and sent to requesting pharmacy. Routed to [facility] if applicable. documented in this encounter Plan of Treatment Upcoming Encounters Date Type Department Care Team (Late st Contact Info) Description 04/12/2025 12:40 PM EDT Office Visit [facility] [place] [address] [place] [address] Radha BetsyJANET [address] [address] documented as of this encounter [...] documented as of this encounter Care Teams Unix Architect Relationship Specialty Start Date End Date Domo Odonnell MD [address] [place] [address] PCP - General Family Medicine 12/06/12 Lali Hyde APRN [address] [place] [address] Nurse Practitioner 05/16/16 documented as of this encounter
[2025-02-08 11:39] LABS: Hemoglobin A1C 8.3 % (4.0-6.0)
[2025-02-08 12:20] LABS: Thyroid Stimulating Hormone 2.37 uIU/mL (0.465-4.68)
[2025-02-08 12:42] LABS: Hepatitis C Ab Qual. W/ RFX NEGATIVE (Negative)
[2025-02-09 12:12] LABS: FSH 15.6 mIU/mL (.); Testosterone,Total 16 ng/dL (4-50)
== END 2025-02-08 23:59 | disposition home or self-care (01) ==
LOC: LAB 10:39
PROVIDERS: PCP Family Medicine; Visit Provider Obstetrics & Gynecology
DX: E11.42 Type 2 diabetes mellitus with diabetic polyneuropathy (principal); L68.0 Hirsutism; Z53.20 Procedure and treatment not carried out because of patient's decision for unspecified reasons; G47.33 Obstructive sleep apnea (adult) (pediatric); E66.01 Morbid (severe) obesity due to excess calories; Z68.44 Body mass index [BMI] 60.0-69.9, adult; G96.08 Other cranial cerebrospinal fluid leak; L83 Acanthosis nigricans; Z11.4 Encounter for screening for human immunodeficiency virus [HIV]
CPT/HCPCS: 36415; 83001; 83036; 83498; 84146; 84403; 84443; 86803; 87389

== ENCOUNTER 2025-04-03 06:57 | Day surgery (SDC) | payer MEDICAID, SELFPAY ==
--- NOTE | 2025-03-31 07:43 | EXP.HP ---
History of Present Illness *Admission Date: 04/03/25 *History of present illness: Mrs. Nova is a 55-year-old female who is here for screening colonoscopy. The patient's father had colon cancer. The patient did have a colonoscopy in August 2017 that was normal (Ronny Bryan MD). The patient did have a normal upper endoscopy at that time along and had esophageal dilation (52 [address] Moreland) because of symptoms of dysphagia. The examination is deemed medically necessary for screening/surveillance colonoscopy. The patient has been seen, interviewed and examined prior to the procedure by both myself and the anesthesia provider. [facility] Disclaimer: The information contained in this section may have been updated after the patient was seen, as this information can be updated by other users. Medical History Sleep apnea Hyperlipidemia Hypertension Afib Postmenopausal bleeding ADAMS on CPAP Normal coronary arteries History of CVA (cerebrovascular accident) History of atrial fibrillation Diabetes Surgical History History of hysteroscopy History of left salpingo-oophorectomy History of D&C History of oral surgery Family History Other Alcoholism Anemia Asthma Cancer Diabetes Hyperlipidemia Hypertension Stroke Thyroid disorder Social History Smoking Status: Former smoker tobacco type: cigarettes alcohol intake: never substance use type: denies use current occupational status: disabled Travel in the last 8 weeks?: None household members: other housing: other caffeine: No Have you lived/traveled outside US in past 30 days?: No Contact w/someone who lives/traveled outside US past 30 days?: No Exposure to someone with infectious disease in past 14 days?: No Do you have a fever (greater than 100.4 F or 38 C)?: No Have you tested positive for COVID-19?: No Exposed to someone with COVID-19 in past 14 days?: No Do you have a sore throat?: No Do you have a cough?: No Do you have any weakness?: No Do you have any diarrhea?: No Are you experiencing any unusual bleeding?: No Do you have any muscle aches/pain?: No Do you have any abdominal pain?: No Are you experiencing loss of taste or smell?: No Other Medical History Have you received the Flu Vaccine for this season: No Have you received the Pneumonia Vaccine: No Review of Systems Review of Systems Review of systems (narrative): Negative *Cardiovascular Comments: Negative *Gastrointestinal Comments: Negative *Genitourinary Comments: Negative *Musculoskeletal Comments: Negative *Neurologic Comments: Negative Meds Home Medications and Allergies Home Medications ?Medication ?Instructions ?Recorded ?Confirmed ?Type apixaban 5 mg tablet 5 mg PO BID Blood thinner/hx of 12/29/17 03/31/25 History stroke lisinopril 10 mg tablet 10 mg PO DAILY High blood pressure 12/29/17 03/31/25 History metoprolol succinate 50 mg 50 mg PO DAILY High blood pressure 12/29/17 03/31/25 History tablet,extended release 24 hr (Toprol XL) pravastatin 40 mg tablet 20 mg PO HS Cholesterol 12/29/17 03/31/25 History selenium sulfide 2.5 % shampoo 1 dose topical WEEKLY dandruff 12/29/17 03/31/25 History famotidine 40 mg tablet 40 mg PO BID GERD 05/04/20 03/31/25 History lansoprazole 30 mg capsule,delayed 30 mg PO DAILY ACID REFLUX 05/04/20 03/31/25 History release metformin 1,000 mg tablet 1,000 mg PO BID Diabetes 05/04/20 03/31/25 History clobetasol 0.05 % topical cream 1 applic topical DAILY 11/12/20 03/31/25 History triamcinolone acetonide 0.1 % 1 applic topical DAILY 11/12/20 03/31/25 History topical cream terconazole 0.4 % vaginal cream 1 appful vaginal HS 7 days #45 06/11/21 03/31/25 Rx grams albuterol sulfate 90 mcg/actuation 1 puff inhalation ONCE 03/04/22 03/31/25 History aerosol inhaler (ProAir HFA) allopurinol 300 mg tablet 300 mg PO DAILY 03/04/22 03/31/25 History amitriptyline 50 mg tablet 50 mg PO DAILY 03/04/22 03/31/25 History duloxetine 60 mg capsule,delayed 60 mg PO BID Depression #60 caps 07/08/23 03/31/25 Rx release ergocalciferol (vitamin D2) 1,250 50,000 unit PO WEEKLY 09/03/23 03/31/25 History mcg (50,000 unit) capsule ferrous sulfate 325 mg (65 mg 325 mg PO DAILY PRN IRON 09/03/23 03/31/25 History iron) tablet (FeroSul) torsemide 20 mg tablet 20 mg PO DAILY PRN Fluid 09/03/23 03/31/25 History blood-glucose sensor (Dexcom G7 #1 ea 11/13/23 03/01/25 History Sensor device) loratadine 10 mg tablet 10 mg PO DAILY 11/13/23 03/31/25 History dapagliflozin propanediol 10 mg 10 mg PO DAILY 11/14/24 03/31/25 History tablet (Farxiga) dulaglutide 0.75 mg/0.5 mL 0.75 mg SQ WEEKLY 11/14/24 03/31/25 History subcutaneous pen injector (Trulicity) mometasone 220 mcg/actuation(14 220 mcg inhalation DAILY Asthma 11/14/24 03/31/25 History doses) breath activated powder inhaler medroxyprogesterone 10 mg tablet See Rx Instructions .Route 01/12/25 03/31/25 Rx .COMPLEX #30 tabs peg 3350-electrolytes 236 240 ml PO Q10M colonscopy #4,000 mL 03/28/25 03/31/25 Rx gram-22.74 gram-6.74 gram-5.86 gram solution (Golytely) New Prescriptions to Start Prescriptions: Allergies Allergy/AdvReac Type Severity Reaction Status Date / Time amoxicillin (AMOXICILLIN) Allergy Mild Hives Verified 03/31/25 14:02 cephalexin (From KEFLEX) Allergy Mild Unknown Verified 03/31/25 14:02 allergy reaction gabapentin (GABAPENTIN) Allergy Mild Hallucinati Verified 03/31/25 14:02 ng Penicillins (PENICILLINS) Allergy Mild Hives Verified 03/31/25 14:02 pregabalin (From Lyrica) Allergy Mild Unknown Verified 03/31/25 14:02 allergy reaction apple Allergy Swelling Verified 03/31/25 14:02 of Lip/Tongue/Throat Exam *Routine HEENT Exam Head: Present normocephalic Eye: Present EOMI and PERRL ENT: Present mucous membranes moist *Routine Neck Exam Neck: Present supple *Routine Respiratory Exam Respiratory: Present CTA bilaterally *Routine Cardiovascular Exam Cardiovascular: Present RRR *Routine Abdominal Exam Abdominal: Present soft and normoactive bowel sounds; Absent tenderness *Routine Rectal Exam Rectal:: deferred *Routine Genitalia Exam Genitalia:: deferred *Routine Extremities Exam Extremities: Absent cyanosis, clubbing or edema *Routine Skin Exam Skin: Present warm; Absent rash *Routine Neurological Exam Neurological: Present alert and oriented X3 Assessment and Plan *Assessment and plan (1) Family history of colon cancer in father: Status: Acute Category: Medical Code(s): Z80.0 - Family history of malignant neoplasm of digestive organs (2) Screening for colon cancer: Status: Acute Category: Medical Code(s): Z12.11 - Encounter for screening for malignant neoplasm of colon Plan A/P: 1. Family history of colon cancer (father) is the preprocedural diagnosis. The patient will be anesthetized/sedated using MAC sedation. The patient has been seen and examined. Cardiac and lung assessment prior to the examination is stable. Proceed with planned screening colonoscopy.
[2025-03-31 14:07] VITALS: BMI 48.2
--- NOTE | 2025-04-03 06:55 | P.PCN_ITS ---
[facility] Procedure Note Date: 04/03/25 Time: 09:11 Procedure Note:: Colonoscopy Procedure Report: Colonoscopy with cold snare polypectomy Endoscopist: Pedro Pablo Barrios II, MD Referring physician: Domo Odonnell MD, [address] [facility] [address] Date of Procedure: April 03, 2025 Equipment: Olympus [id number] adult colonoscope Sedation: MAC sedation Indication: Mrs. Nova is a 55-year-old female who is here for screening colonoscopy. The patient's father had colon cancer at age 66. The patient did have a colonoscopy in August 2017 that was normal (Ronny Bryan MD) at [facility]. The patient reports no abdominal pain, weight loss, change in her bowel habits or rectal bleeding. The patient did have a normal upper endoscopy in 2018 and had esophageal dilation (52 [place] Moreland) because of symptoms of dysphagia. The examination is deemed medically necessary for screening/surveillance colonoscopy. Procedure: Prior to the procedure, a history and physical exam was performed, and patient's medications and allergies were reviewed. The risks, benefits and alternatives of the sedation and procedure were discussed with the patient. All questions were answered and informed consent was obtained. The patient was brought to the procedure room. Patient identification and proposed procedure were verified by the physician and the nurse. The patient was placed in a left lateral decubitus position and the scope was passed under direct vision. Throughout the procedure, the patient's blood pressure, pulse, and oxygen saturations were monitored continuously. The colonoscopy was accomplished without difficulty. The patient tolerated the procedure well. Findings: On digital rectal examination there was normal rectal tone. There were no external hemorrhoids. The colonoscope was introduced through the anal canal to the rectum and advanced to the cecum. The ileocecal valve and appendiceal orifice were identified. The scope was advanced a short distance into the ileum which appeared grossly normal. The scope was then withdrawn into the colon. There was a single diminutive 3 to 4 mm polyp in the descending colon removed via cold snare polypectomy. The remaining cecum, ascending, transverse, descending, sigmoid and rectum were grossly normal. There were no other mucosal abnormalities identified. Upon retroflexion within the rectum there were grade 1 internal hemorrhoids. The preparation was excellent throughout with Lane Pre paration Score of 9. The cecal time was 12 minutes. Impression: 1. Diminutive 3 to 4 mm descending colon polyp Plan: I will follow-up the polyp histology and recommend repeat screening/surveillance colonoscopy in 7 years if the polyp is adenomatous.
[2025-04-03] MEDS: LACTATED RINGERS 1000ML 1,000 ML 50 ML IV (08:03)
[2025-04-03 08:07] VITALS: BP 136/70; PULSE 75; RESP 18; TEMP 36.6; O2SAT 100
[2025-04-03 08:22] LABS: POC Glucose,Bedside 224 gm/dL (70-110)
--- NOTE | 2025-04-03 08:25 | P.PNANES_ITS ---
[facility] Disclaimer: The information contained in this section may have been updated after the patient was seen, as this information can be updated by other users. Medical History Sleep apnea Hyperlipidemia Hypertension Afib Postmenopausal bleeding ADAMS on CPAP Normal coronary arteries History of CVA (cerebrovascular accident) History of atrial fibrillation Diabetes Surgical History History of hysteroscopy History of left salpingo-oophorectomy History of D&C History of oral surgery Family History Other Alcoholism Anemia Asthma Cancer Diabetes Hyperlipidemia Hypertension Stroke Thyroid disorder Social History Smoking Status: Former smoker tobacco type: cigarettes alcohol intake: never substance use type: denies use current occupational status: disabled Travel in the last 8 weeks?: None household members: other housing: other caffeine: No Have you lived/traveled outside US in past 30 days?: No Contact w/someone who lives/traveled outside US past 30 days?: No Exposure to someone with infectious disease in past 14 days?: No Do you have a fever (greater than 100.4 F or 38 C)?: No Have you tested positive for COVID-19?: No Exposed to someone with COVID-19 in past 14 days?: No Do you have a sore throat?: No Do you have a cough?: No Do you have any weakness?: No Do you have any diarrhea?: No Are you experiencing any unusual bleeding?: No Do you have any muscle aches/pain?: No Do you have any abdominal pain?: No Are you experiencing loss of taste or smell?: No [facility] Anesthesia Checklist Patient Identification Patient Identification: Arm Band and Verbal (Name & ) Structural Data Admitted From: Home Planned Operative Procedure/s: colonscopy Consent for Planned Operative Procedure(s) Verified: Yes Verified Documents: Surgical Consent and History and Physical NPO Status Verified Time NPO: 00:00 Additional verifications Anesthesia Reactions: No Hx Blood Transfusions: Yes Blood Transfusion Reaction: No Previous Colonoscopy: Yes Airway Assessment Mallampati Score:: Class II Dentition: Edentulous Neurological Assessment Level of Consciousness: Awake, Alert and Appropriate Hx Seizures: No Numbness or tingling in extremities: Yes Anesthesia Plan Anesthesia Risk discussed: Yes Anesthesia Plan: Verified ASA Class: III Anesthesia Type: MAC
[2025-04-03 09:15] VITALS: BP 123/82; PULSE 97; RESP 18; TEMP 36.2; O2SAT 91
[2025-04-03 09:25] VITALS: BP 126/76; PULSE 89; RESP 18; TEMP 36.2; O2SAT 93
[2025-04-03 09:35] VITALS: BP 120/61; PULSE 84; RESP 18; TEMP 36.2; O2SAT 96
[2025-04-03 09:45] VITALS: BP 113/69; PULSE 78; RESP 17; TEMP 36.2; O2SAT 97
== END 2025-04-03 10:00 | disposition home or self-care (01) ==
PROVIDERS: PCP Family Medicine; Visit Provider Internal Medicine Gastroenterology
PROC: 0DJD8ZZ Inspection of Lower Intestinal Tract, Via Natural or Artificial Opening Endoscopic (ICD-10-PCS; CPT 45378; principal; 2025-04-03 09:00)
DX: Z12.11 Encounter for screening for malignant neoplasm of colon (principal); D12.4 Benign neoplasm of descending colon; K64.0 First degree hemorrhoids; I11.9 Hypertensive heart disease without heart failure; E78.5 Hyperlipidemia, unspecified; I48.91 Unspecified atrial fibrillation; E11.9 Type 2 diabetes mellitus without 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s; Z79.84 Long term (current) use of oral hypoglycemic drugs; Z79.85 Long-term (current) use of injectable non-insulin antidiabetic drugs; Z79.01 Long term (current) use of anticoagulants; Z87.891 Personal history of nicotine dependence; Z88.1 Allergy status to other antibiotic agents; Z88.0 Allergy status to penicillin; Z88.8 Allergy status to other drugs, medicaments and biological substances; Z80.0 Family history of malignant neoplasm of digestive organs
CPT/HCPCS: 45385; 82962; J2003; J2704; J7120

== ENCOUNTER 2025-04-11 14:00 | Outpatient (CLI) | payer MEDICAID, SELFPAY ==
--- OUTSIDE RECORDS SUMMARY | 2025-04-11 14:02 | XMS_ITS | Clinical Summary ---
Author Organization [facility] Address [address] [place] [address] Care Team Providers Care Bending Press Operator Name Role Phone Domo Odonnell MD Primary Care Provider [phone] Festus Alan MD Unavailable [phone] Festus Alan MD Unavailable [phone] Allergies Active Allergy Reactions Criticality Noted [...] 07/26/19 21 Active Blood Glucose Monitoring Suppl (ZazumStyle glucose monitoring) kit Use as directed to check blood sugar 07/24/19 18 Active fluorouracil (Efudex) 5 % cream Apply topically twice a day. 03/11/20 19 Active glucose blood (Posibauch Ultra) test strip USE TO TEST BLOOD [...] tablet 03/04/20 Active Lancets (OneTouch Delica Plus [id number]) misc SUBCUTANEOUS (INJECT UNDER THE SKIN) 1 [...] Date Last Done Comments [facility]-Depression Screening 1968 [facility]-Infant/Child/Adol SDOH Screenings 1968 [facility]- SDOH Screenings 1986 [facility]-Adult SDOH Screenings 1986 [facility]-DTaP,Tdap,and Td Vaccine s (1 - Tdap) 1987 [facility]-Pap Smear 1989 [facility]-Cervical Cancer Screening 1998 [facility]-HPV/Cotest 1998 CT Colonography 2013 Colonoscopy 2013 FIT-DNA 2013 FIT 2013 FOBT 2013 Sigmoidoscopy 2013 [facility]-Colorectal Cancer Screening 2013 [facility]-Zoster Vaccines (1 of 2) 2018 [facility]-Pneumococcal Vaccine: 50 + Years (2 of 2 - PCV) 12/19/2018 12/19/2017 [id number] Vaccine (1 - season) 2025 [facility]-Influenza Vaccine (#1) 2025 05/15/2021 [facility]-Hepatitis B [...] this topic Medical Devices Implanted Type Area Dietetic Assistant Device Identifier Shelf Expiration Date Model / Serial / Lot Closure Device Vip Angioseal 8 Fr - [id number] Implanted:Qty: 1 on 02/27/2021 by Festus Alan MD at [facility] [id number] 09/02/2021 [id number] / / [id number] Insurance [facility] MEDICAID Care Teams Bending Press Operator Relationship Specialty Start Date End Date Domo Odonnell MD [address] [place] [address] PCP - General 11/16/20 Festus Alan MD [address] [place] [address] Surgeon Neurosurgery 01/25/21 Festus Alan MD [address] [place] [address] Surgeon Neurosurgery 03/15/21
--- OUTSIDE RECORDS SUMMARY | 2025-04-11 14:02 | XMS_ITS | Encounter Summary ---
Author Organization Healthcare Address [address] [place] [address] Care Team Providers Care Field Kiln Burner Name Role Phone Domo Odonnell MD Primary Care Provider Festus Alan MD Unavailable Festus Alan MD Unavailable Encounter Details Date Type Department Care Team (Late st Contact Info) Description 11/27/2020 [facility] [address] [place] [address] Festus Alan MD [address] [place] [address] Social History Tobacco Use Types [...] on filedocumented in this encounter Care Teams Field Kiln Burner Relationship Specialty Start Date End Date Domo dOonnell MD [address] [place] [id number] PCP - General 11/16/20 Festus Alan MD [address] [place] [address] Surgeon Neurosurgery 01/25/21 Festus Alan MD [address] [place] [address] Surgeon Neurosurgery 03/15/21 documented as of this encounter
--- OUTSIDE RECORDS SUMMARY | 2025-04-11 14:02 | XMS_ITS | Clinical Summary ---
Author Organization [facility] Address [address] [place] [address] Phone Care Team Providers Care Floral Designer Name Role Phone Domo Odonnell MD Primary Care Provider [phone] Lali Hyde APRN Unavailable [phone] Allergies Active Allergy Reactions Criticality Noted [...] fluid retention Semaglutide Other (See Comments) 10/27/2024 [place] poorly on this. Did much better on mounjaro Pantoprazole 04/10/2016 Constant Vomiting Penicillins 08/31/2011 Azithromycin Itching Medium 06/24/2014 itching Medications aspirin 81 mg Oral Tablet, Chewable Take 1 Tab by mouth daily. 09/13/19 16 Active Miscellaneous Medical Supply Misc Misc Transfer bench for shower 1 Each 07/24/19 18 Active acetaminophen (TYLENOL) 500 mg Oral TabletIndications: Fibromyalgia,Prima ry osteoarthritis involving multiple joints Take 2 Tabs by mouth 4 times daily as needed. Max dose is 8 tabs daily (4000 mg). 200 Tab 12 07/26/19 21 Active fluticasone propionate (FLOVENT HFA) 110 mcg/actuation [facility] HFA Aerosol InhalerIndications :Mild intermittent asthma without 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 Inhale 2 Puffs into the lungs 2 times daily. 12 g 2 11/09/19 21 Active FEROSUL 325 mg (65 mg iron) Oral TabletIndications: Iron deficiency anemia, unspecified iron deficiency anemia type TAKE 1 TABLET BY MOUTH DAILY (WITH BREAKFAST). 30 Tablet 1 12/23/19 24 Active lisinopriL (PRINIVIL;ZESTRIL) 10 mg Oral TabletIndications: Cerebrovascular accident, old,LVH (left ventricular hypertrophy) TAKE 1 TABLET BY MOUTH DAILY. 100 Tablet 2 08/31/19 25 Active lancets (ONETOUCH DELICA PLUS LANCET) [address] [facility] MiscIndications:Ty pe 2 diabetes mellitus with stage 2 chronic kidney disease, unspecified whether ferry terminal agent insulin use (HCC) 1 EACH [place] [facility]; COMBO ROUTE) ROUTE DAILY. 100 Each 08/31/19 25 Active ONETOUCH ULTRA TEST [facility] StripIndications:T ype 2 diabetes mellitus with stage 2 chronic kidney disease, unspecified whether ferry terminal agent insulin use (HCC) USE TO TEST BLOOD SUGAR ONCE DAILY 100 Strip 08/31/19 25 Active Blood-Glucose Meter (ONETOUCH ULTRA2 METER) [facility] USE DIRECTED TO CHECK BLOOD SUGAR 100 Each 08/31/19 25 Active famotidine (PEPCID) 40 mg Oral TabletIndications: Gastroesophageal reflux disease with esophagitis without hemorrhage TAKE 1 TABLET BY MOUTH 2 TIMES DAILY. 200 Tablet 1 10/14/19 25 Active allopurinoL (ZYLOPRIM) 300 mg Oral TabletIndications: Idiopathic chronic gout of multiple sites without tophus TAKE 1 TABLET BY MOUTH DAILY. 100 Tablet 1 10/14/19 25 Active metoprolol succinate (TOPROL-XL) 50 mg Oral Tablet Sustained Release 24 hrIndications:Cere brovascular accident, old,LVH (left ventricular hypertrophy),Typic al atrial flutter (HCC) TAKE 1 TABLET BY MOUTH DAILY. 100 Tablet 1 10/14/19 25 Active torsemide (DEMADEX) 20 mg Oral TabletIndications: LVH (left ventricular hypertrophy) Take 1 Tablet by mouth daily. 90 Tablet 1 10/28/19 25 Active pravastatin (PRAVACHOL) 40 mg Oral TabletIndications: Hyperlipidemia associated with type 2 diabetes mellitus (HCC),Cerebrovascu lar accident, old TAKE 1 TABLET BY MOUTH ONCE DAILY 90 Tablet 1 10/28/19 25 Active loratadine (CLARITIN) 10 mg Oral TabletIndications: Mild intermittent asthma without 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 Take 1 Tablet by mouth daily as needed. 90 Tablet 1 10/28/19 25 Active lansoprazole (PREVACID) 30 mg Oral Capsule, Delayed Release(E.C.)Indic ations:Gastroesoph ageal reflux disease with esophagitis without hemorrhage Take 1 Capsule by mouth daily. 90 Capsule 1 10/28/19 25 Active DULoxetine (CYMBALTA) 60 mg Oral Capsule, Delayed Release(E.C.)Indic ations:Major depressive disorder, recurrent episode, mild,Fibromyalgia TAKE 1 CAPSULE BY MOUTH 2 TIMES DAILY 180 Capsule 1 10/28/19 25 Active dapagliflozin propanediol (FARXIGA) 10 mg Oral TabletIndications: Type 2 diabetes mellitus with stage 2 chronic kidney disease, without long-term current use of insulin ([facility]) Take 1 Tablet by mouth daily. 90 Tablet 1 10/28/19 25 Active apixaban (ELIQUIS) 5 mg Oral TabletIndications: Typical atrial flutter (HCC),Cerebrovascu lar accident, old Take 1 Tablet by mouth 2 times daily. 180 Tablet 1 10/28/19 25 Active tirzepatide (MOUNJARO) 5 mg/0.5 mL SubQ Pen InjectorIndication s:Type 2 diabetes mellitus with stage 2 chronic kidney disease, without long-term current use of insulin ([facility]) Subcutaneous (Inject under the skin) 5 mg once a week. 2 mL 5 10/28/19 25 Active dulaglutide (TRULICITY) 0.75 mg/0.5 mL SubQ Pen Injector Subcutaneous (Inject under the skin) 0.5 mL once a week. 2 mL 2 10/29/19 25 Active metFORMIN (GLUCOPHAGE) 1,000 mg Oral TabletIndications: Type 2 diabetes mellitus with stage 2 chronic kidney disease, with long-term current use of insulin ([facility]) TAKE 1 TABLET BY MOUTH 2 TIMES DAILY (WITH MEALS). 200 Tablet 1 11/23/19 25 Active VENTOLIN HFA 90 mcg/actuation Inhl HFA Aerosol InhalerIndications :Mild intermittent asthma without 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 INHALE 1 PUFF INTO THE LUNGS EVERY 6 HOURS NEEDED FOR WHEEZING 18 g 2 12/17/19 25 Active ergocalciferol (DRISDOL) 1,250 mcg (50,000 unit) Oral CapsuleIndications :Vitamin D deficiency TAKE 1 CAPSULE BY MOUTH ONCE A WEEK. 4 Capsule 12/17/19 [address] G[address] [facility] DeviceIndications: Type 2 diabetes mellitus with stage 2 chronic kidney disease, with long-term current use of insulin (HCC) 1 EACH [place] [facility]; COMBO ROUTE) ROUTE EVERY 10 DAYS. 3 Each 01/14/20 25 Active amitriptyline (ELAVIL) 50 mg Oral TabletIndications: Fibromyalgia TAKE 1 TABLET BY MOUTH NIGHTLY. 30 Tablet 2 01/14/20 25 Active Active Problems Patient Care Coordination No te Formatting of this note migh t be different from the original. [facility] audit completed by Purnima Caballero RN [...] patients risk of GI bleeding, risk of THERMOGRAPH OPERATOR bleeding or other medication / medical [...] 09/09/2015 09/12/2015 CVA (cerebral vascular accid ent) ([facility]); 09/2015; MRI + of multiple small [...] Encounters Date Type Department Care Team Description 02/09/2025 Abstract [facility] [place] [address] [place] [address] Danielle Perez RMA 01/26/2025 Abstract [facility] [place] [address] [place] [address] Domo Odonnell MD 01/12/2025 Refill [facility] [place] [address] [place] [address] Domo Odonnell MD Medication Refill from Last 3 Months Immunizations Immunization Administration [...] gout of foot without tophus Stroke (HCC) 2015 CKD (chronic kidney disease) stage 2, GFR [...] oz pur e alcohol) [facility] Utilities Answer Date Recorded In the past 12 months has [employer], gas, oil, or water [employer] threatened to shut off services in your home? Yes 11/26/2023 Overall Financial Resource Strain (CARDIA) Answe r Date Recorded How hard is it for you to pa y for the very basics like food, housing, medical care, and heating? Not hard at all 11/26/2023 PHQ-2 Answer Date Recorded PHQ-2 Total Score 5 03/30/2024 [facility] Occup[facility] - Occupational Stress [...] time in the past 12 m [facility], were you homeless or living in a [...] 12:40 PM EDT Office Visit [facility] [place] [address] [place] [address] Betsy Garcia, DETENTION ATTENDANT [address] [address] Health Maintenance Due Date Last Done Comments HPV/Pap Cotest 1998 Cologuard 2013 FIT 2013 Sigmoidoscopy 2013 Virtual Colonography 2013 Low Dose Lung Cancer Screening 2018 Zoster (1 of 2) 2018 Pneumococcal Vaccine 50+ (2 of 2 - PCV) 12/19/2018 12/19/2017 COVID-19 Vaccine (1 - season) 2025 Influenza Vaccine (#1) 2025 , 05/15/2021, 04/15/2019, Additional history exists Annual Wellness Exam 03/30/2025 03/30/2024, 08/26/19 20 Hemoglobin A1c 08/11/2025 02/08/2025, 10/05, 03/30/2024, Additional history exists Kidney Health: eGFR 10/27/2025 10/27/2024, 03/30/2024, 04/10/2023, Additional history exists Kidney Health: uACR 10/27/2025 10/27/2024 Lipids 10/27/2025 10/27/2024, 10/05, 04/10/2023, Additional history exists Breast Cancer Screening 01/20/2026 01/21/20 25, 01/04/2018, 01/04/2018, Additional history exists Cervical Cancer [...] Procedure Name Priority Date/Time Associated Diagnosis Comments SCANNED LABS 02/21/2025 3:12 PM EDT HEMOGLOBIN A1C Routine 02/08/2025 HIV AG/AB Routine 02/08/2025 HCV ANTIBODY SCREEN W/ REFLEX Routine 02/08/2025 THYROID STIMULATING HORMONE (TSH)-[facility] Routine 02/08/2025 HM MAMMOGRAPHY Routine 01/20/2025 MICROALBUMIN/CREATININ E RATIO URINE Routine 10/27/2024 2:35 PM EDT Type 2 diabetes mellitus with stage 2 chronic kidney disease, without long-term current use of insulin (HCC) COMPREHENSIVE METABOLIC PANEL Routine 10/27/2024 2:35 PM EDT Hyperlipidemia associated with type 2 diabetes mellitus (HCC) LIPID PANEL REFLEX Routine 10/27/2024 2: 35 PM EDT Hyperlipidemia associated with type 2 diabetes mellitus (HCC) [facility] EGD-COLONOSCOPY Routine 08/26/2017 8:30 AM EST from Last 3 Months or Most Recently Relevant to Health Maintenance Results * SCANNED LABS (02/21/2025 3:12 PM EDT) 02/21/2025 3:12 PM EDT us Unknown Provider HEMATOLOGY ORDERABLES Final Res ult * HIV AG/AB (02/08/2025) HIV 1&2 Ab nega SEP OFFICE Blood VENOUS BLOOD / Unknown 02/08/2025 us Historical Provider IMMUNOLOGY ORDERABLES Final Result SEP OFFICE * THYROID STIMULATING HORMONE (TSH)-[facility] (02/08/2025) TSH 2.370 0.400 - 4.500 MCIU/ML SEP OFFICE 02/08/2025 us Historical Provider QUEST-CHEMISTRY ORDERABLES F inal Result SEP OFFICE * HCV ANTIBODY SCREEN W/ REFLEX (02/08/2025) HCV Ab neg SEP OFFICE Blood VENOUS BLOOD / Unknown 02/08/2025 us Historical Provider HEMATOLOGY ORDERABLES Final Result SEP OFFICE * HEMOGLOBIN A1C (02/08/2025) A1c 8.3 SEP OFFICE Blood VENOUS BLOOD / Unknown 02/08/2025 us Historical Provider CHEMISTRY ORDERABLES Final R esult SEP OFFICE * HM MAMMOGRAPHY (01/20/2025) 01/20/2025 us Historical Provider HEALTH MAINTENANCE Final Res ult SEP OFFICE * (ABNORMAL) LIPID PANEL REFLEX (10/27/2024 2:35 PM EDT) Cholesterol 155 <200 mg/dL 10/27/2024 8:40 PM EDT [facility] Comment: < 200 Desirable 200 - 239 Borderline High >= 240 High Triglyceride 186(H) <150 mg/dL 10/27/2024 8:40 PM EDT [facility] Comment: < 150 Normal 150 - 199 Borderline High 200 - 499 High >= 500 Very High HDL 35(L) >=40 mg/dL 10/27/2024 8:40 PM EDT [facility] Comment: > 60 Optimal 40 - 60 Acceptable < 40 Low LDL Calculated 88 <100 mg/dL 10/27/2024 8:40 PM EDT [facility] Comment: < 100 Optimal 100 - 129 Near or above optimal 130 - 159 Borderline High 160 - 189 High >= 190 Very High The National Institutes of Health (NIH) equation is used for all lipid panels that report calculated LDL (LDL-C). Non-HDL-C Calculated 120 <=129 mg/dL 10/27/2024 8:40 PM EDT [facility] Comment: <130 Desirable 130-159 Above Desirable 160-189 Borderline High 190-219 High >= 220 Very High Fasting Specimen? Yes None 025 8:40 PM EDT [facility] Blood VENOUS BLOOD / Unknown Venipuncture / Unknown 10/27/2024 2:35 PM EDT 10/27/2024 2:35 PM EDT Domo Odonnell MD CHEMISTRY ORDERABLES Final Re sult [facility] [address] [facility] , [place] [address] * (ABNORMAL) MICROALBUMIN/CREATININE RATIO URINE (10/27/2024 2:35 PM EDT) Urine Microalb 46.9 mg/L 10/27/2024 9:50 PM EDT [facility] Urine Creatinine 113.0 mg/dL 10/27/2024 9:50 PM EDT [facility] Ur Microalb/Creat 42(H) 0 - 30 mg/g 10/27/2024 9:50 PM EDT [facility] Urine STRUCTURE OF URINARY TRACT PROPER / Unknown 10/27/2024 2:35 PM EDT 10/27/2024 2:35 PM EDT us Domo Odonnell MD URINE ORDERABLES Final Result [facility] [address] [facility] , [place] [address] * (ABNORMAL) COMPREHENSIVE METABOLIC PANEL (10/27/2024 2:35 [...] 10/27/2024 8:40 PM EDT [facility] Total Protein 7.4 6.4 - 8.3 [...] - 123 U/L 10/27/2024 8:40 PM EDT [facility] eGFR (CKD-EPIcr 2020) 68 >=60 mL/min/1.7 3 m2 10/27/2024 8:40 PM EDT [facility] Comment:Estimated GFR was ca lculated using the CKD-EPIcr (2020) equation refit without race. The equation is recommended by the National Kidney Foundation - [place] [employer] of Nephrology Task Force. Blood VENOUS BLOOD / Unknown Venipuncture / Unknown 10/27/2024 2:35 PM EDT 10/27/2024 2:35 PM EDT Domo Odonnell MD CHEMISTRY ORDERABLES Final Re sult [facility] [address] [facility], [place] [address] * [facility] EGD-COLONOSCOPY (08/26/2017 8:30 AM EST) 08/26/2017 8:30 AM EST Impressions [facility] - 08/26/2017 9:03 AM EST Plan: Colonoscopy in 5 years This section is an excerpt of the full report. Ronny Bryan MD GI PROCEDURE ORDERABLES Fin al Result Performing Organization Address City/[facility]/ZIP Co de Phone Number [facility] [address] [place] [address] from Last 3 Months or Most Recently Relevant to Health Maintenance Insurance [facility] [place] [id number] [facility] [employer] [place] [facility] [place] [id number] 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
[2025-04-11] MEDS: ALBUTEROL 0.083% 2.5 MG/3 ML NEB IH (14:49)
--- NOTE | 2025-04-11 14:49 | PC.NURSE ---
PFT and [address] Test completed without incident. Albuterol 0.083% given via HHN, per written protocol, Pt tolerated tx well.
== END 2025-04-11 23:59 | disposition home or self-care (01) ==
LOC: RT 14:00
PROVIDERS: PCP Family Medicine; Visit Provider Internal Medicine Pulmonary Disease
DX: R06.02 Shortness of breath (principal); R06.09 Other forms of dyspnea
CPT/HCPCS: 94060; 94618; 94726; 94729

== ENCOUNTER 2025-04-19 12:46 | Outpatient (CLI) | payer MEDICAID, SELFPAY ==
--- OUTSIDE RECORDS SUMMARY | 2025-04-12 12:40 | XMS_ITS | Encounter Summary ---
Author [place] [address] Care Team Providers Care Patient Services Technician Name Role Phone Domo Odonnell MD Primary Care Provider [phone] Lali Hyde APRN Unavailable [phone] Reason for Referral * Consultation (Routine) - Pending Review Specialty Diagnoses / Procedures Referred By Bryce torres Referred To Contact Diabetes Services Diagnoses Type 2 diabetes mellitus with diabetic polyneuropathy, with long-term current use of insulin (HCC) Betsy Garcia APRN [address] [facility] [address] [place], [place] [phone] Phone: tel: fax: Referral ID Status Reason Start Date Expiration Date V isits Requested Visits Authorized [id number] Pending Review 04/12/2025 04/12/2026 99 99 Question [...] (HCC) Betsy Garcia APRN [address] [employer] [address] [place] [phone] Phone: tel: fax: Referral ID Status Reason Start Date Expiration Date V isits Requested Visits Authorized [id number] Pending Review 04/12/2025 04/12/2026 99 99 Question [...] with other specified 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 (HCC) Precordial pain [facility] [address] [employer] [address] [place] [phone] Phone: tel: fax: Referral ID Status Reason Start Date Expiration Date Visits Requested Visits Authorized [id number] Authorization Not Needed 11/15/2024 11/15/2025 1 1 Encounter Details Date Type Department Care Team (Latest Contact Info) Description 04/12/2025 12:40 PM EDT Office Visit SEP Diabetes [address] [address] Betsy Garcia APRN [address] [employer] [address] [place] [phone] Type 2 diabetes mellitus with hyperglycemia, [...] Type 1 diabetes mellitus with 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, with dehydrator current use of insulin pump (HCC) Social History Tobacco Use Types Packs/Day Years Used Date Smoking Tobacco: Former Cigarettes 4 33.2 0 07/06/1982 - 09/09/2015 Smokeless Tobacco: Never Alcohol Use Standard Drinks/Week Comments No 0 (1 standard drink = 0.6 oz pur e alcohol) [facility] Utilities Answer Date Recorded In the [...] 5 03/30/2024 [facility] - Occupational Stress Questionnaire Answer Date [...] any time in the past 12 m [facility], were you homeless or living in a group home (including now)? No 11/26/2023 Sexually Active [...] Filled Start Date End Date DEXCOM G7 SET ILLUSTRATOR [facility] MiscIndications:Ty pe 1 diabetes mellitus with 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, with long-term current use of insulin pump (HCC) 1 Each by [facility].(Non-Drug; Combo Route) route continuous. Use as directed for continuous blood glucose monitoring. 1 Each 04/12/2025 DEXCOM G7 SENSOR [facility] DeviceIndications: Type 1 diabetes mellitus with 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, with long-term current use of insulin pump (HCC) 1 Each by [facility].(Non-Drug; Combo Route) route every 10 days. Dx [...] with type 2 diabetes mellitus (HCC) * Betsy Garcia APRN - 04/12/2025 [...] edentulous Eyes: Conjunctiva/sclera: Conjunctivae normal. Neck: Comments: Thurston hump. Cardiovascular: Rate and Rhythm: Normal rate. [...] Type 1 diabetes mellitus with 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, with dehydrator current use of insulin pump ([facility]) Orders: DEXCOM G7 SENSOR Misc Device; 1 Each by Misc.(Non-Drug; Combo Route) route every 10 days. Dx code: E10.9 DEXCOM G7 SET ILLUSTRATOR Misc Misc; 1 Each by Misc.(Non-Drug; Combo [...] 1 Tab by mouth daily. Blood-Glucose Meter (Adlogix ULTRA2 METER) [facility] USE DIRECTED TO CHECK BLOOD SUGAR [...] 2 times daily. 12 g 2 lancets (Ra PharmaceuticalsTOUCH DELICA PLUS LANCET) 30 gauge [facility] Misc 1 EACH BY [facility]NON- DRUG; COMBO ROUTE) ROUTE DAILY. 100 Each [...] DAILY. 100 Tablet 1 Miscellaneous Medical Supply [facility] Transfer bench for shower 1 Each 0 ONETOUCH ULTRA TEST [facility] Strip USE TO TEST BLOOD SUGAR ONCE [...] WHEEZING 18 g 2 DEXCOM G7 SENSOR [facility] Device 1 EACH BY [facility].(NON-DRUG; COMBO ROUTE) ROUTE EVERY 10 DAYS. (Patient [...] replace fingerstick SMBG) Training done according to hot roll inspector???s guidelines Insertion/removal of sensor - 10 day [...] the relationship of blood glucose levels to long-term 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s of diabetes and screening and preventative [...] 12:00 PM EST Office Visit SEP Diabetes [address] [address] Betsy Garcia APRN [address] [phone] Scheduled Orders Name Type Priority [...] Type 1 diabetes mellitus with 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, with long-term current use of insulin pump (HCC) 1 [...] hyperglycemia, without long-term current use of insulin ([facility])- Primary Abnormal weight gain Dyslipidemia associated with [...] polyneuropathy, with long-term current use of insulin ([facility]) Diabetic polyneuropathy associated with type 2 diabetes mellitus (HCC) ADAMS (obstructive sleep apnea) Obstructive sleep apnea (adult) (pediatric) Microalbuminuric diabetic nephropathy (HCC) Type 1 diabetes mellitus with 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, with long-term current use of insulin pump ([facility]) documented in this encounter Discontinued Medications Medication Sig Discontinue Reason Start Date End Da te tirzepatide (MOUNJARO) 5 mg/0.5 mL SubQ Pen InjectorIndications:T ype 2 diabetes mellitus with stage 2 chronic kidney disease, without long-term current use of insulin ([facility]) Subcutaneous (Inject under the skin) 5 mg [...] documented as of this encounter Care Teams Patient Services Technician Relationship Specialty Start Date End Date Domo Odonnell MD [address] [place] [address] PCP - General Family Medicine 12/06/12 Lali Hyde APRN [address] [place] [address] Nurse Practitioner 05/16/16 documented as of this encounter
--- OUTSIDE RECORDS SUMMARY | 2025-04-19 12:48 | XMS_ITS | Encounter Summary ---
Author Organization [place] [address] Care Team Providers Care Pediatric Speech Language Pathologist Name Role Phone Domo Odonnell MD Primary Care Provider [phone] Lali Hyde BENCH WORKER BINDING Unavailable [phone] Reason for Visit * Reason Comments Medication Refill Encounter Details Date Type Department Care Team (Late st Contact Info) Description 04/17/2025 Refill SEP [facility] [address] [facility] [place] [address] Domo Odonnell MD [address] [place] [address] Medication Refill Social History Tobacco Use Types Packs/Day Years Used Date Smoking Tobacco: Former Cigarettes 4 33.2 0 07/06/1982 - 09/09/2015 Smokeless Tobacco: Never Alcohol Use Standard Drinks/Week Comments No 0 (1 standard drink = 0.6 oz pur e alcohol) [facility] Utilities Answer Date Recorded In the past 12 months has [employer] electric, gas, oil, or water company threatened to shut off services in your home? Yes 11/26/2023 Overall Financial Resource Strain (CARDIA) Francise r Date Recorded How hard is it for you to pa y for the very basics like food, housing, medical care, and heating? Not hard at all 11/26/2023 PHQ-2 Answer Date Recorded PHQ-2 Total Score 5 03/30/2024 [facility] [employer] [facility] [employer] ional [facility] - Occupational Stress [...] any time in the past 12 m [facility], were you homeless or living in a custodial (including now)? No 11/26/2023 Sexually Active Control [...] TABLET BY MOUTH NIGHTLY. 30 Tablet 2 04/19/2025 documented in this encounter Miscellaneous Notes * Telephone Encounter - Sarah Abdul CPhT - 04/19/2025 10:14 AM EDT amitriptyline Future Visit: None Last Assessed Visit: 10/27/2024 for Fibromyalgia Follow-Up: 04/28/2025 Last Office Visit: 11/22/2024 (dx code not assessed) All protocols passed. Refills approved and sent to requesting pharmacy. Routed to [facility] if an appointment is needed. TRULICITY 0.75 mg/0.5 mL Refill request deferred to the office: Medication noted as not taking Future Visit: None Last Assessed Visit: 10/27/2024 Follow-Up: 04/28/2025 documented in this encounter Plan of Treatment Upcoming Encounters Date Type Department Care Team (Late st Contact Info) Description 05/24/2025 12:00 PM EST Office Visit SEP Diabetes [place] [address] [place] [address] Betsy Garcia APRN [address] [phone] documented as of this encounter [...] as of this encounter Visit Diagnoses Diagnosis Fibromyalgia Mylagia and myositis, unspecified documented in this encounter Discontinued Medications Medication Sig Discontinue Reason Start Date End Da te amitriptyline (ELAVIL) 50 mg Oral TabletIndications:Fibrom yalgia TAKE 1 TABLET BY MOUTH NIGHTLY. 01/13/2025 04/19/2025 documented as of this encounter Additional Health Concerns Assessment Noted Time PHQ-9 Depression Total Score: 17 024 1:00 PM EDT PHQ-2 Depression Total Score: 5 03/30/20 24 1:00 PM EDT documented as of this encounter Care Teams Pediatric Speech Language Pathologist Relationship Specialty Start Date End Date Domo Odonnell MD [address] [place] [address] PCP - General Family Medicine 12/06/12 Lali Hyde APRN [address] [place] [address] Nurse Practitioner 05/16/16 documented as of this encounter
--- OUTSIDE RECORDS SUMMARY | 2025-04-19 12:48 | XMS_ITS | Clinical Summary ---
Author Organization [facility] Address [address] [place] [address] Phone Care Team Providers Care Wing Commander Name Role Phone Domo Odonnell MD Primary Care Provider [phone] Lali Hyde APRN Unavailable [phone] Allergies Active Allergy Reactions Criticality Noted [...] fluid retention Semaglutide Other (See Comments) 10/27/2024 [facility] poorly on this. Did much better on [...] lancets (ONETOUCH DELICA PLUS LANCET) 30 gauge [facility] MiscIndications:T ype 2 diabetes mellitus with stage 2 chronic kidney disease, unspecified whether senior care insulin use (HCC) 1 EACH BY [facility].(NON-DRUG; COMBO ROUTE) ROUTE DAILY. 100 Each 025 Active ONETOUCH ULTRA TEST [facility] StripIndications: Type 2 diabetes mellitus with stage 2 chronic kidney disease, unspecified whether extermination supervisor insulin use (HCC) USE TO TEST BLOOD SUGAR ONCE DAILY 100 Strip 025 Active Blood-Glucose Meter (ONETOUCH ULTRA2 METER) [facility] USE DIRECTED TO CHECK BLOOD SUGAR [...] TABLET BY MOUTH ONCE DAILY 90 Tablet 025 Active loratadine (CLARITIN) 10 mg Oral TabletIndications :Mild intermittent asthma without 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 Take 1 Tablet by mouth daily as needed. 90 Tablet 025 Active lansoprazole (PREVACID) 30 mg Oral Capsule, Delayed Release(E.C.)Arpita cations:Gastroeso phageal reflux disease with esophagitis without hemorrhage Take 1 Capsule by mouth daily. 90 Capsule 025 Active DULoxetine (CYMBALTA) 60 mg Oral Capsule, Delayed Release(E.C.)Arpita cations:Major depressive disorder, recurrent episode, mild,Fibromyalgia TAKE 1 CAPSULE BY MOUTH 2 TIMES DAILY 180 Capsule 025 Active dapagliflozin propanediol (FARXIGA) 10 mg Oral TabletIndications :Type 2 diabetes mellitus with stage 2 chronic kidney disease, without long-term current use of insulin ([facility]) Take 1 Tablet by mouth daily. 90 Tablet 025 Active apixaban (ELIQUIS) 5 mg Oral TabletIndications :Typical atrial flutter (HCC),Cerebrovasc ular accident, old Take 1 Tablet by mouth 2 times daily. 180 Tablet 025 Active dulaglutide (TRULICITY) 0.75 mg/0.5 mL SubQ Pen Injector Subcutaneous (Inject under the skin) 0.5 mL once a week. 2 mL 2 Active Additional Information Patient not taking.Reported on 04/12/2025 metFORMIN (GLUCOPHAGE) 1,000 mg Oral TabletIndications :Type 2 diabetes mellitus with stage 2 chronic kidney disease, with long-term current use of insulin ([facility]) TAKE 1 TABLET BY MOUTH 2 TIMES [...] 4 Capsule 025 Active DEXCOM G7 SENSOR [facility] DeviceIndications :Type 2 diabetes mellitus with stage 2 chronic kidney disease, with long-term current use of insulin ([facility]) 1 EACH BY [facility].(NON-DRUG; COMBO ROUTE) ROUTE EVERY 10 DAYS. 3 Each Active Additional Information Patient not taking.Reported on 04/12/2025 SYMBICORT 160-4.5 mcg/actuation Inhl HFA Aerosol Inhaler Active DEXCOM G7 SENSOR [facility] DeviceIndications :Type 1 diabetes mellitus with 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, with senior care current use of insulin pump ([facility]) 1 Each by [facility].(Non-Drug; Combo Route) route every 10 days. Dx code: E10.9 1 Each 025 Active DEXCOM G7 SOLAR PANEL [facility]CHNIC[facility] MiscIndications:T ype 1 diabetes mellitus with 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, with extermination supervisor current use of insulin pump ([facility]) 1 Each by [facility].(Non-Drug; Combo Route) route continuous. Use as directed for continuous blood glucose monitoring. 1 Each Active amitriptyline (ELAVIL) 50 mg Oral TabletIndications :Fibromyalgia TAKE 1 TABLET BY MOUTH NIGHTLY. 30 Tablet 2 Active tirzepatide (MOUNJARO) 5 mg/0.5 mL SubQ Pen InjectorIndicatio ns:Type 2 diabetes mellitus with stage 2 chronic kidney disease, without long-term current use of insulin ([facility]) Subcutaneous (Inject under the skin) 5 mg once a week. 2 mL 5 025 2024 Discontinued(C ost of medication) amitriptyline (ELAVIL) 50 mg Oral TabletIndications :Fibromyalgia TAKE 1 TABLET BY MOUTH NIGHTLY. 30 Tablet 2 025 2024 Discontinued Active Problems Patient Care Coordination No te Formatting of this note migh t be different from the original. [facility] audit completed by Purnima Caballero RN on 03/19/2023. Problem Noted Date Diagnosed Date Abnormal weight gain 04/12/2025 Assessment & Plan (04/12/2025 4:45 PM EDT): Orders: ADRENOCORTICOTROPIC HORMONE -REF LAB; Future CORTISOL; Future DEHYDROEPIANDROSTERONE SULFATE; Future CORTISOL SALIVA-REF LAB; Future CORTISOL SALIVA-REF LAB; Future Dyslipidemia associated with type 2 diabetes lenora litus 04/12/2025 Assessment & Plan (04/12/2025 4:45 PM EDT): Orders: LIPID PANEL REFLEX; Future Encounter for long-term (current) use of medicat ions 04/12/2025 Assessment & Plan (04/12/2025 4:45 PM EDT): Orders: COMPREHENSIVE METABOLIC PANEL; Future VITAMIN B12 LEVEL; Future Essential hypertension 04/12/2025 Assessment & Plan (04/12/2025 4:45 PM EDT): Type 2 diabetes mellitus wit h hyperglycemia, without long-term current use of insulin 04/12/2025 Assessment & Plan (04/12/2025 4:45 PM EDT): Orders: AMB REFERRAL TO DIABETIC EDUCATION PROGRAM C-PEPTIDE; Future FRUCTOSAMINE; Future MICROALBUMIN/CREATININE RATIO URINE; Future Type 2 diabetes mellitus wit h diabetic polyneuropathy, with long-term current use of insulin 04/12/2025 Assessment & Plan (04/12/2025 4:45 PM EDT): Orders: AMB REFERRAL TO DIABETIC EDUCATION - DIABETIC EQUIPMENT EDUCATION Diabetic polyneuropathy asso ciated with type 2 diabetes mellitus 04/12/2025 Assessment & Plan (04/12/2025 4:45 PM EDT): ADAMS (obstructive sleep apnea) 04/12/2025 Assessment & Plan (04/12/2025 4:45 PM EDT): Microalbuminuric diabetic nephropathy 04/12/2025 Assessment & Plan (04/12/2025 4:45 PM EDT): Ventral hernia without obstruction or gangrene 1 Assessment & Plan (04/22/2024 2:16 PM EDT): D/w pt No need to treat Unlikely to cause an acute problem If becoming more symptomatic can consider repair Should not impact her upcoming [facility] Vitamin D deficiency 04/13/2023 Assessment & Plan (04/12/2025 4:45 PM EDT): Assessment & Plan (10/27/2024 2:34 PM EDT): [...] 12/18/2016 Hyperlipidemia associated with type 2 diabetes m matthew 12/13/2015 Assessment & Plan (10/27/2024 2:34 PM [...] patients risk of GI bleeding, risk of TABLE OPERATOR bleeding or other medication / medical [...] 09/12/2015 CVA (cerebral vascular accid ent) ([facility]); 09/2015; MRI + of multiple small infarcts [...] Encounters Date Type Department Care Team Description 04/17/[address] [address] Domo Odonnell MD Medication Refill 04/12/2025 12:40 PM EDT Office Visit [facility] Diabetes [address] [address] Betsy Garcia APRN Type 2 diabetes mellitus with hyperglycemia, without [...] Type 1 diabetes mellitus with 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, with extermination supervisor current use of insulin pump (HCC) 02/09/[address] [address] Danielle Perez RMA 01/26/[address] [address] Domo Odonnell MD from Last 3 Months Immunizations Immunization Administration [...] 0.6 oz pur e alcohol) [facility] Utilities Answer Date Recorded In the past 12 months has [employer] electric, gas, oil, or water [employer] threatened to shut off services in your home? Yes 11/26/2023 Overall Financial Resource Strain (CARDIA) Answe r Date Recorded How hard is it for you to pa y for the very basics like food, housing, medical care, and heating? Not hard at all 11/26/2023 PHQ-2 Answer Date Recorded PHQ-2 Total Score 5 03/30/2024 [facility] [place] of Occupat ional Health - Occupational Stress [...] any time in the past 12 m [facility], were you homeless or living in a [place] facility (including now)? No 11/26/2023 Sexually Active Control [...] Pulse 72 04/12/2025 12:26 PM EDT Temperature 36.2 C (97.2 F) 10/27/2024 1:56 PM EDT Respiratory Rate 16 04/12/2025 12:26 PM EDT Oxygen Saturation 98% 10/27/2024 1:56 PM EDT Inhaled Oxygen Concentration - - Weight 119.7 kg (264 lb) 04/12/2025 12:26 PM EDT Height 157.5 cm (5' 2 ) 04/12/2025 12:26 PM EDT Body Mass Index 48.29 04/12/2025 12:26 PM EDT Plan of Treatment Upcoming Encounters Date Type Department Care Team (Late st Contact Info) Description 05/24/2025 12:00 PM EST Office Visit [facility] [address] [place] [address] Betsy Garcia, JANET [address] [address] Health Maintenance Due Date Last [...] < 30 General 48.4(04/12/20 12:26 PM EDT) No Belinda Yeboah MA Maintain [...] OFFICE Blood VENOUS BLOOD / Unknown 02/08/2025 Historical Provider IMMUNOLOGY ORDERABLES Final Result [facility]P OFFICE * THYROID STIMULATING HORMONE (TSH)-QUEST (02/08/2025) TSH 2.370 0.400 - 4.500 MCIU/ML SEP OFFICE 02/08/2025 Historical Provider QUEST-CHEMISTRY ORDERABLES F inal Result SEP OFFICE * HCV ANTIBODY SCREEN W/ REFLEX (02/08/2025) HCV Ab neg SEP OFFICE Blood VENOUS BLOOD / Unknown 02/08/2025 Historical Provider HEMATOLOGY ORDERABLES Final Result SEP OFFICE * HEMOGLOBIN A1C (02/08/2025) A1c 8.3 SEP OFFICE Blood VENOUS BLOOD / Unknown 02/08/2025 Historical Provider CHEMISTRY ORDERABLES Final R esult SEP OFFICE * HM MAMMOGRAPHY (01/20/2025) 01/20/2025 Historical Provider HEALTH MAINTENANCE Final Res ult SEP OFFICE * (ABNORMAL) LIPID PANEL REFLEX (10/27/2024 2:35 PM EDT) Cholesterol 155 <200 mg/dL 10/27/2024 8:40 PM EDT [facility] Comment: < 200 Desirable 200 - 239 Borderline High >= 240 High Triglyceride 186(H) <150 mg/dL 10/27/2024 8:40 PM EDT [facility] Comment: < 150 Normal 150 - 199 Borderline High 200 - 499 High >= 500 Very High HDL 35(L) >=40 mg/dL 10/27/2024 8:40 PM EDT [facility] Comment: > 60 Optimal 40 - 60 Acceptable < 40 Low LDL Calculated 88 <100 mg/dL 10/27/2024 8:40 PM EDT [facility] Comment: < 100 Optimal 100 - 129 Near or above optimal 130 - 159 Borderline High 160 - 189 High >= 190 Very High The National Institutes of Health (NIH) equation is used for all lipid panels that report calculated LDL (LDL-C). Non-HDL-C Calculated 120 <=129 mg/dL 10/27/2024 8:40 PM EDT [facility] Comment: <130 Desirable 130-159 Above Desirable 160-189 Borderline High 190-219 High >= 220 Very High Fasting Specimen? Yes None 025 8:40 PM EDT [facility] Blood VENOUS BLOOD / Unknown Venipuncture / Unknown 10/27/2024 2:35 PM EDT 10/27/2024 2:35 PM EDT us Domo Odonnell MD CHEMISTRY ORDERABLES Final Re sult [facility] [address] [facility] , [address] [place] [id number] * (ABNORMAL) MICROALBUMIN/CREATININE RATIO URINE (10/27/2024 2:35 [...] Result [facility] [address] [facility] , [place] [address] * (ABNORMAL) COMPREHENSIVE METABOLIC PANEL (10/27/2024 2:35 [...] 10/27/2024 8:40 PM EDT [facility] Bili Total 0.4 0.2 - 1.3 mg/dL 10/27/2024 8:40 PM EDT [facility] ALT 9 <=41 U/L 10/27/2024 8:40 PM EDT [facility] AST 22 <=40 U/L 10/27/2024 8:40 PM EDT [facility] Alk Phos 70 36 - 123 U/L 10/27/2024 8:40 PM EDT [facility] eGFR (CKD-EPIcr 2020) 68 >=60 mL/min/1.7 3 m2 10/27/2024 8:40 PM EDT [facility] Comment:Estimated GFR was ca lculated using the CKD-EPIcr (2020) equation refit without race. The equation is recommended by the National Kidney Foundation - [place] [employer] of Nephrology Task Force. Blood VENOUS BLOOD / Unknown Venipuncture / Unknown 10/27/2024 2:35 PM EDT 10/27/2024 2:35 PM EDT Domo Odonnell MD CHEMISTRY ORDERABLES Final Re sult Performing Organization Address [facility] Co de Phone Number [facility] [address] [facility], [place] [address] * [facility] EGD-COLONOSCOPY (08/26/2017 8:30 AM EST) 08/26/2017 8:30 AM EST Impressions [facility] - 08/26/2017 9:03 AM EST Plan: Colonoscopy in 5 years This section is an excerpt of the full report. 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
--- OUTSIDE RECORDS SUMMARY | 2025-04-19 12:48 | XMS_ITS | Clinical Summary ---
Author Organization [facility] Address [address] [place] [address] Care Team Providers Care Dramatic Teacher Name Role Phone Domo Odonnell MD Primary Care Provider [phone] Festus Alan MD Unavailable [phone] Festus Alan MD Unavailable [phone] Allergies Active Allergy Reactions Criticality Noted [...] 07/26/19 21 Active Blood Glucose Monitoring Suppl (Action Online PublishingStyle glucose monitoring) kit Use as directed to check blood sugar 07/24/19 18 Active fluorouracil (Efudex) 5 % cream Apply topically twice a day. 03/11/20 19 Active glucose blood (Server Densityuch Ultra) test strip USE TO TEST BLOOD [...] tablet 03/04/20 Active Lancets (OneTouch Delica Plus [id number]) misc SUBCUTANEOUS (INJECT UNDER THE SKIN) 1 [...] (2 of 2 - PCV) 12/19/2018 12/19/2017 [id number] Vaccine (1 - season) 2025 [facility]-Influenza Vaccine [...] this topic Medical Devices Implanted Type Area Church Administrator Device Identifier Shelf Expiration Date Model / Serial / Lot Closure Device Vip Angioseal 8 Fr - [id number] Implanted:Qty: 1 on 02/27/2021 by Festus Alan MD at [facility] [id number] 09/02/2021 [id number] / / [id number] Insurance [facility] [place] [address] Care Teams Dramatic Teacher Relationship Specialty Start Date End Date Domo Odonnell MD [address] [place] [address] PCP - General 11/16/20 Festus Alan MD [address] [place] [address] Surgeon Neurosurgery 01/25/21 Festus Alan MD [address] [place] [address] Surgeon Neurosurgery 03/15/21
--- OUTSIDE RECORDS SUMMARY | 2025-04-19 12:48 | XMS_ITS | Encounter Summary ---
Author Organization Healthcare Address [address] [place] [address] Care Team Providers Care Service Mechanic Name Role Phone Domo Odonnell MD Primary Care Provider Festus Alan MD Unavailable [phone] Festus Alan MD Unavailable Encounter Details Date Type Department Care Team (Late st Contact Info) Description 11/27/2020 [facility] [address] [place] [address] Festus Alan MD [address] [place] [address] Social History Tobacco Use Types [...] on filedocumented in this encounter Care Teams Service Mechanic Relationship Specialty Start Date End Date Domo Odonnell MD [address] [place] [id number] PCP - General 11/16/20 Festus Alan MD [address] [place] [address] Surgeon Neurosurgery 01/25/21 Festus Alan MD [address] [place] [address] Surgeon Neurosurgery 03/15/21 documented as of this encounter
--- NOTE | 2025-04-19 13:30 | CT_ITS ---
FINAL REPORT TECHNIQUE: Thin section axial images were obtained through the lungs using a low-dose technique per lung cancer screening protocol. Reconstruction images were obtained using the axial data. Exam was performed using dose reduction technique. CLINICAL HISTORY: lung cancer screening FORMER SMOKER QUIT 9 YEARS AGO 4PPD X23 YEARS COMPARISON: None FINDINGS: CTDLvol: 2.90 DLP: 92.21 Former smoker 92 pack year history Lungs: There is a 7 mm medial right lower lobe nodule. Evidence of granulomatous disease. The lungs are otherwise clear. No suspicious nodules. Lymph nodes: No thoracic lymphadenopathy. Mediastinum: Heart size is normal. Pleura/pericardium: No pleural or pericardial effusion. Other: Limited images of the upper abdomen demonstrate a lobulated appearance to the spleen which could be related to prior infarcts. IMPRESSION: 7 mm medial right lower lobe nodule. Lung RADS: 3 Recommendation: Six-month follow-up low-dose chest CT Reviewed, Interpreted and Dictated by Felicita Chatterjee MD Transcribed by Gladis Rolon Authenticated and [facility]
== END 2025-04-19 23:59 | disposition home or self-care (01) ==
LOC: RAD 12:46
PROVIDERS: PCP Family Medicine; Visit Provider Internal Medicine Pulmonary Disease
DX: Z12.2 Encounter for screening for malignant neoplasm of respiratory organs (principal); R91.1 Solitary pulmonary nodule; Z87.891 Personal history of nicotine dependence
CPT/HCPCS: 71271

== ENCOUNTER 2025-04-21 10:35 | Outpatient (CLI) | payer MEDICAID, SELFPAY ==
--- OUTSIDE RECORDS SUMMARY | 2025-04-12 12:40 | XMS_ITS | Encounter Summary ---
Author Organization [place] [address] Care Team Providers Care Civil Engineer Helper Name Role Phone Domo Odonnell MD Primary Care Provider [phone] Lali Hyde APRN Unavailable [phone] Reason for Referral * Consultation (Routine) - Pending Review Specialty Diagnoses / Procedures Referred By Bryce torres Referred To Contact Diabetes Services Diagnoses Type 2 diabetes mellitus with diabetic polyneuropathy, with long-term current use of insulin (HCC) Betsy Garcia APRN [address] [place], [place] [id number] Phone: tel: fax: Referral ID Status Reason Start Date Expiration Date V isits Requested Visits Authorized [id number] Pending Review 04/12/2025 04/12/2026 99 99 Question Answer Patient to attend class today? Yes Type Continuous Glucose Monitor Type of Education Personal CGM Initiation - Dexcom G7 * Consultation (Routine) - Pending Review Specialty Diagnoses / Procedures Referred By Bryce torres Referred To Contact Diabetes Services Diagnoses Type 2 diabetes mellitus with hyperglycemia, without long-term current use of insulin (HCC) Betsy Garcia APRN [address] [place] [phone] Phone: tel: fax: Referral ID Status Reason Start Date Expiration Date V isits Requested Visits Authorized [id number] Pending Review 04/12/2025 04/12/2026 99 99 Question Answer Patient to attend class today? No Type Type 2- GROUP- Assessment, Group classes and Dietitian (MNT) (10 hours is standard) Reason for Visit * Reason Comments Diabetes type 2 * Consultation (Routine) - Authorization Not Needed Specialty Diagnoses / Procedures Referred By Contac t Referred To Contact Diagnoses Type 2 diabetes mellitus with other specified 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 (HCC) Precordial pain [facility] [address] [place] [phone] Phone: tel: fax: Referral ID Status Reason Start Date Expiration Date Visits Requested Visits Authorized [id number] Authorization Not Needed 11/15/2024 11/15/2025 1 1 Encounter Details Date Type Department Care Team (Latest Contact Info) Description 04/12/2025 12:40 PM EDT Office Visit [facility] Diabetes [address] [phone] Betsy Garcia APRN [address] [place] [phone] Type 2 diabetes mellitus with hyperglycemia, without long-term current use of insulin (HCC) (Primary Dx); Abnormal weight gain; Dyslipidemia associated with type 2 diabetes mellitus (HCC); Encounter for long-term (current) use of medications; Essential hypertension; Vitamin D deficiency; Type 2 diabetes mellitus with diabetic polyneuropathy, with long-term current use of insulin (HCC); Diabetic polyneuropathy associated with type 2 diabetes mellitus (HCC); ADAMS (obstructive sleep apnea); Microalbuminuric diabetic nephropathy (HCC); Type 1 diabetes mellitus with 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, 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 pump (HCC) Social History Tobacco Use Types Packs/Day Years Used Date Smoking Tobacco: Former Cigarettes 4 33.2 0 07/06/1982 - 09/09/2015 Smokeless Tobacco: Never Alcohol Use Standard Drinks/Week Comments No 0 (1 standard drink = 0.6 oz pur e alcohol) [facility] Utilities Answer Date Recorded In the [...] Date Recorded PHQ-2 Total Score 5 03/30/2024 [facility] - Occupational Stress Questionnaire Answer Date [...] any time in the past 12 m [facility], were you homeless or living in a long-term (including now)? No 11/26/2023 Sexually Active Control Partners Comments Not Currently Comments No Sex and Gender Information Value Date Recorded Sex Assigned at Not on file Legal Sex Female 11:07 PM EDT Gender Identity Not on file Sexual Orientation Not on file documented as of this encounter Last Filed Vital Signs Vital Sign Reading Time Taken Comments Blood Pressure 118/68 04/12/2025 12:26 PM EDT Pulse 72 04/12/2025 12:26 PM EDT Temperature - - Respiratory Rate 16 04/12/2025 12:26 PM EDT Oxygen Saturation - - Inhaled Oxygen Concentration - - Weight 119.7 kg (264 lb) 04/12/2025 12:26 PM EDT Height 157.5 cm (5' 2 ) 04/12/2025 12:26 PM EDT Body Mass Index 48.29 04/12/2025 12:26 PM EDT documented in this encounter Functional Status * Is the [...] Refills Last Filled Start Date End Date DEXCOM G7 STENCIL TYPIST [facility] MiscIndications:Ty pe 1 diabetes mellitus with 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, with halfway current use of insulin pump (HCC) 1 Each by [facility].(Non-Drug; Combo Route) route continuous. Use as directed for continuous blood glucose monitoring. 1 Each 04/12/2025 DEXCOM G7 SENSOR [facility] DeviceIndications: Type 1 diabetes mellitus with 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, with halfway current use of insulin pump (HCC) 1 Each by [facility].(Non-Drug; Combo Route) route every 10 days. Dx code: E10.9 1 Each 04/12/2025 documented in this encounter Progress Notes * Betsy Garcia APRN - 04/12/2025 12:40 PM EDTAssociated Problem(s): Abnormal weight gain Orders: ADRENOCORTICOTROPIC HORMONE -REF LAB; Future CORTISOL; Future DEHYDROEPIANDROSTERONE SULFATE; Future CORTISOL SALIVA-REF LAB; Future CORTISOL SALIVA-REF LAB; Future * Betsy Garcia APRN - 04/12/2025 12:40 PM EDTAssociated Problem(s): Dyslipidemia associated with type 2 diabetes mellitus (HCC) Orders: LIPID PANEL REFLEX; Future * Betsy Garcia APRN - 04/12/2025 12:40 PM EDTAssociated Problem(s): Encounter for long-term (current) use of medications Orders: COMPREHENSIVE METABOLIC PANEL; Future VITAMIN B12 LEVEL; Future * Betsy Garcia APRN - 04/12/2025 12:40 PM EDTAssociated Problem(s): Essential hypertension * Betsy Garcia APRN - 04/12/2025 12:40 PM EDTAssociated Problem(s): Vitamin D deficiency * Betsy Garcia APRN - 04/12/2025 12:40 PM EDTAssociated Problem(s): Type 2 diabetes mellitus with hyperglycemia, without long-term current use of insulin (HCC) Orders: AMB REFERRAL TO DIABETIC EDUCATION PROGRAM C-PEPTIDE; Future FRUCTOSAMINE; Future MICROALBUMIN/CREATININE RATIO URINE; Future * Betsy Garcia APRN - 04/12/2025 12:40 PM EDTAssociated Problem(s): Type 2 diabetes mellitus with diabetic polyneuropathy, with long-term current use of insulin (HCC) Orders: AMB REFERRAL TO DIABETIC EDUCATION - DIABETIC EQUIPMENT EDUCATION * Betsy Garcia APRN - 04/12/2025 12:40 PM EDTAssociated Problem(s): Diabetic polyneuropathy associated with type 2 diabetes mellitus (HCC) * Betys Garcia APRN - 04/12/2025 12:40 PM EDTAssociated Problem(s): ADAMS (obstructive sleep apnea) * Betsy Garcia APRN - 04/12/2025 12:40 PM EDTAssociated Problem(s): Microalbuminuric diabetic nephropathy (HCC) * Betsy Garcia APRN - 04/12/2025 12:40 PM EDT Subjective: Patient ID: Judi Nova is a 55 y.o. female with a history of Diabetes and associated diagnosis as listed. Chief Complaint Patient presents with Diabetes type 2 HPI The patient is here for initial consultation for Diabetes Type II per request of her neurologist. The patient states she was diagnosed with gestational diabetes about 30 years ago and then was pre diabetic after that. She thinks she was diagnosed with actual diabetes in 2016 after she had a CVA. She was started on some oral medications and was started on basal insulin at one point but stopped it due to not wanting injections and weight gain. Reports no family history of Diabetes that she is aware of. The patient farxiga 10 mg in the am, trulicity 0.75 mg once a week and has had about 3 doses so far(mounjaro not covered), metformin 1000 mg twice a daay. Testing/Review of blood Sugars: reports she has the DEXCOM but does not want to stick herself to put it on. She reports doing fsbg 2-3 times a week at different times and are in the 200s to 300s. Episodes of Hypoglycemia: reports not that she is aware of. Diabetic Medications: Past: basal insulin; Current: trulicity, metformin and farxiga Dietary Habits: she has one main meal and snacks in between, eats 8-10 times a day in small amounts. Physical Activity: she is walking 5 times a week for about 15-20 minutes. Weight Management: reports has 84 lbs in the last 3 years as she changed her eating pattern. Wt Readings from Last 3 Encounters: 04/12/25 264 lb (119.7 kg) 10/27/24 264 lb (119.7 kg) 04/22/24 273 lb (123.8 kg) Knowledge/Classes of Diabetes Management: reports no formal diabetes education in the past. Past Medical History[1] Medications ordered prior to the current encounter[2] Patients past medical, family and social histories were reviewed and updated. There were no changesexcept as noted. Review of Systems Constitutional: Positive for fatigue. HENT: Positive for drooling, ear pain, rhinorrhea and trouble swallowing. Eyes: Positive for itching. Respiratory: Positive for shortness of breath. Snores, not using her CPAP Cardiovascular: Positive for leg swelling. Gastrointestinal: Positive for nausea. Endocrine: Positive for cold intolerance, heat intolerance and polydipsia. Genitourinary: Positive for difficulty urinating, frequency and urgency. Musculoskeletal: Positive for arthralgias, back pain, myalgias, neck pain and neck stiffness. Allergic/Immunologic: Positive for food allergies. Neurological: Positive for dizziness, weakness, light-headedness and numbness. Hematological: Bruises/bleeds easily. All other systems reviewed and are negative. Objective: Vitals: 04/12/25 1226 BP: 118/68 Pulse: 72 Resp: 16 Weight: 264 lb (119.7 kg) Height: 5' 2 (1.575 m) Body mass index is 48.29 kg/m??. Physical Exam Vitals reviewed. Constitutional: Appearance: Normal appearance. She is obese. Comments: Morbid obesity HENT: Head: Normocephalic. Nose: Nose normal. Mouth/Throat: Comments: edentulous Eyes: Conjunctiva/sclera: Conjunctivae normal. Neck: Comments: Jackson hump. Cardiovascular: Rate and Rhythm: Normal rate. Pulmonary: Effort: Pulmonary effort is normal. Abdominal: General: There is no distension. Musculoskeletal: General: Normal range of motion. Cervical back: Normal range of motion. Right lower leg: Edema present. Left lower leg: Edema present. Neurological: Mental Status: She is alert and oriented to person, place, and time. Psychiatric: Mood and Affect: Mood normal. Behavior: Behavior normal. Thought Content: Thought content normal. Judgment: Judgment normal. Lab Results Component Value Date CREATININE 0.97 10/27/2024 CREATININE 0.93 03/30/2024 CREATININE 0.9 07/03/2023 Lab Results Component Value Date ALT 9 10/27/2024 ALT 15 03/30/2024 ALT 16 04/10/2023 Lab Results Component Value Date AST 22 10/27/2024 AST 21 03/30/2024 AST 21 04/10/2023 Lab Results Component Value Date HGBA1C 8.3 02/08/2025 HGBA1C 10.0 (A) 10/27/2024 HGBA1C 8.1 (H) 03/30/2024 No results found for: FRUCTOSAMINE Lab Results Component Value Date CHOLESTEROL 155 10/27/2024 CHOLESTEROL 139 04/10/2023 CHOLESTEROL 128 09/12/2022 Lab Results Component Value Date HDL 35 (L) 10/27/2024 HDL 34 (L) 04/10/2023 HDL 40 09/12/2022 Lab Results Component Value Date LDLCALC 88 10/27/2024 LDLCALC 72 04/10/2023 LDLCALC 63 09/12/2022 Lab Results Component Value Date TRIG 186 (H) 10/27/2024 TRIG 197 (H) 04/10/2023 TRIG 145 09/12/2022 Lab Results Component Value Date MICROALBCR 42 (H) 10/27/2024 Lab Results Component Value Date TSH 2.370 02/08/2025 TSH 3.020 07/03/2023 TSH 1.520 04/15/2019 No results found for: FREET4 No components found for: VITD25 Assessment & Plan Abnormal weight gain Orders: ADRENOCORTICOTROPIC HORMONE -REF LAB; Future CORTISOL; Future DEHYDROEPIANDROSTERONE SULFATE; Future CORTISOL SALIVA-REF LAB; Future CORTISOL SALIVA-REF LAB; Future Dyslipidemia associated with type 2 diabetes mellitus (HCC) Orders: LIPID PANEL REFLEX; Future Encounter for long-term (current) use of medications Orders: COMPREHENSIVE METABOLIC PANEL; Future VITAMIN B12 LEVEL; Future Essential hypertension Vitamin D deficiency Type 2 diabetes mellitus with hyperglycemia, without long-term current use of insulin (HCC) Orders: AMB REFERRAL TO DIABETIC EDUCATION PROGRAM C-PEPTIDE; Future FRUCTOSAMINE; Future MICROALBUMIN/CREATININE RATIO URINE; Future Type 2 diabetes mellitus with diabetic polyneuropathy, with long-term current use of insulin (HCC) Orders: AMB REFERRAL TO DIABETIC EDUCATION - DIABETIC EQUIPMENT EDUCATION Diabetic polyneuropathy associated with type 2 diabetes mellitus (HCC) ADAMS (obstructive sleep apnea) Microalbuminuric diabetic nephropathy (HCC) Type 1 diabetes mellitus with 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, 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 Dx code: E10.9 DEXCOM G7 STENCIL TYPIST Misc Misc; 1 Each by Misc.(Non-Drug; Combo Route) route continuous. Use as directed for continuous blood glucose monitoring. HEMOGLOBIN A1C; Future Assessment and Recommendations: DM Type 2: Uncontrolled Discussed options to gain and maintain control. -Patient would benefit from further education at this time, will order. -Test sugars at fasting and 2 hours after lunch or last meal of the day. -start sensor. - Call office if having low blood sugars or other issues. Weight Management Assessment: Morbidly ObeseAdvised decreased calories and increased physical activity as tolerated. Will get full set of lab work up with salivary cortisols. Blood Pressure Assessment: History of HTN, BP at Goal. Continue current treatment Lipid Assessment: Mixed hyperlipidemia LDL Goal less than 55 given hx of CVA in past. In , LDL and trigs above goal, HDL is low. Will Continue current treatment repeat at follow up and increase therapy if LDL remains above goal. Aspirin Therapy: Continue ASA 81mg per other provider. Smoking Status: Previous Smoker Renal Assessment: Microalbuminuria. Pos screen , on [place]; Will repeat Microalbumin creatine ratio yearly. Foot Assessment: High risk . Patient has Peripheral Neuropathy as evidenced with numbness and burning of her feet at night. Eye Exam: 04/2024. Vit d def: level good and is on drisdol once weekly Hx CVA: defer to neurology Return in about 6 weeks (around 05/24/2025) for Diabetes Type II. 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 Max dose is 8 tabs daily (4000 mg). 200 Tab 12 allopurinoL (ZYLOPRIM) 300 mg Oral Tablet TAKE 1 TABLET BY MOUTH DAILY. 100 Tablet 1 amitriptyline (ELAVIL) 50 mg Oral Tablet TAKE 1 TABLET BY MOUTH NIGHTLY. 30 Tablet 2 apixaban (ELIQUIS) 5 mg Oral Tablet Take 1 Tablet by mouth 2 times daily. 180 Tablet 1 aspirin 81 mg Oral Tablet, Chewable Take 1 Tab by mouth daily. Blood-Glucose Meter ([employer] ULTRA2 METER) [facility] USE DIRECTED TO CHECK BLOOD SUGAR 100 Each0 dapagliflozin propanediol (FARXIGA) 10 mg Oral Tablet Take 1 Tablet by mouth daily. 90 Tablet 1 DULoxetine (CYMBALTA) 60 mg Oral Capsule, Delayed Release(E.C.) TAKE 1 CAPSULE BY MOUTH 2 TIMES DAILY 180 Capsule 1 ergocalciferol (DRISDOL) 1,250 mcg (50,000 unit) Oral Capsule TAKE 1 CAPSULE BY MOUTH ONCE A WEEK. 4 Capsule 0 famotidine (PEPCID) 40 mg Oral Tablet TAKE 1 TABLET BY MOUTH 2 TIMES DAILY. 200 Tablet 1 FEROSUL 325 mg (65 mg iron) Oral Tablet TAKE 1 TABLET BY MOUTH DAILY (WITH BREAKFAST). 30 Tablet 1 fluticasone propionate (FLOVENT HFA) 110 mcg/actuation Inhl HFA Aerosol Inhaler Inhale 2 Puffs intothe lungs 2 times daily. 12 g 2 lancets ([email or web address].[email or web address] DELICA PLUS LANCET) 30 gauge [facility] Misc 1 EACH BY [facility].(NON- DRUG; COMBO ROUTE) ROUTE DAILY. 100 Each 0 lansoprazole (PREVACID) 30 mg Oral Capsule, Delayed Release(E.C.) Take 1 Capsule by mouth daily. 90Capsule 1 lisinopriL (PRINIVIL;ZESTRIL) 10 mg Oral Tablet TAKE 1 TABLET BY MOUTH DAILY. 100 Tablet 2 loratadine (CLARITIN) 10 mg Oral Tablet Take 1 Tablet by mouth daily as needed. 90 Tablet 1 metFORMIN (GLUCOPHAGE) 1,000 mg Oral Tablet TAKE 1 TABLET BY MOUTH 2 TIMES DAILY (WITH MEALS). 200 Tablet 1 metoprolol succinate (TOPROL-XL) 50 mg Oral Tablet Sustained Release 24 hr TAKE 1 TABLET BY MOUTH DAILY. 100 Tablet 1 Miscellaneous Medical Supply [facility] Transfer bench for shower 1 Each 0 ONETOUCH ULTRA TEST [facility] Strip USE TO TEST BLOOD SUGAR ONCE DAILY 100 Strip 0 pravastatin (PRAVACHOL) 40 mg Oral Tablet TAKE 1 TABLET BY MOUTH ONCE DAILY 90 Tablet 1 SYMBICORT 160-4.5 mcg/actuation Inhl HFA Aerosol Inhaler torsemide (DEMADEX) 20 mg Oral Tablet Take 1 Tablet by mouth daily. 90 Tablet 1 VENTOLIN HFA 90 mcg/actuation Inhl HFA Aerosol Inhaler INHALE 1 PUFF INTO THE LUNGS EVERY 6 HOURS NEEDED FOR WHEEZING 18 g 2 DEXCOM G7 SENSOR [facility] Device 1 EACH BY [facility].(NON-DRUG; COMBO ROUTE) ROUTE EVERY 10 DAYS. (Patient not taking: Reported on 04/12/2025) 3 Each 0 dulaglutide (TRULICITY) 0.75 mg/0.5 mL SubQ Pen Injector Subcutaneous (Inject under the skin) 0.5 mL once a week. (Patient not taking: Reported on 04/12/2025) 2 mL 2 No current facility-administered medications on file prior to visit. * Aiyana Martinez RN - 04/12/2025 12:40 PM EDT DEXCOM G7 INITIATION PROGRESS NOTES Start time: 1:15 pm End time: 1:45 pm The following education was completed: Sensor Glucose vs. Meter Glucose (wearing sensor does not replace fingerstick SMBG) Training done according to corsage maker???s guidelines Insertion/removal of sensor - 10 day wear, 12 hour alvarado period Calibration of system Set/Review alarm settings Daily use Interpreting Data - trend arrows & graphs Troubleshooting Site & Alarms Upload/Review Reports / Clarity setup When to follow up with healthcare team; when to call Dexcom Customer Care Site selection, rotation, preparation Basic Care: removing, cleaning, storage, charging Patient Pre-Training: Product User Guide Programming Settings Entered: Glucose Limits: Low 70 mg/dL Snooze 15 min High 300 mg/dL Snooze 120 min ; 1st delay alarm: 60 minutes Rise Rate: OFF (off) Fall Rate: OFF (off) Out of Range: 20 minutes COMMENTS: Patient has sensor and reader at home, but has not wanted to start it for fear of needle.She does fingersticks twice a week. Discussed having to only change sensor every 10 days and avoiding the multiple fingersticks. Patient tolerated sensor placement well. Her also uses Dexcom G7. * Aiyana Martinez RN - 04/12/2025 12:40 PM EDT Person-Centered DSMES Comprehensive Assessment Form Start Time: 1:45 pm End Time: 2:25 pm Narrative/Medication Instruction: Met with participant following new patient diabetes visit with JANET Trinidad. Action oriented behavioral change goal(s)/DSMES follow-up plan: Will attend individual diabetes education classes, due to she does not like to talk in groups or like group setting. Patient will call back to schedule education via mychart video visit. Participant successfully completed self-assessment form, to be scanned into chart and attached to this encounter. Assessment form reviewed & discussed with patient. Patient was receptive to education today. Type 2 DM initial assessment completed. Contents of Type 2 DM assessment booklet reviewed. Repeated and verified verbal order from Betsy Garcia APRN / Aiyana Martinez RN: 1) Start Dexcom G7 today with sample sensor and reader 2) Complete Type 2 Initial Assessment 3) Increase Trulicity to 1.5 mg weekly after last dose of 0.75 mg dose. Additional teaching includes: Reviewed use of a blood glucose monitor including obtaining a sample, handwashing, logging results,safe lancet disposal, storage and disposal of supplies, and obtaining supplies. Started on Dexcom G7 today. Trulicity Instruction Instructed patient on use of Trulicity, including method of action, potential side effects, dosing schedule, site selection/rotation, how to use pen/give injection, storage, and safe disposal. Reviewed hypoglycemia detection, prevention, and treatment. Take last dose of 0.75 mg and then increase to 1.5 mg once a week until next office visit if tolerating. Instructed to stop taking Trulicity and call the office if experiencing severe nausea, vomiting, or abdominal pain. Instructed on hypoglycemia prevention, detection, treatment with 15 grams of fast acting carbohydrate for blood sugar below 70, treat with 30 grams of fast acting carbohydrate if blood sugar is below50. Retest blood sugar in 15 minutes, if below 70 retreat. Follow-up hypoglycemia episodes with a meal or snack. Provided handout on hypoglycemia signs/symptoms, prevention and treatment. Reviewed recommendation of 30-45 grams of carbohydrates per meal for most women and 15 grams for snack. Provided instruction on and provided handout on basic carbohydrate containing foods, recommended carb intake per meal/snack and how to determine carb amount via a food label. Diabetes Self-Management Education and Support Participant Record/Learning Needs Assessment/Scale: 1= Needs Instruction 2= Needs Review 3= Comprehends Blank Points 4= Demonstrates Understanding/Competency NC= Not Covered N/A= Not Applicable 1- Diabetes Distress and Support- Recognize diabetes distress and be able to identify support options 1- Lifestyle and Health Coping- Describe lifestyle and healthy coping strategies to promote diabetes self-management 1- Diabetes Pathophysiology- Define diabetes and identify own type of diabetes; list treatment options 1- Chronic Complications- Define the relationship of blood glucose levels to halfway 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s of diabetes and screening and preventative measures 1- Healthy Eating- Recognize basic nutrition and label reading. Identify how carbohydrates impact blood sugar levels. Develop strategies to cook and/or dine out healthily. 1- Being Active- State effect of exercise on blood glucose levels and benefits of physical activity 1- Taking Medications- State effect of diabetes medicines on diabetes; name diabetes medications taking, action and side effects 1- Monitoring- Demonstrate proper use of meter; identify recommended blood glucose targets and personal targets 1- Acute Complications- List symptoms & treatment of hyper- and hypoglycemia, DKA, sick day guidelines; guidelines for severe weather or situation crisis and diabetes supply management Diabetes Education Referral placed: Yes Snapshot updated: Yes Medication list updated: Yes Flow sheet updated: Not Applicable Parts of the initial assessment may be deferred if applicable and the rationale for deferment is documented documented in this encounter Miscellaneous Notes * Patient Instructions - Betsy Garcia APRN - 04/12/2025 12:40 PM EDT Test sugars at fasting and 2 hours after lunch or last meal of the day. Or start sensor, DEXCOM Increase trulicity to 1.5 mg once a week after 4 weeks of the 0.75 mg dose Continue farxiga and metformin at current dosing. Salivary Cortisol Testing Instructions Collect saliva specimen between 11:00 PM and 1:[address] swab under tongue for 2 minutes, or until completely saturated ( Specimens are frequently returned due to quantity non sufficient. Please use the WHOLE 2 minutes to avoid this.) Once complete, place swab back in the tube and place in refrigerator or freezer. The samples must be kept cold. Include your name, date of , time, and date that these were collected on the labels provided Do not eat 1 hour prior to collecting specimen Do not consume alcohol 12 hours prior to collecting specimen Do not brush teeth prior to collection Rinse mouth with water 10 minutes prior to collecting specimen Repeat for the second specimen. SKIP ONE DAY IN BETWEEN COLLECTIONS. For example, if you do the first one on Thursday, skip Thursday, and collect the second one on Thursday. Please return the samples within one week of receiving the supplies. Have fasting labs done on or after may 11. documented in this encounter Plan of Treatment Upcoming Encounters Date Type Department Care Team (Late st Contact Info) Description 05/24/2025 12:00 PM EST Office Visit SEP Diabetes [address] [address] Betsy Garcia APRN [address] [phone] Scheduled Orders Name Type Priority Associated Diagnoses Orde r Schedule ADRENOCORTICOTROPIC HORMONE -REF LAB Lab Routine Abnormal weight gain 1 Occurrences starting 04/12/2025 until 04/12/2026 CORTISOL Lab Routine Abnormal weight gain 1 Occurrences starting 04/12/2025 until 04/12/2026 DEHYDROEPIANDROSTERONE SULFATE Lab Routine Abnormal weight gain 1 Occurrences starting 04/12/2025 until 04/12/2026 CORTISOL SALIVA-REF LAB Lab Routine Abnormal weight gain 1 Occurrences starting 04/12/2025 until 04/12/2026 CORTISOL SALIVA-REF LAB Lab Routine Abnormal weight gain 1 Occurrences starting 04/12/2025 until 04/12/2026 COMPREHENSIVE METABOLIC PANEL Lab Routine Encounter for long-term (current) use of medications 1 Occurrences starting 04/12/2025 until 04/12/2026 C-PEPTIDE Lab Routine Type 2 diabetes mellitus with hyperglycemia, without long-term current use of insulin (HCC) 1 Occurrences starting 04/12/2025 until 04/12/2026 FRUCTOSAMINE Lab Routine Type 2 diabetes mellitus with hyperglycemia, without long-term current use of insulin (HCC) 1 Occurrences starting 04/12/2025 until 04/12/2026 HEMOGLOBIN A1C Lab Routine Type 1 diabetes mellitus with 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, with halfway current use of insulin pump (HCC) 1 Occurrences starting 04/12/2025 until 04/12/2026 LIPID PANEL REFLEX Lab Routine Dyslipidemia associated with type 2 diabetes mellitus (HCC) 1 Occurrences starting 04/12/2025 until 04/12/2026 VITAMIN B12 LEVEL Lab Routine Encounter for long-term (current) use of medications 1 Occurrences starting 04/12/2025 until 04/12/2026 MICROALBUMIN/CREATININE RATI O URINE Lab Routine Type 2 diabetes mellitus with hyperglycemia, without long-term current use of insulin (HCC) Expected: 07/03/2025 (Approximate), Expires: 04/12/2026 Scheduled Referrals Name Type Priority Associated Diagnoses Orde r Schedule AMB REFERRAL TO DIABETIC EDUCATION PROGRAM Outpatient Referral Routine Type 2 diabetes mellitus with hyperglycemia, without long-term current use of insulin (HCC) Ordered: 04/12/2025 AMB REFERRAL TO DIABETIC EDUCATION - DIABETIC EQUIPMENT EDUCATION Outpatient Referral Routine Type 2 diabetes mellitus with diabetic polyneuropathy, with long-term current use of insulin (HCC) Ordered: 04/12/2025 documented as of this encounter Goals Goal Patient Goal Type Associated Problems Recent Progress Patient-Stated? Author Blood Pressure < 140/90 Blood Pressure 118/68(2024 12:26 PM EDT) No Belinda Yeboah MA BMI (Calculated) < 30 General 48.4(04/12/20 12:26 PM EDT) Belinda Qureshi MA Maintain a healthy diet, exercise regularly and maintain an ideal body weight General No Lea Martinez RMA Stay Tobacco Free Lifestyle No Lea Martinez RMA HEMOGLOBIN A1C < 7.0 Result Component 10(10/27/2024 2:03 PM EDT) No Belinda Yeboah MA documented as of this encounter Visit Diagnoses Diagnosis Type 2 diabetes mellitus with hyperglycemia, without long-term current use of insulin ([facility])- Primary Abnormal weight gain Dyslipidemia associated with type 2 diabetes mellitus (HCC) Type II or unspecified type diabetes mellitus with other specified manifestations, not stated as uncontrolled Encounter for long-term (current) use of medications Encounter for long-term (current) use of other medications Essential hypertension Unspecified essential hypertension Vitamin D deficiency Unspecified vitamin D deficiency Type 2 diabetes mellitus with diabetic polyneuropathy, with long-term current use of insulin ([facility]) Diabetic polyneuropathy associated with type 2 diabetes mellitus (HCC) ADAMS (obstructive sleep apnea) Obstructive sleep apnea (adult) (pediatric) Microalbuminuric diabetic nephropathy (HCC) Type 1 diabetes mellitus with 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, with halfway current use of insulin pump ([facility]) documented in this encounter Discontinued Medications Medication Sig Discontinue Reason Start Date End Da te tirzepatide (MOUNJARO) 5 mg/0.5 mL SubQ Pen InjectorIndications:T ype 2 diabetes mellitus with stage 2 chronic kidney disease, without long-term current use of insulin ([facility]) Subcutaneous (Inject under the skin) 5 mg once a week. Cost of medication 10/27/2024 04/12/2025 documented as of this encounter Historical Medications * This list may reflect changes made after this encounter. Medication Sig Dispense Quantity Refills Last Filled Start D ate End Date SYMBICORT 160-4.5 mcg/actuation Inhl HFA Aerosol Inhaler 04/04/2025 added in this encounter Additional Health Concerns Assessment Noted Time PHQ-9 Depression Total Score: 17 024 1:00 PM EDT PHQ-2 Depression Total Score: 5 03/30/20 24 1:00 PM EDT documented as of this encounter Care Teams Civil Engineer Helper Relationship Specialty Start Date End Date Domo Odonnell MD [address] [place] [address] PCP - General Family Medicine 12/06/12 Lali Hyde APRN [address] [place] [address] Nurse Practitioner 05/16/16 documented as of this encounter
[2025-04-21 05:52] VITALS: BMI 48.2
--- OUTSIDE RECORDS SUMMARY | 2025-04-21 10:41 | XMS_ITS | Clinical Summary ---
Author Organization [facility] Address [address] [place] [address] Phone Care Team Providers Care Acute Care Clinical Nurse Specialist Name Role Phone Domo Odonnell MD Primary Care Provider [phone] Lali Hyde APRN Unavailable [phone] Allergies Active Allergy Reactions Criticality Noted [...] fluid retention Semaglutide Other (See Comments) 10/27/2024 Wilkinson poorly on this. Did much better on [...] lancets (ONETOUCH DELICA PLUS LANCET) 30 gauge [facility] MiscIndications:T ype 2 diabetes mellitus with stage 2 chronic kidney disease, unspecified whether halfway insulin use (HCC) 1 EACH BY [facility]NON-DRUG; COMBO ROUTE) ROUTE DAILY. 100 Each 025 Active ONETOUCH ULTRA TEST [facility] StripIndications: Type 2 diabetes mellitus with stage 2 chronic kidney disease, unspecified whether rat exterminator insulin use (HCC) USE TO TEST BLOOD SUGAR ONCE DAILY 100 Strip 025 Active Blood-Glucose Meter (ONETOUCH ULTRA2 METER) [facility] USE DIRECTED TO CHECK BLOOD SUGAR [...] disease, without long-term current use of insulin ([facility]) Take 1 Tablet by mouth daily. 90 Tablet 1 025 Active apixaban (ELIQUIS) 5 mg Oral TabletIndications :Typical atrial flutter (HCC),Cerebrovasc ular accident, old Take 1 Tablet by mouth 2 times daily. 180 Tablet 1 025 Active metFORMIN (GLUCOPHAGE) 1,000 mg Oral TabletIndications :Type 2 diabetes mellitus with stage 2 chronic kidney disease, with long-term current use of insulin ([facility]) TAKE 1 TABLET BY MOUTH 2 TIMES [...] disease, with long-term current use of insulin ([facility]) 1 EACH BY [facility].(NON-DRUG; COMBO ROUTE) ROUTE EVERY 10 DAYS. 3 Each Active Additional Information Patient not taking.Reported on 04/12/2025 SYMBICORT 160-4.5 mcg/actuation Inhl HFA Aerosol Inhaler Active DEXCOM G7 SENSOR [facility] DeviceIndications :Type 1 diabetes mellitus with 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, with halfway current use of insulin pump ([facility]) 1 Each by [facility].(Non-Drug; Combo Route) route every 10 days. Dx code: E10.9 1 Each Active DEXCOM G7 FACILITY ENGINEER [facility] MiscIndications:T ype 1 diabetes mellitus with 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, with halfway current use of insulin pump ([facility]) 1 Each by [facility].(Non-Drug; Combo Route) route continuous. Use as directed for continuous blood glucose monitoring. 1 Each Active amitriptyline (ELAVIL) 50 mg Oral TabletIndications :Fibromyalgia TAKE 1 TABLET BY MOUTH NIGHTLY. 30 Tablet 2 Active dulaglutide (TRULICITY) 0.75 mg/0.5 mL SubQ Pen Injector SUBCUTANEOUS (INJECT UNDER THE SKIN) 0.5 ML ONCE A WEEK. 2 mL 025 Active tirzepatide (MOUNJARO) 5 mg/0.5 mL SubQ Pen InjectorIndicatio ns:Type 2 diabetes mellitus with stage 2 chronic kidney disease, without long-term current use of insulin ([facility]) Subcutaneous (Inject under the skin) 5 mg once a week. 2 mL 5 025 2024 Discontinued(C ost of medication) dulaglutide (TRULICITY) 0.75 mg/0.5 mL SubQ Pen Injector Subcutaneous (Inject under the skin) 0.5 mL once a week. 2 mL 2 025 2024 Discontinued amitriptyline (ELAVIL) 50 mg Oral TabletIndications :Fibromyalgia TAKE 1 TABLET BY MOUTH NIGHTLY. 30 Tablet 2 025 2024 Discontinued Active Problems Patient Care Coordination No te Formatting of this note migh t be different from the original. [facility] audit completed by Purnima Caballero RN on [...] & Plan (09/12/2022 7:00 AM EST): Adding farideh for DM Work on low calorie, low [...] patients risk of GI bleeding, risk of VP SECURITY bleeding or other medication / medical condition [...] 09/09/2015 09/12/2015 CVA (cerebral vascular accid ent) ([facility]); 09/2015; MRI + of multiple small infarcts [...] Type Department Care Team Description 04/17/2025 Refill [facility] [address] [place] [address] Domo Odonnell MD Medication Refill 04/12/2025 12:40 PM EDT Office Visit [facility] [address] [address] Betsy Garcia APRN Type 2 [...] halfway current use of insulin pump (HCC) 02/09/2025 Abstract [facility] [address] [place] [address] Danielle Perez RMA 01/26/2025 Abstract [facility] [address] [place] [address] Domo Odonnell MD from Last 3 [...] drink = 0.6 oz pur e alcohol) [facility] Utilities Answer Date Recorded In the past 12 months has [employer], gas, oil, or water [employer] threatened to shut off services in your home? Yes 11/26/2023 Overall Financial Resource Strain (CARDIA) Answe r Date Recorded How hard is it for you to pa y for the very basics like food, housing, medical care, and heating? Not hard at all 11/26/2023 PHQ-2 Answer Date Recorded PHQ-2 Total Score 5 03/30/2024 [facility] of Occupat ional Health - Occupational Stress [...] any time in the past 12 m [facility], were you homeless or living in a [...] 12:00 PM EST Office Visit [facility] [address] [place] [address] Betsy Garcia, JANET [address] [address] Health Maintenance Due Date Last [...] <200 mg/dL 10/27/2024 8:40 PM EDT [facility] Tagged Comment: < 200 Desirable 200 - 239 Borderline High >= 240 High Triglyceride 186(H) <150 mg/dL 10/27/2024 8:40 PM EDT [facility] Comment: < 150 Normal 150 - 199 Borderline High 200 - 499 High >= 500 Very High HDL 35(L) >=40 mg/dL 10/27/2024 8:40 PM EDT [facility] Comment: > 60 Optimal 40 - 60 Acceptable < 40 Low LDL Calculated 88 <100 mg/dL 10/27/2024 8:40 PM EDT [facility] Comment: < 100 Optimal 100 - 129 Near or above optimal 130 - 159 Borderline High 160 - 189 High >= 190 Very High The National Institutes of Health (NIH) equation is used for all lipid panels that report calculated LDL (LDL-C). Non-HDL-C Calculated 120 <=129 mg/dL 10/27/2024 8:40 PM EDT [facility] Comment: <130 Desirable 130-159 Above Desirable 160-189 Borderline High 190-219 High >= 220 Very High Fasting Specimen? Yes None 025 8:40 PM EDT [facility] Blood VENOUS BLOOD / Unknown Venipuncture / Unknown 10/27/2024 2:35 PM EDT 10/27/2024 2:35 PM EDT us Domo Odonnell MD CHEMISTRY ORDERABLES Final Re sult [facility] [address] [facility] , [place] [address] * (ABNORMAL) MICROALBUMIN/CREATININE RATIO URINE (10/27/2024 2:35 [...] Final Result [facility] [address] [facility] , [address] [place] [id number] * (ABNORMAL) COMPREHENSIVE METABOLIC PANEL (10/27/2024 2:35 [...] 8:40 PM EDT [facility] eGFR (CKD-EPIcr 2020) 68 >=60 mL/min/1.7 3 m2 10/27/2024 8:40 PM EDT [facility] Comment:Estimated GFR was ca lculated using the CKD-EPIcr (2020) equation refit without race. The equation is recommended by the National Kidney Foundation - [place] Society of Nephrology Task Force. Blood VENOUS BLOOD / Unknown Venipuncture / Unknown 10/27/2024 2:35 PM EDT 10/27/2024 2:35 PM EDT Domo Odonnell MD CHEMISTRY ORDERABLES Final Re sult [facility] [address] [facility], [place] [address] * [facility] EGD-COLONOSCOPY (08/26/2017 8:30 AM EST) 08/26/2017 8:30 AM EST Impressions [facility] - 08/26/2017 9:03 AM EST Plan: Colonoscopy in 5 years This section is an excerpt of the full report. Ronny Bryan MD GI PROCEDURE ORDERABLES Fin al Result Performing Organization Address City/[facility]/ZIP Co de Phone Number [facility] [address] [place] [address] from Last 3 Months or Most Recently Relevant to Health Maintenance [place] [id number] [facility] [employer] [place] [id number] 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
--- OUTSIDE RECORDS SUMMARY | 2025-04-21 10:41 | XMS_ITS | Encounter Summary ---
Author Organization Healthcare Address [address] [place] [address] Care Team Providers Care Pulmonologist Intensivist Name Role Phone Domo Odonnell MD Primary Care Provider [phone] Festus Alan MD Unavailable [phone] Festus Alan MD Unavailable Encounter Details Date Type Department Care Team (Late st Contact Info) Description 11/27/2020 [facility] [address] [place] [address] Festus Alan MD [address] [place] [address] Social History Tobacco Use Types [...] on filedocumented in this encounter Care Teams Pulmonologist Intensivist Relationship Specialty Start Date End Date Domo Odonnell MD [address] [place] [id number] PCP - General 11/16/20 Festus Alan MD [address] [place] [address] Surgeon Neurosurgery 01/25/21 Festus Alan MD [address] [place] [address] Surgeon Neurosurgery 03/15/21 documented as of this encounter
--- OUTSIDE RECORDS SUMMARY | 2025-04-21 10:41 | XMS_ITS | Clinical Summary ---
Author Organization [facility] Address [address] [place] [address] Care Team Providers Care Finishing Area Operator Name Role Phone Domo Odonnell MD Primary Care Provider [phone] Festus Alan MD Unavailable [phone] Festus Alan MD Unavailable [phone] Allergies Active Allergy Reactions Criticality Noted [...] 07/26/19 21 Active Blood Glucose Monitoring Suppl (CarWoo!Style glucose monitoring) kit Use as directed to check blood sugar 07/24/19 18 Active fluorouracil (Efudex) 5 % cream Apply topically twice a day. 03/11/20 19 Active glucose blood (Ui Linkuch Ultra) test strip USE TO TEST BLOOD [...] tablet 03/04/20 Active Lancets (OneTouch Delica Plus [id number]) misc SUBCUTANEOUS (INJECT UNDER THE SKIN) 1 [...] (2 of 2 - PCV) 12/19/2018 12/19/2017 [id number] Vaccine (1 - season) 2025 UKY-Influenza Vaccine [...] this topic Medical Devices Implanted Type Area [employer] Heater Device Identifier Shelf Expiration Date Model / Serial / Lot Closure Device Vip Angioseal 8 Fr - [id number] Implanted:Qty: 1 on 02/27/2021 by Festus Alan MD at [facility] [id number] 09/02/2021 [id number] / / [id number] Insurance [facility] MEDICAID Care Teams Finishing Area Operator Relationship Specialty Start Date End Date Domo Odonnell MD [address] [place] [address] PCP - General 11/16/20 Festus Alan MD [address] [place] [address] Surgeon Neurosurgery 01/25/21 Festus Alan MD [address] [place] [address] Surgeon Neurosurgery 03/15/21
--- OUTSIDE RECORDS SUMMARY | 2025-04-21 10:41 | XMS_ITS | Encounter Summary ---
Author Organization [place] [address] Care Team Providers Care Account Support Analyst Name Role Phone Domo Odonnell MD Primary Care Provider [phone] Lali Hyde IRONING WORKER Unavailable [phone] Reason for Visit * Reason Comments Medication Refill Encounter Details Date Type Department Care Team (Late st Contact Info) Description 04/17/2025 Refill [facility] [address] [facility] [place] [address] Domo Odonnell MD [address] [place] [address] Medication Refill Social History Tobacco Use Types Packs/Day Years Used Date Smoking Tobacco: Former Cigarettes 4 33.2 0 07/06/1982 - 09/09/2015 Smokeless Tobacco: Never Alcohol Use Standard Drinks/Week Comments No 0 (1 standard drink = 0.6 oz pur e alcohol) [facility] Utilities Answer Date Recorded In the past 12 months has [employer], gas, oil, or water company threatened to shut off services in your home? Yes 11/26/2023 Overall Financial Resource Strain (CARDIA) Francise r Date Recorded How hard is it for you to pa y for the very basics like food, housing, medical care, and heating? Not hard at all 11/26/2023 PHQ-2 Answer Date Recorded PHQ-2 Total Score 5 03/30/2024 [facility] [place] of Occupat ional Health - Occupational Stress [...] any time in the past 12 m [facility], were you homeless or living in a intermediate (including now)? No 11/26/2023 Sexually Active Control [...] Refills Last Filled Start Date End Date dulaglutide (TRULICITY) 0.75 mg/0.5 mL SubQ Pen Injector SUBCUTANEOUS (INJECT UNDER THE SKIN) 0.5 ML ONCE A WEEK. 2 mL 04/19/2025 amitriptyline (ELAVIL) 50 mg Oral TabletIndications :Fibromyalgia [...] and sent to requesting pharmacy. Routed to [facility] if an appointment is needed. TRULICITY 0.75 mg/0.5 mL Refill request deferred to the office: Medication noted as not taking Future Visit: None Last Assessed Visit: 10/27/2024 Follow-Up: 04/28/2025 documented in this encounter Plan of Treatment Upcoming Encounters Date Type Department Care Team (Late st Contact Info) Description 05/24/2025 12:00 PM EST Office Visit [facility] [address] [place] [address] Betsy Garcia APRN [address] [address] documented as of this encounter [...] Da te amitriptyline (ELAVIL) 50 mg Oral TabletIndications:Fib romyalgia TAKE 1 TABLET BY MOUTH NIGHTLY. 01/13/2025 04/19/2025 dulaglutide (TRULICITY) 0.75 mg/0.5 mL SubQ Pen Injector Subcutaneous (Inject under the skin) 0.5 mL once a week. 10/28/2024 04/19/2025 documented as of this encounter Additional Health Concerns Assessment Noted Time PHQ-9 Depression Total Score: 17 024 1:00 PM EDT PHQ-2 Depression Total Score: 5 03/30/20 24 1:00 PM EDT documented as of this encounter Care Teams Account Support Analyst Relationship Specialty Start Date End Date Domo Odonnell MD [address] [place] [address] PCP - General Family Medicine 12/06/12 Lali Hyde APRN [address] [place] [address] Nurse Practitioner 05/16/16 documented as of this encounter
[2025-04-21 11:33] LABS: Hematocrit 38.7 % (37.0-47.0); Hemoglobin 12.4 g/dL (12.2-16.2); Immature Granulocytes % 0.5 %; Mean Corpuscular HGB Conc 32.0 g/dL (31.8-35.4); Mean Corpuscular Hemoglobin 29.2 pg (27.0-31.2); Mean Corpuscular Volume 91.3 fl (81-99); Nucleated Red Blood Cells % 0 %; Platelet Count 319 K/mm3 (142-424); Red Blood Count 4.24 M/mm3 (4.20-5.40); Red Cell Distribution Width-SD 44.2 fL; White Blood Count 12.5 K/mm3 (4.8-10.8)
[2025-04-21 11:46] LABS: Alanine Aminotransferase 18 U/L (12-78); Albumin Level 4.0 g/dl (3.5-5.0); Albumin/Globulin Ratio 1.5 (1.1-1.8); Alkaline Phosphatase 103 U/L (38-126); Anion Gap 15.7 mEq/L (5-15); Aspartate Amino Transferase 17 U/L (14-36); Bilirubin,Total 0.5 mg/dl (0.2-1.3); Blood Urea Nitrogen 12 mg/dl (7-17); Calcium 9.2 mg/dl (8.4-10.2); Carbon Dioxide 26 mmol/L (22.0-30.0); Chloride 99 mmol/L (98-107); Creatinine Clearance Estimated 49 mL/min (50-200); Creatinine,Serum 1.00 mg/dl (0.52-1.04); Estimated Glomerular Filt Rate 57 ml/min (>60); GFR (African American) 69 ML/MIN (>60); Globulin 2.7 g/dL (1.3-3.2); Glucose 215 mg/dl (74-100); Potassium 4.7 mmoL/L (3.5-5.1); Sodium 136 mmol/L (136-145); Total Protein,Serum 6.7 g/dl (6.3-8.2)
[2025-04-21 14:23] LABS: HCG Qualitative, Serum Negative (Negative)
== END 2025-04-21 23:59 | disposition home or self-care (01) ==
LOC: PREOP 10:36
PROVIDERS: PCP Family Medicine; Visit Provider Obstetrics & Gynecology
DX: Z01.812 Encounter for preprocedural laboratory examination (principal)
CPT/HCPCS: 80053; 84703; 85025

== ENCOUNTER 2025-04-28 06:01 | Day surgery (SDC) | payer MEDICAID, SELFPAY ==
[2025-04-21 13:49] VITALS: BMI 48.2
[2025-04-28] VITALS (12 sets, daily range): BP systolic 126–158; BP diastolic 66–100; PULSE 75–104; RESP 16–18; TEMP 36.3–36.4; O2SAT 94–98
[2025-04-28] MEDS: LACTATED RINGERS 1000ML 1,000 ML 25 ML IV (06:20)
[2025-04-28 06:47] LABS: POC Glucose,Bedside 224 gm/dL (70-110)
--- NOTE | 2025-04-28 07:03 | EXP.ANES.CKL ---
[facility] Disclaimer: The information contained in this section may have been updated after the patient was seen, as this information can be updated by other users. Medical History Encounter for screening for malignant neoplasm of lung Dyspnea on exertion Asthma Sleep apnea Hyperlipidemia Hypertension Afib Postmenopausal bleeding ADAMS on CPAP quit using CPAP several months ago as 02/05/2022. 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 History of atrial fibrillation Diabetes Surgical History History of esophagogastroduodenoscopy (EGD) History of hysteroscopy w/Myosure resection History of left salpingo-oophorectomy History of D&C History of oral surgery Family History Other Alcoholism Anemia Asthma Cancer Diabetes Hyperlipidemia Hypertension Stroke Thyroid disorder Social History (Updated 04/28/25 @ 06:28 by Danielle Mcarthur RN) Smoking Status: Former smoker tobacco type: cigarettes alcohol intake: never substance use type: denies use current occupational status: disabled Travel in the last 8 weeks?: None household members: other housing: other caffeine: No Have you lived/traveled outside US in past 30 days?: No Contact w/someone who lives/traveled outside US past 30 days?: No Exposure to someone with infectious disease in past 14 days?: No Do you have a fever (greater than 100.4 F or 38 C)?: No Have you tested positive for COVID-19?: No Exposed to someone with COVID-19 in past 14 days?: No Do you have a sore throat?: No Do you have a cough?: No Do you have any weakness?: No Are you experiencing any nausea/vomitting?: No Do you have any diarrhea?: No Are you experiencing any unusual bleeding?: No Do you have any muscle aches/pain?: No Do you have any abdominal pain?: No Are you experiencing loss of taste or smell?: No [facility] Anesthesia Checklist Patient Identification Patient Identification: Arm Band and Verbal (Name & ) Structural Data Admitted From: Home Planned Operative Procedure/s: D&C, biopsy Verified Documents: Surgical Consent NPO Status Verified Time NPO: 00:00 Chart Verification Results Verified: None Additional verifications Anesthesia Reactions: No Hx Blood Transfusions: Yes Blood Transfusion Reaction: No Airway Assessment Mallampati Score:: Class II C-Spine Mobility Assessed: Yes TMJ Mobility Assessed: Yes Dentition: Edentulous Neurological Assessment Level of Consciousness: Awake, Alert and Appropriate Hx Seizures: No Numbness or tingling in extremities: No Anesthesia Plan Anesthesia Risk discussed: Yes Anesthesia Plan: Verified ASA Class: III Anesthesia Type: General
--- NOTE | 2025-04-28 08:29 | EXP.ANES.I ---
[facility] Anesthesia Record Part I Anesthesia Record I Intake, IV Amount: 600 Hydration: Adequate Estimated blood loss (mL): 10 Urine output (mL): 50 Blood Pressure: 141/82 SaO2: 94 Pulse Rate: 104 Airway Patency: Patent Respiratory Rate: 18 Temperature: 97.3 F Patient is:: Awake and Stable
[2025-04-28 08:40] LABS: POC Glucose,Bedside 213 gm/dL (70-110)
--- NOTE | 2025-04-28 10:42 | SUR.PHASEII ---
received verbal order from dr long to discharge patient if patient is ok with it. discussed with patient and she stated she is good with that. vitals are stable at this time. discussed discharge instructions with patient and told her i would call her with any further instructions if anything changes. pt and verbalized understanding.
--- NOTE | 2025-04-28 11:18 | P.OP_ITS ---
Date of procedure: 04/28/25 Pre-op Diagnosis:: 1. Postmenopausal bleeding 2. Poorly controlled diabetes 3. Thickened endometrial stripe Post-op Diagnosis:: 1. Postmenopausal bleeding 2. Poorly controlled diabetes 3. Thickened endometrial stripe Procedure performed:: Hysteroscopy, dilation, and MyoSure curettage Surgeon:: Lea De León DO CAPTAIN AIRLINE PILOT:: Tarsha Pennington Anesthesia: GETA Estimated blood loss (mL): 5 Operative findings:: Findings: -EUA was nonrevealing secondary to body habitus. Minimal apical support defects. No significant anterior or posterior wall support defects. -Hysteroscopy revealed proliferative endometrium. Operative note:: The patient was taken back to the OR where general anesthesia was obtained.? She was placed in the dorsal lithotomy position using yellow fin stirrups and steri vishal prepped and draped in the usual fashion.? An in and out catheter was used to drain her bladder.? A timeout was performed.? A weighted speculum was used to visualize this cervix, a single-tooth tenaculum was applied to the anterior lip of the cervix. The cervix was only slightly dilated to allow entry to the ectocervix and hydrodisection was used to get the scope the rest of the way into the cavity. The hysterscope was inserted and a large polyp was noted as described above. Images were obtained of the cavity. The tubal ostia were obscured by the polyp and not easily visible.? Decision was made to proceed with the MyoSure for curettage. Device set up, primed and zeroed. The device was used to resect the outer edge of the polyp until the complete polyp was removed down to the base. At the conclusion of the procedure there was a fluid deficit of 45mLs. Total myosure cutting time was 60 seconds. Following complete removal of the polyps the MyoSure hysteroscope was removed.? The single-tooth tenaculum was removed and hemostasis was noted at the tenaculum sites.? All instruments were removed from the vagina.? All counts were correct, per nursing.? This concluded the procedure, the patient was awakened from anesthesia, and transferred to the PACU in stable condition. Condition: stable Disposition: PACU Specimens:: Endometrial curettings Complications:: None
--- NOTE | 2025-05-01 12:50 | EXP.ANES.II ---
[facility] Anesthesia Record Part II Anesthesia Record Part II Discharge Time: 10:30 Destination: Surgical Day Care (OP Surgery) PACU nurse assessment reviewed?: Yes Patient Condition:: Good Anesthesia Complications:: None Swallowing reflex intact?: Yes Airway Patency: Patent Cyanosis?: No Blood Pressure: 146/82 SaO2: 98 Respiratory Rate: 16 Pulse Rate: 75 Temperature: 97.4 F Mental Status: Alert & Oriented Pain level:: 0 Nausea and/or vomitting:: None Intake, IV Amount: 0 Hydration: Adequate
[2025-05-01 12:51] VITALS: BP 146/82; PULSE 75; RESP 16; TEMP 36.3; O2SAT 98
== END 2025-04-28 10:45 | disposition home or self-care (01) ==
PROVIDERS: PCP Family Medicine; Visit Provider Obstetrics & Gynecology
PROC: 0UDB8ZZ Extraction of Endometrium, Via Natural or Artificial Opening Endoscopic (ICD-10-PCS; CPT 58558; principal; 2025-04-28 07:30)
DX: N85.8 Other specified noninflammatory disorders of uterus (principal); N95.0 Postmenopausal bleeding; L68.0 Hirsutism; L83 Acanthosis nigricans; I10 Essential (primary) hypertension; E11.40 Type 2 diabetes mellitus with diabetic neuropathy, unspecified; I48.91 Unspecified atrial fibrillation; E78.5 Hyperlipidemia, unspecified; J45.909 Unspecified asthma, uncomplicated; G47.33 Obstructive sleep apnea (adult) (pediatric); E66.9 Obesity, unspecified; Z88.0 Allergy status to penicillin; Z88.1 Allergy status to other antibiotic agents; Z88.6 Allergy status to analgesic agent; Z87.891 Personal history of nicotine dependence; Z79.84 Long term (current) use of oral hypoglycemic drugs; Z79.01 Long term (current) use of anticoagulants; Z99.89 Dependence on other enabling machines and devices; Z68.44 Body mass index [BMI] 60.0-69.9, adult
CPT/HCPCS: 58558; 82962; J1100; J1200; J2003; J2250; J2405; J2704; J3010; J7120